=== PATIENT | female | born 1950 | race Caucasian/White ===

== ENCOUNTER 2023-06-25 09:35 | Outpatient (AMB) | payer MEDICARE, SELFPAY ==
--- NOTE | 2023-06-25 10:49 | MHC.OFFWIV ---
Intake Vital Signs 06/25/23 10:51 Height 5 ft 8 in Weight 138 lb BMI 21.0 BP 140/70 H Blood Pressure Location Rt brachial Position Sitting Pulse 86 Pulse Source Pulse Oximeter Temp 98.1 F Temp Source Oral Pulse Oximetry (%) 96 Oxygen Delivery Method Room Air Intake Visit Reasons: EP Lft ear blocked Intake Note: Pt is here today c/o Lt ear blocked Patient Tobacco Use Status: Never used Tobacco Allergies notatum Allergy (Unknown, Uncoded 06/25/23 10:50) Rash Penicillium Notatum Allergy (Unknown, Uncoded 06/25/23 10:50) Rash sulfa Allergy (Unknown, Uncoded 06/25/23 10:50) Rash HPI EP Lft ear blocked HPI Details Patient is a 72-year-old female comes to the walk-in clinic complaining of left ear blockage sensation, with decreased hearing. This has been going on for some time and worsened recently. No report of ear pain, obvious discharge, nasal congestion or other respiratory symptoms, dizziness or headache, weakness, myalgias or malaise, fever chills, or other significant associated symptoms PFSH Social History Patient Tobacco Use Status: Never used Tobacco Review of Systems Const All systems reviewed & are unremarkable except as noted in HPI and below Physical Exam Vital Signs: Last Vital Signs Temp 98.1 F 06/25/23 10:51 Pulse 86 06/25/23 10:51 BP 140/70 H 06/25/23 10:51 Pulse Ox 96 06/25/23 10:51 Oxygen Delivery Method Room Air 06/25/23 10:51 BMI result Body Mass Index 21.0 HEENT Ears: hearing grossly normal bilaterally, external ears normal, TM normal on the left and unable to visualize TM (Right side, due to excessive cerumen) Office Procedures Cerumen Removal From which ear canal was the cerumen removed: left Removal: irrigation Notes: patient tolerated procedure well and no complications [id number] Irrigation/Lavage Assessment & Plan Assessment & Plan (1) Impacted cerumen of left ear: Code(s): H61.22 - Impacted cerumen, left ear Plan: Patient had resolved difficulty hearing and blockage sensation to the left ear after irrigation/lavage by MA. No complications with procedure, and patient was satisfied. She knows to follow up as needed Coding Level of Care Code Est Pt Level 3 (99541) Diagnoses Impacted cerumen of left ear H61.22 CPT Codes Office Procedure - CPT: 84853-Lyt Irrigation/Lavage ([id number])
[2023-06-25 10:51] VITALS: BP 140/70; PULSE 86; TEMP 36.7; O2SAT 96; BMI 21.0
== END 2023-06-25 13:52 | disposition home or self-care (01) ==
PROVIDERS: PCP Internal Medicine; Visit Provider Physician Assistant Medical
DX: H61.22 Impacted cerumen, left ear (principal)
CPT/HCPCS: 69209; 99213

== ENCOUNTER 2023-08-19 13:08 | Outpatient (AMB) | payer MEDICARE, SELFPAY ==
--- NOTE | 2023-08-19 13:09 | MHC.OFFWIV ---
Intake Vital Signs 08/19/23 13:42 Height 5 ft 8 in Weight 139 lb BMI 21.1 BP 160/90 H Blood Pressure Location Lt brachial Position Sitting Pulse 85 Pulse Source Pulse Oximeter Temp 97.6 F Temp Source Temporal Artery Scan Pulse Oximetry (%) 97 Oxygen Delivery Method Room Air Intake Visit Reasons: Tick Bite RT Hip Intake Note: Pt is here today for tick bite on RT hip, Pt states she believes her pulled it out. started today Patient Tobacco Use Status: Never used Tobacco Allergies notatum Allergy (Unknown, Uncoded 08/19/23 14:11) Rash Penicillium Notatum Allergy (Unknown, Uncoded 08/19/23 14:11) Rash sulfa Allergy (Unknown, Uncoded 08/19/23 14:11) Rash Medication List - Last Reconciled 08/19/23 by Rosanna Conner CNP amlodipine 10 mg PO DAILY anastrozole 1 mg PO DAILY fulvestrant 500 mg IM .every month levothyroxine (Synthroid) 88 mcg PO DAILY lorazepam 0.5 mg PO DAILY PRN metoprolol tartrate 25 mg PO BID prednisone 3mg alternative 2mg QOD rosuvastatin 5 mg PO DAILY triamcinolone acetonide 0.025% 1 appl topical BID Do you need a note to return to daycare/school/sports/work: No HPI HPI Comments History of Present Illness Details 73 yo female presents to walk-in clinic with tick bite right hip, she reports her was able to get part of the tick out but not all. She only noticed the tick this morning when she woke up. She denies fever, chills or bulls eye at site. [facility] Social History Patient Tobacco Use Status: Never used Tobacco Review of Systems Const All systems reviewed & are unremarkable except as noted in HPI and below Physical Exam Vital Signs: Last Vital Signs Temp 97.6 F 08/19/23 13:42 Pulse 85 08/19/23 13:42 BP 160/90 H 08/19/23 13:42 Pulse Ox 97 08/19/23 13:42 Oxygen Delivery Method Room Air 08/19/23 13:42 BMI result Body Mass Index 21.1 Const General: no acute distress and well developed Orientation/consciousness: patient oriented x3 Limitations: no limitations Chest Chest palpation & inspection: normal inspection of the chest Resp Effort & Inspection: normal respiratory effort, no cough and no respiratory distress Auscultation: clear to auscultation bilaterally Cardio Rate: regular rate Rhythm: regular rhythm Heart sounds: S1 normal heart sound present and S2 normal heart sound present Peripheral pulses: Peripheral pulses 2+ throughout GI Palpation (GI): Soft to palpation and nontender General: Yes no CVA tenderness Back/Spine/Pelvis Back: no CVA tenderness Neuro General: patient oriented x3 Extrem Right lower extremity: hip/thigh (small area of erythema bug bite w/ black dot noted in the center) Psych Appearance: well kempt Mental Status: mental status grossly normal Affect: normal affect Attitude: cooperative Assessment & Plan Assessment & Plan (1) Tick bite of right hip: Code(s): S70.261A - Insect bite (nonvenomous), right hip, initial encounter; W57.XXXA - Bitten or stung by nonvenomous insect and other nonvenomous arthropods, initial encounter Plan: [age] year female seen today for recent tick bite to right hip w/ some remains. Provider was able to remove the remaining tick which appeared to be a small piece and not the head of the tick, bacitracin ointment applied to tick bite. Will treat PPX with doxycycline 100 mg po bid x 3 days; encouraged to take w/ food to reduce GI upset Return to office for worsening or unresolved symptoms Medications: New doxycycline monohydrate 100 mg PO BID 6 caps 0RF 3 days S70.261A - Insect bite (nonvenomous), right hip, initial encounter, W57.XXXA - Bitten or stung by nonvenomous insect and other nonvenomous arthropods, initial encounter Coding Level of Care Code Est Pt Level 3 (32032) Diagnoses Tick bite of right hip S70.261A; W57.XXXA
[2023-08-19 13:42] VITALS: BP 160/90; PULSE 85; TEMP 36.4; O2SAT 97; BMI 21.1
== END 2023-08-19 14:36 | disposition home or self-care (01) ==
PROVIDERS: PCP Internal Medicine; Visit Provider Nurse Practitioner Acute Care
DX: S70.261A Insect bite (nonvenomous), right hip, initial encounter (principal); W57.XXXA Bitten or stung by nonvenomous insect and other nonvenomous arthropods, initial encounter
CPT/HCPCS: 99213

== ENCOUNTER 2023-09-14 12:44 | Outpatient (AMB) | payer MEDICARE, SELFPAY ==
[2023-09-14 13:02] VITALS: BP 150/90; PULSE 80; TEMP 36.7; O2SAT 97; BMI 21.1
--- NOTE | 2023-09-14 13:02 | MHC.OFFWIV ---
Intake Vital Signs 09/14/23 13:02 Height 5 ft 8 in Weight 139 lb BMI 21.1 BP 150/90 H Blood Pressure Location Rt brachial Position Sitting Pulse 80 Pulse Source Pulse Oximeter Temp 98.0 F Temp Source Temporal Artery Scan Pulse Oximetry (%) 97 Oxygen Delivery Method Room Air Intake Visit Reasons: EP RT Ear/Wax Intake Note: pt is here for right ear blockage Patient Tobacco Use Status: Never used Tobacco Allergies notatum Allergy (Unknown, Uncoded 09/14/23 13:03) Rash Penicillium Notatum Allergy (Unknown, Uncoded 09/14/23 13:03) Rash sulfa Allergy (Unknown, Uncoded 09/14/23 13:03) Rash Do you need a note to return to daycare/school/sports/work: No HPI HPI Comments History of Present Illness Details 73 y/o female patient who presents to walk in clinic with c/o ringing in the right ear. 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 [facility] Social History Patient Tobacco Use Status: Never used Tobacco Review of Systems Const All systems reviewed & are unremarkable except as noted in HPI and below Physical Exam Vital Signs: Last Vital Signs Temp 98.0 F 09/14/23 13:02 Pulse 80 09/14/23 13:02 BP 150/90 H 09/14/23 13:02 Pulse Ox 97 09/14/23 13:02 Oxygen Delivery Method Room Air 09/14/23 13:02 BMI result Body Mass Index 21.1 Const General: comfortable and no acute distress Orientation/consciousness: patient oriented x3 HEENT Head: Yes normocephalic Ears: external ears normal and TM's normal bilaterally Neuro General: patient oriented x3, gait normal and moves all extremities Psych Speech and movement: Normal speech and movement present Assessment & Plan Assessment & Plan (1) Tinnitus of right ear: Code(s): H93.11 - Tinnitus, right ear Plan: Avoid loud noises or places Continue to monitor F/U with PCP. Coding Level of Care Code Est Pt Level 3 (84217) Diagnoses Tinnitus of right ear H93.11 Time Spent (min) 15
== END 2023-09-14 13:25 | disposition home or self-care (01) ==
PROVIDERS: PCP Internal Medicine; Visit Provider Nurse Practitioner Family
DX: H93.11 Tinnitus, right ear (principal)
CPT/HCPCS: 99213

== ENCOUNTER 2024-06-12 08:21 | Outpatient (AMB) | payer MEDICARE, SELFPAY ==
--- NOTE | 2024-06-12 08:55 | MHC.OFFWIV ---
Intake Vital Signs 06/12/24 08:57 BP 150/80 H Blood Pressure Location Rt brachial Position Sitting Pulse 98 Pulse Source Pulse Oximeter Pulse Oximetry (%) 100 Oxygen Delivery Method Room Air Intake Visit Reasons: EP Ears blocked/need flushing Intake Note: Patient here for biat ear blockage. Patient Tobacco Use Status: Never used Tobacco Allergies notatum Allergy (Unknown, Uncoded 06/12/24 08:56) Rash Penicillium Notatum Allergy (Unknown, Uncoded 06/12/24 08:56) Rash sulfa Allergy (Unknown, Uncoded 06/12/24 08:56) Rash Do you need a note to return to daycare/school/sports/work: No HPI HPI Comments History of Present Illness Details History of Present Illness - The patient is a 73-year-old female presenting with hearing impairment due to impacted cerumen in left ear but has cerumen in both ears. - She has been treated in the past for similar problems at this location, noting she has narrow ear canals. - Current symptoms involve a significant blockage in the left ear leading to decreased hearing, severe enough that she notices positional influence when sleeping. - Previous attempts using a home lavage kit did not result in successful wax removal. - The right ear has improved but reports significant constraints in hearing in the left ear due to wax concerns. Physical Exam General: Cooperative, healthy appearing, comfortable, no acute distress and well developed Orientation: Patient oriented x3 Limitations: No limitations Head: Normal to inspection Ears: Hearing impaired in the left ear due to wax blockage, EAC bilat cerumen Nose: Normal External nose present Face and sinus: Normal facial exam Eyes: Appearance normal, both eyes and all related structures Neck: Normal visual inspection and Yes full ROM Respiratory: Normal respiratory effort and able to speak in complete sentences. Skin: No rashes or lesions noted Neuro: Patient oriented x3 Extremities: Normal to inspection [facility] Social History Patient Tobacco Use Status: Never used Tobacco Review of Systems Const All systems reviewed & are unremarkable except as noted in HPI and below Physical Exam Vital Signs: Last Vital Signs Pulse 98 06/12/24 08:57 BP 150/80 H 06/12/24 08:57 Pulse Ox 100 06/12/24 08:57 Oxygen Delivery Method Room Air 06/12/24 08:57 Office Procedures Cerumen Removal From which ear canal was the cerumen removed: bilateral Removal: irrigation Notes: patient tolerated procedure well, no complications and ear canal clear [id number] Irrigation/Lavage Assessment & Plan Assessment & Plan (1) Bilateral impacted cerumen: Code(s): H61.23 - Impacted cerumen, bilateral Plan: The treatment plan involves initially using manual techniques to attempt cerumen removal with irrigation. This method accommodates the patient's preference for avoiding manual extraction and leverages the solution to effectively dissolve the wax. The patient should communicate discomfort promptly during the procedure. Patient was informed and verbally consented to the use of an ambient scribe for clinic note documentation during this visit. Coding Level of Care Code New Pt Level 4 (16100) Diagnoses Bilateral impacted cerumen H61.23 CPT Codes Office Procedure - CPT: 88639-Zqe Irrigation/Lavage ([id number])
[2024-06-12 08:57] VITALS: BP 150/80; PULSE 98; O2SAT 100
== END 2024-06-12 09:26 | disposition home or self-care (01) ==
PROVIDERS: PCP Internal Medicine; Visit Provider Physician Assistant
DX: H61.23 Impacted cerumen, bilateral (principal)

== ENCOUNTER → 2024-06-12 08:21 | Outpatient (BNVA) | payer MEDICARE, SELFPAY | PROVIDERS: PCP Internal Medicine; Visit Provider Physician Assistant | DX: H61.23 Impacted cerumen, bilateral (principal) | CPT/HCPCS: 69209; 99202 ==

== ENCOUNTER 2024-06-19 15:17 | Outpatient (AMB) | payer MEDICARE, SELFPAY ==
--- NOTE | 2024-06-19 15:22 | AM.OFFWIN_ITS ---
Intake Vital Signs 06/19/24 15:24 Weight 141 lb BP 130/86 Blood Pressure Location Rt brachial Position Sitting Pulse 68 Pulse Source Pulse Oximeter Pulse Oximetry (%) 98 Oxygen Delivery Method Room Air Intake Visit Reasons: EP Eye irritation Intake Note: Patient here for eye/face itching that started a couple of days ago, she has tried zyrtec and claritin which have not helped. Patient Tobacco Use Status: Never used Tobacco Allergies notatum Allergy (Unknown, Uncoded 06/19/24 15:25) Rash Penicillium Notatum Allergy (Unknown, Uncoded 06/19/24 15:25) Rash sulfa Allergy (Unknown, Uncoded 06/19/24 15:25) Rash Do you need a note to return to daycare/school/sports/work: No HPI HPI Comments History of Present Illness Details This is a 73-year-old female with a past medical history of hypertension, hypothyroidism, hyperlipidemia and breast cancer presenting for evaluation of facial itching that she has had for the past 5 days. Patient has used Claritin x1 and Zyrtec x1 without relief of her symptoms. Patient also used a lotion called Sarna anti itch that was also not helpful. Patient denies any new exposures including lotions, soaps, detergents, cosmetics or new med ications. Patient states that she recently decreased her dose of prednisone from 2 mg to 1 mg daily. She denies having any fevers or chills. [facility] Social History Patient Tobacco Use Status: Never used Tobacco Review of Systems Const All systems reviewed & are unremarkable except as noted in HPI and below Eyes Reports no additional complaints ENT Reports no additional complaints Card Reports no additional complaints Resp Reports no additional complaints GI Reports no additional complaints Reports no additional complaints Musc Reports no additional complaints Skin/Breast Reports system reviewed and no additional complaints, except as documented, Denies change in pigmentation, Denies changing lesions, Reports pruritus (facial only), Denies lesions, Denies non-healing lesions, Denies erythema, Denies rash and Denies skin pain Neuro Reports no additional complaints Psych Reports no additional complaints Endo Reports no additional complaints Jessee/Lymph Reports no additional complaints Aller/Immun Reports no additional complaints Physical Exam Const General: cooperative, healthy appearing, comfortable, no acute distress, well developed, alert, awake and Physically active Nutritional Appearance: average body habitus Orientation/consciousness: patient oriented x3 Limitations: no limitations Skin Other: There is very faint erythema with minimal scaling across forehead and bridge of nose, minimal faint erythema malar region of the face. No edema, no warmth or tenderness to touch. Neuro General: patient oriented x3 Psych Appearance: grossly normal Mental Status: mental status grossly normal Insight: Good insight present (Psych) Judgement: Good judgement present (Psych) Assessment & Plan Assessment & Plan (1) Facial dermatitis: Comment: Patient would likely benefit from a topical steroid however given that her symptoms are facial only, this will be deferred at this time. Patient will be encouraged to take Claritin once daily for 2 weeks. If no relief of her symptoms, patient will initiate diphenhydramine 12.5 mg q.8 hours if tolerated. Patient is in agreement with this plan of care. Code(s): L30.9 - Dermatitis, unspecified Plan: Claritin once daily x2 weeks; follow up only as needed. Coding Level of Care Code Est Pt Level 3 (14098) Diagnoses Facial dermatitis L30.9 Time Spent (min) 20
[2024-06-19 15:24] VITALS: BP 130/86; PULSE 68; O2SAT 98
== END 2024-06-19 16:07 | disposition home or self-care (01) ==
PROVIDERS: PCP Internal Medicine; Visit Provider Physician Assistant
DX: L30.9 Dermatitis, unspecified (principal)

== ENCOUNTER → 2024-06-19 15:17 | Outpatient (BNVA) | payer MEDICARE, SELFPAY | PROVIDERS: PCP Internal Medicine; Visit Provider Physician Assistant | DX: L30.9 Dermatitis, unspecified (principal) | CPT/HCPCS: 99212 ==

== ENCOUNTER 2024-10-31 15:19 | Outpatient (AMB) | payer MEDICARE, SELFPAY ==
--- NOTE | 2024-10-31 15:32 | MHC.OFFWIV ---
Intake Vital Signs 10/31/24 15:33 Height 5 ft 8 in Weight 132 lb BMI 20.1 BP 128/70 Blood Pressure Location Rt brachial Position Sitting Pulse 83 Pulse Source Pulse Oximeter Temp 98.1 F Temp Source Oral Pulse Oximetry (%) 98 Oxygen Delivery Method Room Air Intake Visit Reasons: EP b/l ear block Intake Note: pt presents with bilateral ears sound muffled and also c/o fatigue Patient Tobacco Use Status: Never used Tobacco Allergies Sulfa (Sulfonamide Antibiotics) Allergy (Mild, Verified 10/31/24 15:35) Rash Do you need a note to return to daycare/school/sports/work: No HPI HPI Comments History of Present Illness Details History - The patient is a 74-year-old female presenting with ear pain. - She wants to see if she has impacted cerumen causing ear pressure. - Reports a sensation of pressure in both ears, described as feeling like talking in a can, present for about three months. - No associated pain, discharge, or cold symptoms. - Patient is using Debrox for earwax removal. - Has no cold symptoms, fever, chills, GU[place]O, dizziness, sore throat, or cough. Physical Exam General: Cooperative, healthy appearing, comfortable, no acute distress and well developed Head: Normal to inspection Ears: External ears normal bilaterally. No tragus or mastoid tenderness noted. Cerumen noted in the canal. TM's not visualized. Patient reports feeling of pressure in both ears, possibly due to wax buildup. No discharge or cold symptoms reported. Face and sinus: Normal facial exam. No TTP of the sinuses. Neck: Normal visual inspection. Full ROM. No lymphadenopathy noted. Respiratory: Normal respiratory effort and able to speak in complete sentences. Clear to auscultation bilaterally. No w/r/r noted. Cardiac: RRR, no m/r/g noted. Normal S1 and S2 noted. Patient was informed and verbally consented to the use of an ambient scribe for clinic note documentation during this visit. [facility] Social History Patient Tobacco Use Status: Never used Tobacco Review of Systems Const All systems reviewed & are unremarkable except as noted in HPI and below Physical Exam Vital Signs: Last Vital Signs Temp 98.1 F 10/31/24 15:33 Pulse 83 10/31/24 15:33 BP 128/70 10/31/24 15:33 Pulse Ox 98 10/31/24 15:33 Oxygen Delivery Method Room Air 10/31/24 15:33 BMI result Body Mass Index 20.1 Office Procedures Cerumen Removal From which ear canal was the cerumen removed: bilateral Removal: irrigation Notes: patient tolerated procedure well, no complications and ear canal clear [id number] Irrigation/Lavage Assessment & Plan Assessment & Plan (1) Ear pain: Code(s): H92.09 - Otalgia, unspecified ear Qualifiers: Laterality: bilateral Qualified Code(s): H92.03 - Otalgia, bilateral (2) Cerumen impaction: Code(s): H61.20 - Impacted cerumen, unspecified ear Qualifiers: Laterality: bilateral Qualified Code(s): H61.23 - Impacted cerumen, bilateral Plan Most likely pain from cerumen impaction plan - Plan to irrigate both ears using the water method to remove cerumen. - Post-procedure examination to ensure no residual cerumen or complications. - avoid q-tips in the ears - follow up with PCP Orders: Orders AMB Cerumen Removal Today H61.23 - Impacted cerumen, bilateral Coding Level of Care Code Est Pt Level 3 (82860) Diagnoses Otalgia of both ears H92.03 Laterality: bilateral Bilateral impacted cerumen H61.23 Laterality: bilateral CPT Codes Office Procedure - CPT: 09378-Ykr Irrigation/Lavage ([id number])
[2024-10-31 15:33] VITALS: BP 128/70; PULSE 83; TEMP 36.7; O2SAT 98; BMI 20.1
--- OUTSIDE RECORDS SUMMARY | 2024-10-31 16:12 | XMS_ITS | Patient Health Record ---
Author Organization [facility] Address [address] [place] [id number] Care Team Providers Care Director [employer] Name Role Phone Blair Foreman MD Primary Care Provider Prince Storm [phone] Allergies Allergen (clinical drug ingredient) Drug/Non Drug Allergy documented on EMR Reaction Allergy Type Onset Date Status Sulfa Unknown Drug Allergy Active olsalazine Dipentum Unknown Drug Allergy Active sulfasalazine Azulfidine (uncoded) Unknown Allergy Active Reason For Referral No Information Medications Medication SIG (Take, Route, Frequency, Duration) Notes Start Date End Date Status Nyamyc 072550 UNIT/GM 1 application Exte rnally Twice a day for 30 days Active Synthroid 50 MCG 1 tablet Orally Once a day Active Metoprolol-HCTZ ER 25-12.5 MG 1 tablet Orally Once a day A ctive Simvastatin 10 MG 1 tablet in the even ing Orally Once a day Active Nystatin 696207 UNIT/GM USE DIRECTED WHEN CHANGING OSTOMY BAG for 30 Activ e Problems Problem Type SNOMED Code ICD Code Onset Dates Problem Status W/U Status Risk Notes Problem Ulcerative colitis, 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 Plan Of Treatment Future Test Test Name Order Date FLEXIBLE SIGMOIDOSCOPY WITH BIOPSY 04/19 Insurance Providers Payer Name Payer Address Payer Phone Subscriber Number Group Number Insured Name Patient Relationship to Insured Coverage Start Date Coverage End Date [facility] [employer] [address] [place] [address] [id number] LEVI GUY Self - patient is the insured Medical (General) History Medical History History ICD Code Ulcerative colitis--diagnose d in 1989---s/p subtotal colectomy for refractory disease in 1995-permanent ileostomy--last flexsig in 11/2006 revealed some chronic inflammatory changes in the rectal stump and biopsies were negative for dysplasia--she does have a very tight anal sphincter Hemolytic anemia Hypertension Osteoporosis Breast cancer--2009-Dr. 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
--- OUTSIDE RECORDS SUMMARY | 2024-10-31 16:12 | XMS_ITS | Encounter Summary ---
Author Organization [facility] Address [address] [place] [address] Phone Care Team Providers Care Milliner Helper Name Role Phone Marybeth Denton MD Unavailable Karo Rondon NP Unavailable Blair Foreman MD Primary Care Provider Stephen Nelson MD Unavailable [phone] Brice Livia CNP Unavailable Blair Foreman MD Unavailable Petty De La Rosa NP Unavailable [phone] Encounter Details Date Type Department Care Team (Late st Contact Info) Description 09/28/2024 Orders Only [facility] [address] [place] [address] [place]is [place] [address] [place] [address] [email or web address] Lobular carcinoma of right breast, stage 4 (Primary Dx) Social History Tobacco Use Types Packs/Day Years Used Date Smoking Tobacco: Never Smokeless Tobacco: Never Alcohol Use Standard Drinks/Week Comments Not Currently 0 (1 standard drink = 0.6 oz pur e alcohol) last drink 06/2024 Education Answer Date Recorded Are you interested in more education? Not on abimbola e 07/08/2022 Are you concerned about learning? Not on file 07/08/2022 No 07/08/2022 No 07/08/2022 Digital Access Answer Date Recorded No 08/04/2022 No 08/04/2022 Reliable internet access at home? Not on file 08/04/2022 Device with a working camera? Not on file Intimate Partner Violence Answer Date R ecorded Are you denied basic needs s uch as food, clothing, or medical care? No 05/01/2024 In the past 12 months have y ou been in a relationship with a person who hurts, threatens, or tries to control you? No 05/01/2024 Are you denied basic needs s uch as food, clothing, or medical care? No 05/01/2024 In the past 12 months have y ou been in a relationship with a person who hurts, threatens, or tries to control you? No 05/01/2024 Comments No Sex and Gender Information Value Date Recorded Sex Assigned at Female 03/21/2017 9:38 AM EST Legal Sex Female 10:01 PM EDT Gender Identity Female 03/21/2017 9:38 AM EST Sexual Orientation Straight 03/21/2017 9: 38 AM EST documented as of this encounter Plan of Treatment Upcoming Encounters Date Type Department Care Team (Late st Contact Info) Description 11/01/2024 1:10 PM EDT Appointment [facility] Laboratory [address] [place] [address] Stephen Nelson MD [address] [place] [address] 11/01/2024 2:20 PM EDT Infusion [facility] at [facility] [address] [place] [address] Stephen Nelson MD [address] [place] [address] 11/29/2024 2:30 PM EDT Appointment [facility] Laboratory [address] [place] [address] Stephen Nelson MD [address] [place] [address] 11/29/2024 3:40 PM EDT Infusion [facility] at [address] [address] Stephen Nelson MD [address] [place] [address] 12/03/2024 9:30 AM EDT Office Visit [facility] Internal Medicine [address] [place] [address] Blair Foreman MD [address] [place] [address] 12/27/2024 2:20 PM EDT Appointment [facility] Laboratory [address] [place] [address] Stephen Nelson MD [address] [place] [address] 12/27/2024 3:20 PM EDT Office Visit [facility] at [address] [address] Stephen Nelson MD [address] [place] [address] 12/27/2024 4:20 PM EDT Infusion [facility] at [address] [address] Stephen Nelson MD [address] [place] [address] 01/31/2025 11:00 AM EST Office Visit [facility] Rheumatology [address] [place] [address] Maria Del Rosario Graham MD [address] [facility], [address] [place] [address] [email or web address] documented as of this encounter Results * Comprehensive metabolic panel (10/04/2024 8:11 AM EDT) SODIUM 143 133 - 146 mmol/L [facility] POTASSIUM 4.0 3.3 - 5.1 mmol/L [facility] CHLORIDE 104 96 - 108 mmol/L [facility] CO2 27 21 - 35 mmol/L [facility] BUN 8 6 - 19 mg/dL [facility] CREATININE 0.80 0.5 - 1.5 mg/dL [facility] GLUCOSE 88 70 - 99 mg/dL [facility] ALBUMIN 4.3 3.9 - 4.8 g/dL [facility] TOTAL PROTEIN 7.2 6.5 - 8.0 g/dL [facility] CALCIUM 9.8 8.4 - 10.3 mg/dL [facility] ALKALINE PHOSPHATASE 76 39 - 117 U/L [facility] TOTAL BILIRUBIN 0.5 0.0 - 1.2 mg/dL [facility] AST 23 0 - 37 U/L [facility] ALT 16 0 - 40 U/L [facility] GLOBULIN 2.9 1 - 4.8 g/dL [facility] EGFR 77 >59 mL/min/1.7 3m2 [facility] Comment:Estimated glomerular filtration rate calculated using the CKD-EPI refit equation. ANION GAP 16 10 - 20 mmol/L [facility] Blood 10/04/2024 8:11 AM EDT 10/04/2024 8:15 AM EDT us Livia Narvaez CNP LAB BLOOD ORDERABLES Final Resul t [facility] [address] [place] [address] * (ABNORMAL) CBC and differential (10/04/2024 8:11 AM EDT) WBC 7.62 4.00 - 11.00 K/uL [facility] RBC 4.57 4.00 - 5.20 M/uL [facility] HGB 13.0 12.0 - 16.0 g/dL [facility] HCT 41.2 36.0 - 46.0 % [facility] PLT 379 150 - 450 K/uL [facility] MCV 90.2 80.0 - 100.0 fL [facility] MCH 28.4 27.0 - 31.0 pg [facility] MCHC 31.6(L) 32.0 - 36.0 g/dL [facility] RDW 18.5(H) 11.5 - 14.5 % [facility] MPV 11.4 8.4 - 12.0 fL [facility] NRBC 0.00 0.00 /100 WBCs [facility] ABSOLUTE NRBC 0.00 0.00 K/uL [facility] DIFF METHOD Auto [facility] NEUTS 59.1 48.0 - 76.0 % [facility] LYMPHS 21.9 18.0 - 41.0 % [facility] MONOS 14.0(H) 4.0 - 11.0 % [facility] EOS 3.3 0.0 - 5.0 % [facility] BASOS 1.2 0.0 - 1.5 % [facility] Granulocytes, immature (%) 0.5 0.0 - 0.9 % [facility] ABSOLUTE NEUTS 4.50 1.92 - 7.60 K/uL [facility] ABSOLUTE LYMPHS 1.67 0.72 - 4.10 K/uL [facility] ABSOLUTE MONOS 1.07 0.16 - 1.10 K/uL [facility] ABSOLUTE EOS 0.25 0.00 - 0.50 K/uL [facility] ABSOLUTE BASOS 0.09 0.00 - 0.15 K/uL [facility] Granulocytes, immature 0.04 0.00 - 0.09 K/uL [facility] Blood 10/04/2024 8:11 AM EDT 10/04/2024 8:15 AM EDT us Livia Narvaez ADMINISTRATIVE ANALYST LAB BLOOD ORDERABLES Final Resul t [facility] [address] [place] [address] documented in this encounter Visit Diagnoses Diagnosis Lobular carcinoma of right breast, stage 4- Primary documented in this encounter Additional Health Concerns Assessment Noted Time PHQ-2 Depression Total Score: 0 05/01/19 25 4:07 PM EST documented as of this encounter Care Teams Milliner Helper Relationship Specialty Start Date End Date Blair Foreman MD [address] [place] [address] [email or web address] PCP - General Internal Medicine 01/07/20 Marybeth Denton MD [address] [place] [address] [email or web address] 12/04/19 Karo Rondon NP [address] [place] [address] Obstetrics and Gynecology 12/04/19 Stephen Nelson MD [address] [place] [address] [email or web address] Primary Oncologist Medical Oncology 02/02/21 Livia Narvaez CNP [address] [place] [address] [email or web address] Nurse Practitioner Medical Oncology 07/04/21 Blair Foreman MD [address] [place] [address] [email or web address] Insurance Assigned Provider 06/18/23 Petty De La Rosa NP [address] [place] [address] (work) [email or web address] Nurse Practitioner 08/02/24 documented as of this encounter Additional Source Comments The information contained in this document represents components of the legal health record. It is not the complete legal health record.[facility]
== END 2024-10-31 16:40 | disposition home or self-care (01) ==
PROVIDERS: PCP Internal Medicine; Visit Provider Physician Assistant Medical
DX: H92.03 Otalgia, bilateral (principal); H61.23 Impacted cerumen, bilateral

== ENCOUNTER → 2024-10-31 15:19 | Outpatient (BNVA) | payer MEDICARE, SELFPAY | PROVIDERS: PCP Internal Medicine; Visit Provider Physician Assistant Medical | DX: H92.03 Otalgia, bilateral (principal); H61.23 Impacted cerumen, bilateral | CPT/HCPCS: 69209; 99212 ==

== ENCOUNTER 2025-01-04 10:43 | Outpatient (AMB) | payer MEDICARE, SELFPAY ==
--- OUTSIDE RECORDS SUMMARY | 2025-01-02 07:47 | XMS_ITS | Encounter Summary ---
Author Organization [facility] Address [address] [place] [address] Phone Care Team Providers Care Enrollment Processor Name Role Phone aMrybeth Denton MD Unavailable Karo Rondon NP Unavailable Blair Foreman MD Primary Care Provider [phone] Stephen Nelson MD Unavailable [phone] Brice Livia CNP Unavailable Blair Foreman MD Unavailable [phone] Petty De La Rosa DIRECTOR OF MATH Unavailable Encounter Details Date Type Department Care Team (Latest Contact Info) Description 01/02/2025 7:47 AM EDT - 01/02/2025 11:59 PM EDT Hospital Encounter [facility] [address] [place] [address] Stephen Nelson MD [address] [place] [address] Arrived Discharge Disposition: Home or Self Care Social History Tobacco Use Types Packs/Day Years [...] AM EST documented as of this encounter Medications at Time of Discharge amLODIPine (NORVASC) 10 MG tabletIndications: Essential hypertension Take 0.5 tablets (5 mg total) by mouth 2 (two) times a day. 30 tablet 11 5 anastrozole (ARIMIDEX) 1 mg tablet Take 1 tablet (1 mg total) by mouth nightly at bedtime. 90 tablet 3 5 bacillus coagulans-inulin 1 billion-250 cell-mg Cap Take 250 mg by mouth every evening. cholecalciferol (VITAMIN D3) 25 MCG (1,000 unit) tablet Take 1,000 Units by mouth 2 (two) times a day. cod liver oil Cap Take 1 capsule by mouth daily with dinner. 230mg coenzyme Q10 100 mg capsule Take 100 mg by mouth Every Afternoon. COLLAGEN MISC Take 2,250 mg by mouth Every Afternoon. cyanocobalamin, vitamin B-12, (VITAMIN B-12 SL) Place 2,000 mcg under the tongue every morning. folic acid (FOLVITE) 1 MG tabletIndications: Adult Still's disease,Methotrexa te, parts counterman, current use Take 1 tablet (1 mg total) by mouth 2 (two) times a day. Except on mondays 180 tablet 3 5 glucosamine 500 mg Cap Take 1,500 mg by mouth daily. LORazepam (ATIVAN) 1 MG tablet Take 0.5 mg by mouth nightly at bedtime. 1 Medication-Free Text FASLODEX ONCE A MONTH [facility] Medication-Free Text Left arm ready to Wear Compression Sleeve 20-30 MM HG Refills 2 every 6 months for Life ICD-10 code I89.0 Arm lymphedema in the setting of breast Cancer ( Consider Zina Strong as the fabric will provide more support in the upper arm) 1 Unspecified 2 5 Medication-Free Text Left hand Ready to wear Compression gloves 20-30 MM Hg Refills 2 every 6 months for life ICD-10 code I89.0 Arm lymphedema in the setting of breast Cancer ( Consider Zina Strong as the fabric will provide more support in the upper arm) 1 Unspecified 2 5 METHOTREXATE 2.5 MG Oral tabletIndications: Adult Still's disease,Methotrexa te, fci, current use TAKE 4 TABLETS BY MOUTH EVERY 7 DAYS 16 tablet 1 5 methotrexate 2.5 MG Oral tabletIndications: Adult Still's disease Take 5 tabs every 7 days 20 tablet 2 5 metoprolol tartrate (LOPRESSOR) 25 MG tabletIndications: Essential hypertension TAKE ONE TABLET BY MOUTH TWO TIMES A DAY 60 tablet 11 5 multivitamins capsule Take 1 capsule by mouth daily. nystatin (NYSTOP) powder Apply 1 application topically 2 (two) times a week. 2 nystatin (NYSTOP) powderIndications: Ileostomy in place Apply externally on abdomen twice a week 30 g 3 5 ostomy supplies (ARLEN-FIT NATURA DRAINABLE POUCH) 1 3 MiscIndications:En counter for ostomy care education 1 Box by Miscellaneous route as directed. 1 each 11 1 ostomy supplies MiscIndications:En counter for ostomy care education 1 each by Miscellaneous route as directed. ConvaTec Arlen-Fit Natura Moldable Durahesive skin barrier with hydrocolloid flexible collar -03/17 in. 22-33mm ref# [id number] 1 each 11 1 ostomy supplies MiscIndications:En counter for ostomy care education 1 each by Miscellaneous route as directed. ToniKesson Skin Barrier Rings 03/29 thickness-diamete r 2 1 each 1 ostomy supplies MiscIndications:En counter for ostomy care education 1 each by Miscellaneous route as directed. Safe 'n Simple No Sting Skin Barrier Film Wipes 1 each 1 ostomy supplies MiscIndications:En counter for ostomy care education 1 each by Miscellaneous route as directed. [facility] Protective Skin Barrier and Filler ref#[id number] 1 each 11 1 predniSONE (DELTASONE) 1 MG tabletIndications: Adult Still's disease,intermediate current use of systemic steroids Take 4 tablets (4 mg total) by mouth daily. 360 tablet 1 5 rosuvastatin (CRESTOR) 5 MG tabletIndications: Mixed hyperlipidemia TAKE ONE TABLET BY MOUTH EVERY DAY 30 tablet 11 5 SYNTHROID 88 mcg tablet TAKE 1 TABLET EVERY MORNING 90 tablet 3 4 zinc 50 mg Tab tablet Take 50 mg by mouth daily. documented as of this encounter Plan of Treatment Upcoming Encounters Date Type Department Care Team (Late st Contact Info) Description 01/30/2025 2:40 PM EST Infusion [facility] at [address] [address] Stephen Nelson MD [address] [place] [address] 01/31/2025 11:00 AM EST Office Visit [facility] Rheumatology [address] [place] [address] Maria Del Rosario Graham MD [address] [place] [address], [address] [place] [address] [email or web address] 02/28/2025 9:40 AM EST Infusion [facility] at [address] [address] Stephen Nelson MD [address] [place] [address] 03/28/2025 1:30 PM EST Appointment [facility] [address] [place] [address] Stephen Nelson MD [address] [place] [address] 03/28/2025 2:30 PM EST Office Visit [facility] at [address] [address] Tracy Worrell FNP [address] [place] [address] 03/28/2025 3:20 PM EST Infusion [facility] at [address] [address] Stephen Nelson MD [address] [place] [address] 06/14/2025 1:00 PM EDT Office Visit [facility] [place] Internal Medicine [address] [place] [address] Blair Foreman MD [address] [place] [address] documented as of this encounter Procedures Procedure Name Priority Date/Time Associated Diagnosis Comments COMPREHENSIVE METABOLIC PANEL Routine 01/02/2025 7:47 AM EDT Lobular carcinoma of right breast, stage 4 CBC AND DIFFERENTIAL Routine 01/02/2025 7:47 AM EDT Lobular carcinoma of right breast, stage 4 documented in this encounter Results * Comprehensive metabolic panel (01/02/2025 7:47 AM EDT) SODIUM 142 133 - 146 mmol/L [facility] POTASSIUM 4.0 3.3 - 5.1 mmol/L [facility] CHLORIDE 103 96 - 108 mmol/L [facility] CO2 27 21 - 35 mmol/L [facility] BUN 10 6 - 19 mg/dL [facility] CREATININE 0.70 0.5 - 1.5 mg/dL [facility] GLUCOSE 93 70 - 99 mg/dL [facility] ALBUMIN 4.6 3.9 - 4.8 g/dL [facility] TOTAL PROTEIN 8.0 6.5 - 8.0 g/dL [facility] CALCIUM 9.8 8.4 - 10.3 mg/dL [facility] ALKALINE PHOSPHATASE 87 39 - 117 U/L [facility] TOTAL BILIRUBIN 0.4 0.0 - 1.2 mg/dL [facility] AST 18 0 - 37 U/L [facility] ALT 11 0 - 40 U/L [facility] GLOBULIN 3.4 1 - 4.8 g/dL [facility] EGFR 91 >59 mL/min/1.7 3m2 [facility] Comment:Estimated glomerular filtration rate calculated using the CKD-EPI refit equation. ANION GAP 16 10 - 20 mmol/L [facility] Blood 01/02/2025 7:47 AM EDT 01/02/2025 7:58 AM EDT us Stephen Nelson MD LAB BLOOD ORDERABLES Final Res ult [facility] [address] [place] [address] * (ABNORMAL) CBC and differential (01/02/2025 7:47 AM EDT) WBC 5.77 4.00 - 11.00 K/uL [facility] RBC 4.92 4.00 - 5.20 M/uL [facility] HGB 14.3 12.0 - 16.0 g/dL [facility] HCT 45.8 36.0 - 46.0 % [facility] PLT 384 150 - 450 K/uL [facility] MCV 93.1 80.0 - 100.0 fL [facility] MCH 29.1 27.0 - 31.0 pg [facility] MCHC 31.2(L) 32.0 - 36.0 g/dL [facility] RDW 16.2(H) 11.5 - 14.5 % [facility] MPV 11.0 8.4 - 12.0 fL [facility] NRBC 0.00 0.00 /100 WBCs [facility] ABSOLUTE NRBC 0.00 0.00 K/uL [facility] DIFF METHOD Auto [facility] NEUTS 46.3(L) 48.0 - 76.0 % [facility] LYMPHS 35.0 18.0 - 41.0 % [facility] MONOS 14.4(H) 4.0 - 11.0 % [facility] EOS 2.3 0.0 - 5.0 % [facility] BASOS 1.7(H) 0.0 - 1.5 % [facility] Granulocytes, immature (%) 0.3 0.0 - 0.9 % [facility] ABSOLUTE NEUTS 2.67 1.92 - 7.60 K/uL [facility] ABSOLUTE LYMPHS 2.02 0.72 - 4.10 K/uL [facility] ABSOLUTE MONOS 0.83 0.16 - 1.10 K/uL [facility] ABSOLUTE EOS 0.13 0.00 - 0.50 K/uL [facility] ABSOLUTE BASOS 0.10 0.00 - 0.15 K/uL [facility] Granulocytes, immature 0.02 0.00 - 0.09 K/uL [facility] Blood 01/02/2025 7:47 AM EDT 01/02/2025 7:58 AM EDT us Stephen Nelson MD LAB BLOOD ORDERABLES Final Res ult [facility] [address] [place] [address] documented in this encounter Visit Diagnoses Diagnosis Lobular carcinoma of right breast, stage 4 documented in this encounter Additional Health Concerns Assessment Noted Time PHQ-2 Depression Total Score: 0 05/01/19 25 4:07 PM EST documented as of this encounter Care Teams Enrollment Processor Relationship Specialty Start Date End Date Blair Foreman MD [address] [place] [phone] [email or web address] PCP - General Internal Medicine 01/07/20 Marybeth Denton MD [address] [place] [phone] [email or web address] 12/04/19 Karo Rondon NP [address] [place] [address] Obstetrics and Gynecology 12/04/19 Stephen Nelson MD [address] [place] [phone] [email or web address] Primary Oncologist Medical Oncology 02/02/21 Livia Narvaez CNP [address] [place] [phone] [email or web address] Nurse Practitioner Medical Oncology 07/04/21 Blair Foreman MD [address] [place] [address] [email or web address] Insurance Assigned Provider 06/18/23 Petty De La Rosa NP [address] [place] [address] [email or web address] Nurse Practitioner 08/02/24 documented as of this encounter Additional Source Comments The information contained in this document represents components of the legal health record. It is not the complete legal health record.[facility]
--- OUTSIDE RECORDS SUMMARY | 2025-01-02 09:00 | XMS_ITS | Encounter Summary ---
Author Organization [facility] Address [address] [place] [address] Phone Care Team Providers Care Commercial Pilot Name Role Phone Marybeth Denton MD Unavailable [phone] Karo Rondon NP Unavailable Blair Foreman MD Primary Care Provider [phone] Stephen Nelson MD Unavailable [phone] Livia Narvaez CNP Unavailable Blair Foreamn MD Unavailable [phone] Petty De La Rosa CATERING AND EVENTS MANAGER Unavailable Reason for Visit * Reason Comments Follow Up Visit Encounter Details Date Type Department Care Team (Late st Contact Info) Description 01/02/2025 9:00 AM EDT Office Visit [facility] at [address] [address] Stephen Nelson MD [address] [place] [phone] Lobular carcinoma of right breast, stage 4 (Primary Dx); 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, 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, 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; Adult Still's disease Social History Tobacco Use Types Packs/Day Years [...] AM EST documented as of this encounter Last Filed Vital Signs Vital Sign Reading Time Taken Comments Blood Pressure 146/84 01/02/2025 9:02 AM EDT Pulse 90 01/02/2025 9:02 AM EDT Temperature 36.4 C (97.5 F) 01/02/2025 9:02 AM EDT Respiratory Rate - - Oxygen Saturation 98% 01/02/2025 9:02 AM EDT Inhaled Oxygen Concentration - - Weight 59.3 kg (130 lb 12.8 oz) 01/02/2025 9:02 AM EDT Height 173.8 cm (5' 8.43 ) 01/02/2025 9:02 AM ED T Body Mass Index 19.64 01/02/2025 9:02 AM EDT documented in this encounter Progress Notes * Stephen Nelson MD - 01/02/2025 9:00 AM EDT Hematology/ Medical Oncology Progress Note [facility] at [facility] Alexandra Castellanos 1950 [id number] MEDICAL ONCOLOGIST: Stephen Nelson MD PATIENT IDENTIFICATION: Alexandra Castellanos is a 74 y.o. female who is here today for management ofmetastatic breast cancer. Oncology History Overview Note 05/2010: Diagnosed with right T2 N1 M0, ILC breast cancer. Bilateral mastectomies (left side was preventative). Treated with 4 cycles of Cytoxan and Taxotere and she took Anastrozole for 1-2 months (d/c d/t concerns of decreased bone density). 07/2019: Pt reports 1 month of numbness in left upper extremity, and bulkiness in left axilla. More recently, swelling noted in the left supraclavicular region 08/01/2019; Lymph node, left axilla, core needle biopsy ([facility]) - Metastatic lobular carcinoma with signet ring cell differentiation. Semiquantitative immunohistochemical evaluation for estrogen and progesterone receptors (Suman score): A. Estrogen Receptor: Positive in invasive tumor cells. (percentage + intensity score = 8) B. Progesterone Receptor: Positive in invasive tumor cells. (percentage + intensity score = 5) Semiquantitative immunohistochemical evaluation for HER-2/michael protein (ASCO/CAP 2018): A. c-erb B2 (HER-2/michael protein) result: Negative (1+) Comment: The current metastatic lobular carcinoma is compared to the previous contralateral invasive lobular carcinoma of the right breast ([id number], mastectomy) and is histologically the same. 08/08/2020: Oncology visit, Dr Marybeth Denton ([facility]) Patient to start Anastrazole. Continue staging workup. 08/16/19 Bone scan: Evidence of extensive bone mets, involving skull, vertebral bodies, ribs, sternum, pelvic bones, long bones CT C/A/P: Notable for L cervical, axillary and mediastinal LAD, without evidence of visceral metastases 08/31/2019: Oncology visit, Dr Marybeth Denton Pt has decided not to pursue treatment w/ ibrance. Tolerating AI. Not interested in Zometa or BRCA testing for now. 01/24/2020: CT C/A/P & bone scan: Stable disease 07/04/2020: [facility] Breast [facility] gene panel negative for pathologic mutation 08/05/2020: Bone scan: Progression of multifocal osteoblastic metastatic disease with new osteoblastic lesions in the right proximal femur and increased radiotracer uptake in areas of prior metastatic disease. CT C/A/P: 1. Slightly enlarged mediastinal and right hilar lymphadenopathy. 1.0 cm AP, previously 0.7 cm. Moderately enlarging top normal left external iliac lymph node, concerning for tumor involvement, but could be reactive. 2. Mildly improved moderate right and small left layering pleural effusions. 3. Large bony metastases as detailed above. 4. Right lower quadrant ileostomy. No evidence of bowel obstruction. Spring 2020: Diagnosed with adult Stills disease. 08/12/2020: Oncology visit, Dr Marybeth Denton Pt prefers to switch to Tamoxifen. Declines Ibrance and/or Zometa. 12/30/2020: CT C/A/P w/contrast ([facility]) Suspected metastatic pleural effusions are unchanged in volume. Mild pleural thickening anteriorly on the right and along the left heart border on the left is also unchanged. Metastatic hilar adenopathy, unchanged. Diffuse metastatic disease in the bones. There are foci of increased sclerosis in the L5 vertebral body and medial left clavicle, however this may represent treatment effect. Interval healing of a fracture in the medial left clavicle. NM bone scan ([facility]) Slightly increased conspicuity of some of the pre-existing foci in the left medial clavicle, left proximal femur, and right posterior fourth rib near the costovertebral junction. Remainder of the pre-existing foci in the axial and appendicular skeleton have not significantly changed. No new focus is seen. 01/08/2021: Oncology visit, Dr Gabriela Barron Scans discussed. Ibrance and Zometa once again recommended. Pt concerned regarding Stills disease and other side effects. She wishes to think further before pursuing further treatment. Pt stopped tamoxifen 3 days ago due to a rash. Breast cancer 01/12/2021 Initial Diagnosis Breast cancer 03/20/2021 - Systemic Therapy Control; FULVESTRANT Stephen Nelson MD INTERVAL HISTORY: Alexandra returns today for follow-up. She is working with rheumatology on progressive rheumatologic complaints and elevation of inflammatory markers. She is on a higher dose of prednisone. She is also now on methotrexate. Quite a bit of fatigue. Workup underway. She has no pain. Appetite and weight are stable. No headaches. No other symptoms of progressive breast cancer. REVIEW OF SYSTEMS: Remainder of review of symptoms otherwise unremarkable and unchanged. PHYSICAL EXAM: ECO- Fully active, able to carry on all pre-disease performance without restriction Weight: 59.3 kg (130 lb 12.8 oz) Height: 173.8 cm (5' 8.43 ) Temperature: 36.4 ??C (97.5 ??F) Heart Rate: 90 BP: (!) 146/84 Respiratory Rate: 14 SpO2: 98 % Physical Exam Constitutional: General: She is not in acute distress. Appearance: She is well-developed. She is not diaphoretic. HENT: Head: Normocephalic and atraumatic. Nose: Nose normal. Eyes: General: No scleral icterus. Cardiovascular: Rate and Rhythm: Normal rate and regular rhythm. Pulmonary: Effort: Pulmonary effort is normal. No respiratory distress. Musculoskeletal: General: No deformity. Normal range of motion. Cervical back: Normal range of motion. Skin: General: Skin is warm and dry. Coloration: Skin is not pale. Findings: No erythema or rash. Neurological: Mental Status: She is alert and oriented to person, place, and time. Psychiatric: Behavior: Behavior normal. Thought Content: Thought content normal. Judgment: Judgment normal. RADIOLOGY: No results found. Radiology results were reviewed personally. Recent lab tests were reviewed personally, discussed with the patient, and are notable for Latest Reference Range & Units 01/02/25 07:47 Sodium 133 - 146 mmol/L 142 Potassium 3.3 - 5.1 mmol/L 4.0 Chloride 96 - 108 mmol/L 103 Carbon Dioxide 21 - 35 mmol/L 27 BUN 6 - 19 mg/dL 10 Creatinine 0.5 - 1.5 mg/dL 0.70 eGFR (Creatinine) >59 mL/min/1.73m2 91 Glucose 70 - 99 mg/dL 93 Anion Gap 10 - 20 mmol/L 16 Albumin 3.9 - 4.8 g/dL 4.6 Bilirubin (Total) 0.0 - 1.2 mg/dL 0.4 Calcium 8.4 - 10.3 mg/dL 9.8 Total Protein 6.5 - 8.0 g/dL 8.0 AST (SGOT) 0 - 37 U/L 18 ALT (SGPT) (U/L) 0 - 40 U/L 11 Alk Phos 39 - 117 U/L 87 Globulin 1 - 4.8 g/dL 3.4 WBC 4.00 - 11.00 K/uL 5.77 RBC 4.00 - 5.20 M/uL 4.92 Hgb 12.0 - 16.0 g/dL 14.3 HCT 36.0 - 46.0 % 45.8 MCV 80.0 - 100.0 fL 93.1 MCH 27.0 - 31.0 pg 29.1 MCHC 32.0 - 36.0 g/dL 31.2 (L) PLT 150 - 450 K/uL 384 MPV 8.4 - 12.0 fL 11.0 RDW 11.5 - 14.5 % 16.2 (H) Diff Method Auto Neutrophils 48.0 - 76.0 % 46.3 (L) Lymphs 18.0 - 41.0 % 35.0 Monos 4.0 - 11.0 % 14.4 (H) Eos 0.0 - 5.0 % 2.3 Basos (auto) 0.0 - 1.5 % 1.7 (H) Granulocytes, immature (%) 0.0 - 0.9 % 0.3 NRBC% (auto) 0.00 /100 WBCs 0.00 Neutrophil # 1.92 - 7.60 K/uL 2.67 Lymph# 0.72 - 4.10 K/uL 2.02 Nelson# 0.16 - 1.10 K/uL 0.83 Eos# 0.00 - 0.50 K/uL 0.13 Baso# 0.00 - 0.15 K/uL 0.10 Granulocytes, immature 0.00 - 0.09 K/uL 0.02 NRBC#, auto 0.00 K/uL 0.00 (L): Data is abnormally low (H): Data is abnormally high ASSESSMENT AND PLAN: Alexandra Castellanos is a 74 y.o. female with metastatic breast cancer, maintained on monthly Faslodex along with anastrozole. Tolerating these 2 well. No signs of disease progression by history or exam or laboratory data. 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 She is on a slightly higher dose of prednisone and is now on methotrexate and has significantly more fatigue. Workup for this is underway. Not likely to be related to her malignancy or its treatment. She will receive Faslodex today and in 4 and 8 weeks with nursing only. She will continue anastrozole. In person visit in 3 months. Reevaluation then. Consideration of Faslodex then. Systemic imaging in April. She will call in the interim with any problems or concerns. I have maintained a long-term, longitudinal relationship with this patient, overseeing care of chronic conditions, including metastatic breast cancer. This care relationship has significantly influenced my decision-making and treatment plans during today's encounter. 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 Alexandra will return in 12 weeks for follow-up visit. She knows to contact me if anything should change in the interim. Stephen Nelson MD [facility] at [address] [address] documented in this encounter Plan of Treatment Upcoming Encounters Date Type Department Care Team (Late st Contact Info) Description 01/30/2025 2:40 PM EST Infusion [facility] [place] [facility] at [address] [address] Stephen Nelson MD [address] [place] [phone] 01/31/2025 11:00 AM EST Office Visit [facility] Rheumatology [address] [place] [address] [place] [address] Maria Del Rosario Graham MD [address] [place] [address], [address] [place] [address] [email or web address] 02/28/2025 9:40 AM EST Infusion [facility] at [address] [address] Stephen Nelson MD [address] [place] [id number] 03/28/2025 1:30 PM EST Appointment [facility] [address] [place] [address] Stephen Nelson MD [address] [place] [phone] 03/28/2025 2:30 PM EST Office Visit [facility] at [address] [address] Tracy Worrell FNP [address] [place] [phone] 03/28/2025 3:20 PM EST Infusion [facility] at [address] [address] Stephen Nelson MD [address] [place] [phone] 06/14/2025 1:00 PM EDT Office Visit 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 Medical Oncology 12/04/19 Karo Rondon NP [address] [place] [phone] Obstetrics and Gynecology 12/04/19 Stephen Nelson MD [address] [place] [phone] [email or web address] Primary Oncologist Medical Oncology 02/02/21 Livia Narvaez CNP [address] [place] [phone] [email or web address] Nurse Practitioner Medical Oncology 07/04/21 Blair Foreman MD [address] [place] [phone] [email or web address] Insurance Assigned Provider 06/18/23 Petty De La Rosa NP [address] [place] [address] [email or web address] Nurse Practitioner 08/02/24 documented as of this encounter Additional Source Comments The information contained in this document represents components of the legal health record. It is not the complete legal health record.[facility]
[2025-01-04 11:05] VITALS: BP 122/66; PULSE 68; TEMP 36.7; O2SAT 96; BMI 19.8
--- NOTE | 2025-01-04 11:05 | AM.OFFWIN_ITS ---
Intake Vital Signs 01/04/25 11:05 Height 5 ft 8 in Weight 130 lb BMI 19.8 BP 122/66 Blood Pressure Location Lt brachial Position Sitting Pulse 68 Pulse Source Pulse Oximeter Temp 98.1 F Temp Source Oral Pulse Oximetry (%) 96 Oxygen Delivery Method Room Air Intake Visit Reasons: R. Arm Cat Scratch Intake Note: Patient presents with c/o cat scratch on her right upper arm/shoulder from her own cat at home yesterday. Patient Tobacco Use Status: Never used Tobacco Allergies Sulfa (Sulfonamide Antibiotics) Allergy (Mild, Verified 01/04/25 11:07) Rash Medication List - Last Reconciled 01/04/25 by Efrain Gillette MD amlodipine 10 mg PO DAILY anastrozole 1 mg PO DAILY fulvestrant 500 mg IM .every month levothyroxine (Synthroid) 88 mcg PO DAILY lorazepam 0.5 mg PO DAILY PRN metoprolol tartrate 25 mg PO BID prednisone 4 mg PO rosuvastatin 5 mg PO DAILY Do you need a note to return to daycare/school/sports/work: No HPI R. Arm Cat Scratch HPI Details History of Present Illness The patient is a 74-year-old female presenting with wounds from a cat scratch. Wounds from cat scratch: - Occurred on the right arm due to a dom estic cat's jealousy after observation of another cat outside. - Timing: Incident happened indoors yest erday. - Nature of injury: Noted three superfic ial scratches from claws with some bleeding but no bites. - Management: The patient cleaned the sc ratches with an antiseptic and applied Neosporin as a topical agent. - No use of blood thinners and is allerg ic to sulfa drugs. Ear wax and tinnitus: - History of very narrow ear canals diag nosed during an earlier visit in the spring, resulting in significant wax removal. - Concerns about tinnitus and presence o f wax, which may affect hearing ability. Medical History: - Allergic to sulfa drugs. Medications: - Neosporin (topically), previously appl ied for cat scratch wound care. Problem List - Puncture Wounds from cat scratch - Ear wax and tinnitus Plan - Prescribe amoxicillin-clavulanate due to potential infection risk from cat s cratch, one tablet twice daily due to bruising depth. - Instruct to monitor for signs of infec tion, including increased swelling, redness, or pain. Antibiotics are advised regardless of current symptom severity to prevent infection spread due to immunocompromise risks associated with age. and the fact that its punture wounds - Comment on ear canals as clean and nor mal based on inspection. Advise no current intervention needed for ear wax, unless symptoms persist or worsen. - Recommend close monitoring of wounds f or any changes in condition or new symptoms warranting further examination. Review of Systems - General: No fever no chills - Neurological: No headaches no dizziness - Ear nose throat: No sore throat no hearing difficulty no ear pain - Cardiovascular: No syncope, no chest pain, no palpitations - Gastrointestinal: No nausea vomiting or diarrhea Physical Exam General: No acute distress HEENT: No acute findings, ear canals clean and normal Neck: Supple Respiratory system: Able to talk in full sentences, no audible wheeze Gastrointestinal: No pain Extremities: No new findings BELT PUNCHER: Alert awake oriented x3 motor intact Skin: Normal turgor, multiple claw clark on the right arm with bruising and Punture wounds 3 in count on right forearm and above elbow, some on right chest in back , no signs of infection [facility] Social History Patient Tobacco Use Status: Never used Tobacco Physical Exam Vital Signs: Last Vital Signs Temp 98.1 F 01/04/25 11:05 Pulse 68 01/04/25 11:05 BP 122/66 01/04/25 11:05 Pulse Ox 96 01/04/25 11:05 Oxygen Delivery Method Room Air 01/04/25 11:05 BMI result Body Mass Index 19.8 Assessment & Plan Assessment & Plan (1) Puncture wound of right upper arm: Code(s): S41.131A - Puncture wound without foreign body of right upper arm, initial encounter (2) Cat scratch: Code(s): W55.03XA - Scratched by cat, initial encounter Plan History of Present Illness The patient is a 74-year-old female presenting with wounds from a cat scratch. Wounds from cat scratch: - Occurred on the right arm due to a domestic cat's jealousy after observation of another cat outside. - Timing: Incident happened indoors yesterday. - Nature of injury: Noted three superficial scratches from claws with some bleeding but no bites. - Management: The patient cleaned the scratches with an antiseptic and applied Neosporin as a topical agent. - No use of blood thinners and is allergic to sulfa drugs. Ear wax and tinnitus: - History of very narrow ear canals diagnosed during an earlier visit in the spring, resulting in significant wax removal. - Concerns about tinnitus and presence of wax, which may affect hearing ability. Medical History: - Allergic to sulfa drugs. Medications: - Neosporin (topically), previously applied for cat scratch wound care. Problem List - Puncture Wounds from cat scratch - Ear wax and tinnitus Plan - Prescribe amoxicillin-clavulanate due to potential infection risk from cat scratch, one tablet twice daily due to bruising depth. - Instruct to monitor for signs of infection, including increased swelling, redness, or pain. Antibiotics are advised regardless of current symptom severity to prevent infection spread due to immunocompromise risks associated with age. and the fact that its punture wounds - Comment on ear canals as clean and normal based on inspection. Advise no current intervention needed for ear wax, unless symptoms persist or worsen. - Recommend close monitoring of wounds for any changes in condition or new symptoms warranting further examination. Medications: New amoxicillin-pot clavulanate 875-125 mg 1 tab PO BID 10 tabs 0RF 5 days Coding Level of Care Code Est Pt Level 3 (34199) Diagnoses Puncture wound of right upper arm S41.131A Cat scratch W55.03XA
--- OUTSIDE RECORDS SUMMARY | 2025-01-04 12:22 | XMS_ITS ---
Author Organization [facility] Address [address] [place] [address] Phone Care Team Providers Care Revenue Stamp Clerk Name Role Phone Marybeth Denton MD Unavailable [phone] Karo Rondon NP Unavailable [phone] Blair Foreman MD Primary Care Provider Stephen Nelson MD Unavailable [phone] BriceLivia DEHYDROGENATION OPERATOR HEAD Unavailable Blair Foreman MD Unavailable [phone] Petty De La Rosa CUSHION MAT MAKER Unavailable Active Problems Patient Care Coordination No te Formatting of this note migh t be different from the original. Height 174.1cm no shoes 2/1 Problem Noted Date Diagnosed Date Multiple allergies 10/17/2024 Assessment & Plan (10/17/2024 6:55 PM EDT): Currently being tested for leaves & grasses to finalize appropriate desensitization accordingly. On statin therapy 10/17/2024 Assessment & Plan (10/17/2024 6:59 PM EDT): Monitor for muscle tenderness, swelling and weakness 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, intermodal customer service, current use 10/17/2024 Assessment & Plan (10/17/2024 7:03 PM EDT): Hold methotrexate whenever running fever, feeling sick or taking antibiotics. Complete entire course of antibiotics and wait at least 48 hours after the last dose to make sure that infection does not recur before returning to its usual weekly dosing schedule. Monitor for increasing breathing difficulty, coughing, mucosal ulcerations, abdominal pain, nausea, vomiting, etc. Return for monitoring labs at least every 3 months-standing orders in [facility]. Refrain from drinking alcohol while taking methotrexate. Make sure to inform any new CAMILLE ARSHAD, CUSHION MAT MAKER about chronic therapy with methotrexate particularly in emergency situations. Hold methotrexate whenever getting vaccination for 2 weeks after vaccination to optimize vaccine benefit. Stomatitis 09/26/2024 Assessment & Plan (09/26/2024 9:31 AM EDT): Patient presents today with 3 days of blood in her stoma. On examination, the stoma appears to be irritated with mucosal friability without surrounding erythema or warmth. No gross blood coming from the internal aspect of the stoma. Low suspicion for infection at this time so no antibiotics are indicated. Discussed the case with both Leonardo Dockery PA-C and Dr. Stauffer, recommendation at this time is to initiate triamcinolone cream to the stoma itself to help with inflammation and refer to [facility] general surgery for further evaluation. Patient notes understanding, [facility] general surgery referral placed. Gastroesophageal reflux dise ase with esophagitis without hemorrhage 09/26/2024 Assessment & Plan (09/26/2024 9:32 AM EDT): She notes that for the past 2 weeks she has had reflux-like symptoms for which she was previously on pantoprazole in the past but has since discontinued that for few years. With the recent flare of reflux she has been using Pepcid and tea with positive effect, she has not had reflux symptoms within the past 2 days. Effusion of both knee joints 07/23/2024 Assessment & Plan (07/24/2024 6:35 PM EDT): Procedure: After an informed written consent, under sterile conditions using Ethyl chloride spray for local anesthesia and 3 cc 1% Lidocaine as topical anesthetic I have ASPIRATED 12 cc turbid synovial fluid that was sent for full analysis. Following aspiration I have injected 40 mg Kenalog and 1 cc 1% Lidocaine into Right knee from lateral approach uneventfully. Details of post-procedure care were explained to the patient in the office and given in writing. Provider: Maria Del Rosario Graham MD Patient: Alexandra Castellanos : 1950 Date: 07/23/2024 Procedure: After an informed written consent, under sterile conditions using Ethyl chloride spray for local anesthesia and 3 cc 1% Lidocaine as topical anesthetic I have aspirated 21 cc turbid fluid that was sent for full analysis. Following aspiration I have injected 40 mg Kenalog and 1 cc 1% Lidocaine into Left knee from lateral approach uneventfully. Details of post-procedure care were explained to the patient in the office and given in writing. Provider: Maria Del Rosario Graham MD Patient: Alexandra Castellanos : 1950 Date: 07/23/2024 Lymphedema of left arm 04/18/2024 Assessment & Plan (04/18/2024 3:13 PM EST): Continue regular exercise & compression sleeve Age-related osteoporosis wit hout current pathological fracture 11/30/2023 Assessment & Plan (10/17/2024 6:58 PM EDT): She was taking Blue Bonnet bone broth daily until recently. She participates in healthy bones classes twice a week for 60 minutes each time and weekly line dancing 60-90 minutes that is helpful but not sufficient to prevent further weakening and certainly not to restore her bones density. She does not feel comfortable taking any prescription bone preserving therapy at this time and is aware about increased risk of spontaneous bony fracture at this stage. She follows diligently fall and fracture prevention strategies. Assessment & Plan (04/18/2024 2:50 PM EST): She is taking Blue Bonnet bone broth daily in addition to participating in healthy bones classes twice a week for 60 minutes each time and weekly line dancing 60- 90 minutes that is helpful not sufficient to restore her bones density. She does not feel comfortable taking any prescription bone preserving therapy at this time and is aware about increased risk of spontaneous bony fracture at this stage. She follows diligently fall and fracture prevention strategies. Assessment & Plan (12/11/2023 6:02 PM EDT): She is taking Blue Bonnet bone broth daily in addition to participating in healthy bones classes twice a week for 60 minutes each time and weekly line dancing 60- 90 minutes that is helpful not sufficient to restore her bones density. She does not feel comfortable taking any prescription bone preserving therapy at this time and is aware about increased risk of spontaneous bony fracture at this stage. She follows diligently fall and fracture prevention strategies. Effusion of left knee 11/04/2023 Assessment & Plan (11/04/2023 11:46 AM EDT): Procedure: After an informed written consent, under sterile conditions using Ethyl chloride spray for local anesthesia and 3 cc 1% Lidocaine as topical anesthetic I have aspirated 51 cc of yellow turbid fluid from LEFT KNEE .Synovial fluid was sent for full analysis. Following aspiration I have injected 40 mg Kenalog and 2 cc 1% Lidocaine into Left knee from medial approach uneventfully. Details of post-procedure care were explained to the patient in the office and given in writing. Provider: Maria Del Rosario Graham MD Patient: Alexandra Castellanos : 1950 Date: 11/04/2023 Tendinopathy of right gluteal region 12/03/2022 Assessment & Plan (12/03/2022 8:54 AM EDT): Most likely this is injury to the right gluteal region from an injection. Since the prednisone seems to be working well we can taper slowly over the next 20 days. Start 20 mg daily for 10 days then down to 10 mg for 10 days and then 5 mg for 10 days and then back down to the baseline of 3 mg/day which she was on for the stills disease. Tenosynovitis of tibialis posterior tendon 05/24 Assessment & Plan (06/07/2022 12:09 PM EDT): Continue gentle ROM, stretching after warm pack as educated by PT. Well fitting, supportive shoes and topical cream versus patch may provide additional benefit. Wrist arthritis 06/15/2021 Assessment & Plan (06/20/2021 7:29 PM EDT): Procedure: After an informed oral consent, under sterile conditions using Ethyl chloride spray for local anesthesia I have injected 30 mg DepoMedrol and 1.5 cc 1% Lidocaine into Right wrist from medial & lateral approach uneventfully. Details of post-procedure care were explained to the patient in the office and given in writing. Provider: Maria Del Rosario Graham MD Patient: Alexandra Castellanos : 1950 Date: 06/15/2021 I have asked Alexandra to decrease prednisone to 5 mg every morning with breakfast x 3 days and down to 2 mg afterwards. Advice given about COVID-19 virus infection 11/2021 Assessment & Plan (02/21/2022 10:41 AM EST): I reviewed with her benefits of getting divalent COVID-19 vaccine and encouraged her to get it in the nearest future. In case she decides against vaccination and contracts COVID-19 infection I have asked her to call within the first 48 hours to consider antiviral therapy with Paxlovid. Assessment & Plan (05/26/2021 9:37 AM EDT): I have reviewed with her the benefits of COVID-19 vaccination in her particular case that in my opinion outweigh possible rare and minor side effects. I have encouraged her to discuss the topic with her PCP and oncologist who know her better and may have additional information to help her make educated decision. In case she would develop COVID-19 infection I have instructed her to call within the first 24-48 hours to receive monoclonal antibody therapy. Skin rash 02/16/2021 Assessment & Plan (12/22/2023 4:06 PM EDT): She developed a diffuse itchy rash after contrast from CT. I added contrast as an allergy. It has faded and lessened some since onset. No oral or respiratory symptoms. Advised her to flush, and hydrate well. She can try OTC benadryl 25 mg po , or OTC loratadine (she states her has some at home) If any oral symptoms or wheezing begins she is to call 911. If she is not getting better, she can call us back. I suspect this will continue to lighten as it clears her system Assessment & Plan (03/12/2021 3:17 PM EST): Unclear etiology-continue close follow-up with treating oncologist and consider dermatology consult if not better or worse. shelter current use of systemic steroids 01/12 Assessment & Plan (10/17/2024 1:36 PM EDT): Continue daily calcium and vitamin D supplementation. Regular weightbearing exercises. Fall prevention strategies. Monitor for multiple side effects including but not limited to increased risk of hips, knees, jaw osteonecrosis, mood swings, increased intraocular and systemic pressure, diabetes, osteoporosis, fluid retention, increased appetite, risk of infection, bruising, hair thinning etc. Assessment & Plan (07/24/2024 6:35 PM EDT): Continue daily calcium and vitamin D supplementation. Regular weightbearing exercises. Fall prevention strategies. Monitor for multiple side effects including but not limited to increased risk of hips, knees, jaw osteonecrosis, mood swings, increased intraocular and systemic pressure, diabetes, osteoporosis, fluid retention, increased appetite, risk of infection, bruising, hair thinning etc. Assessment & Plan (04/18/2024 2:50 PM EST): Gently taper as tolerated. Daily calcium and vitamin D supplementation. Regular weightbearing exercises. Fall prevention strategies. Monitor for multiple side effects including but not limited to increased risk of hips, knees, jaw osteonecrosis, mood swings, increased intraocular and systemic pressure, diabetes, osteoporosis, fluid retention, increased appetite, risk of infection, bruising, hair thinning etc. Assessment & Plan (11/30/2023 9:47 AM EDT): Gently taper as tolerated. Daily calcium and vitamin D supplementation. Regular weightbearing exercises. Fall prevention strategies. Monitor for multiple side effects including but not limited to increased risk of hips, knees, jaw osteonecrosis, mood swings, increased intraocular and systemic pressure, diabetes, osteoporosis, fluid retention, increased appetite, risk of infection, bruising, hair thinning etc. Assessment & Plan (05/30/2023 9:46 AM EDT): Gently taper as tolerated. Daily calcium and vitamin D supplementation. Regular weightbearing exercises. Fall prevention strategies. Monitor for multiple side effects including but not limited to increased risk of hips, knees, jaw osteonecrosis, mood swings, increased intraocular and systemic pressure, diabetes, osteoporosis, fluid retention, increased appetite, risk of infection, bruising, hair thinning etc. Assessment & Plan (11/24/2022 10:09 AM EDT): Gently taper as tolerated. Daily calcium and vitamin D supplementation. Regular weightbearing exercises. Fall prevention strategies. Monitor for multiple side effects including but not limited to increased risk of hips, knees, jaw osteonecrosis, mood swings, increased intraocular and systemic pressure, diabetes, osteoporosis, fluid retention, increased appetite, risk of infection, bruising, hair thinning etc. Assessment & Plan (05/24/2022 10:44 AM EDT): Gently taper as tolerated. Daily calcium and vitamin D supplementation. Regular weightbearing exercises. Fall prevention strategies. Monitor for multiple side effects including but not limited to increased risk of hips, knees, jaw osteonecrosis, mood swings, increased intraocular and systemic pressure, diabetes, osteoporosis, fluid retention, increased appetite, risk of infection, bruising, hair thinning etc. Assessment & Plan (01/22/2022 2:30 PM EST): Gently taper as tolerated. Daily calcium and vitamin D supplementation. Regular weightbearing exercises. Fall prevention strategies. Monitor for multiple side effects including but not limited to increased risk of hips, knees, jaw osteonecrosis, mood swings, increased intraocular and systemic pressure, diabetes, osteoporosis, fluid retention, increased appetite, risk of infection, bruising, hair thinning etc. Assessment & Plan (08/20/2021 11:50 AM EDT): Gently taper as tolerated. Daily calcium and vitamin D supplementation. Regular weightbearing exercises. Fall prevention strategies. Monitor for multiple side effects including but not limited to increased risk of hips, knees, jaw osteonecrosis, mood swings, increased intraocular and systemic pressure, diabetes, osteoporosis, fluid retention, increased appetite, risk of infection, bruising, hair thinning etc. Assessment & Plan (06/20/2021 7:38 PM EDT): Gently taper as tolerated. Daily calcium and vitamin D supplementation. Regular weightbearing exercises. Fall prevention strategies. Monitor for multiple side effects including but not limited to increased risk of hips, knees, jaw osteonecrosis, mood swings, increased intraocular and systemic pressure, diabetes, osteoporosis, fluid retention, increased appetite, risk of infection, bruising, hair thinning etc. Assessment & Plan (05/20/2021 12:13 PM EST): Gently taper as tolerated stable and ready. Daily calcium and vitamin D supplementation. Regular weightbearing exercises. Fall prevention strategies. Monitor for multiple side effects including but not limited to increased risk of hips, knees and jaw osteonecrosis, mood swings, increased intraocular and systemic pressure, diabetes, osteoporosis, fluid retention, increased appetite, risk of infection, bruising, hair thinning etc. Assessment & Plan (03/12/2021 3:17 PM EST): Gently taper as tolerated stable and ready. Daily calcium and vitamin D supplementation. Regular weightbearing exercises. Fall prevention strategies. Monitor for multiple side effects including but not limited to increased risk of hips, knees and jaw osteonecrosis, mood swings, increased intraocular and systemic pressure, diabetes, osteoporosis, fluid retention, increased appetite, risk of infection, bruising, hair thinning etc. Assessment & Plan (01/25/2021 10:57 AM EST): Gently taper as tolerated stable and ready. Daily calcium and vitamin D supplementation. Regular weightbearing exercises. Fall prevention strategies. Monitor for multiple side effects including but not limited to increased risk of hips, knees and jaw osteonecrosis, mood swings, increased intraocular and systemic pressure, diabetes, osteoporosis, fluid retention, increased appetite, risk of infection, bruising, hair thinning etc. Breast cancer 01/12/2021 Assessment & Plan (12/22/2023 4:10 PM EDT): She reports today she gets hives that come and go with her Faslodex therapy at the cancer center. I encouraged her to call Dr. Nelson and discuss this with them as this is a sing of allergic reaction. She verbalized understanding and would contact them Assessment & Plan (05/26/2021 9:32 AM EDT): Continue close follow-up with treating oncologist as scheduled. Importance of regular daily weightbearing exercises such as walking preferably 45-60 minutes to reduce the risk of osteoporosis strongly encouraged. I have reviewed with her again the fact that long-term prednisone therapy in her postmenopausal state and presence of breast cancer with bony metastases requires additional bone preserving therapy. Assessment & Plan (03/12/2021 3:12 PM EST): Continue close follow-up with treating oncologist as scheduled. Importance of regular daily weightbearing exercises such as walking preferably 45-60 minutes to reduce the risk of osteoporosis strongly encouraged. I spent several minutes reviewing with her and her the fact that long- term prednisone therapy in her postmenopausal state and presence of breast cancer with bony metastases requires additional bone preserving therapy. Assessment & Plan (01/25/2021 11:04 AM EST): Continue close follow-up with treating oncologist as scheduled. Importance of regular daily weightbearing exercises such as walking preferably 45-60 minutes to reduce the risk of osteoporosis strongly encouraged. I spent several minutes reviewing with her and her the fact that long- term prednisone therapy in her postmenopausal state and presence of breast cancer with bony metastases requires additional bone preserving therapy. Acute superficial gastritis without hemorrhage 0 11/10/2020 Assessment & Plan (11/10/2020 1:14 PM EDT): Patient is having epigastric pain and she has some tenderness without rebound there. A glucocorticoid induced gastritis is possible. She does not wish to take the pantoprazole. I prescribed sucralfate which he may uses 1 g 3 times daily. She will keep well-hydrated. We will be checking H. pylori and C. difficile. I will get back to her by phone call. All of her questions were answered. Lobular carcinoma of right breast, stage 4 07/31 Assessment & Plan (10/17/2024 6:55 PM EDT): Continue close follow-up with treating oncologist as scheduled. Importance of regular daily weightbearing exercises such as walking preferably 45-60 minutes to reduce the risk of osteoporosis strongly encouraged. I have reviewed with her again the fact that long-term prednisone therapy in her postmenopausal state and presence of breast cancer with bony metastases requires additional bone preserving therapy. She remains hesitant. Assessment & Plan (11/29/2022 10:03 AM EDT): Continue close follow-up with treating oncologist as scheduled. Importance of regular daily weightbearing exercises such as walking preferably 45-60 minutes to reduce the risk of osteoporosis strongly encouraged. I have reviewed with her again the fact that long-term prednisone therapy in her postmenopausal state and presence of breast cancer with bony metastases requires additional bone preserving therapy. Assessment & Plan (05/24/2022 10:44 AM EDT): Continue close follow-up with treating oncologist as scheduled. Importance of regular daily weightbearing exercises such as walking preferably 45-60 minutes to reduce the risk of osteoporosis strongly encouraged. I have reviewed with her again the fact that long-term prednisone therapy in her postmenopausal state and presence of breast cancer with bony metastases requires additional bone preserving therapy. Assessment & Plan (01/22/2022 2:30 PM EST): Continue close follow-up with treating oncologist as scheduled. Importance of regular daily weightbearing exercises such as walking preferably 45-60 minutes to reduce the risk of osteoporosis strongly encouraged. I have reviewed with her again the fact that long-term prednisone therapy in her postmenopausal state and presence of breast cancer with bony metastases requires additional bone preserving therapy. Assessment & Plan (08/20/2021 11:49 AM EDT): Continue close follow-up with treating oncologist as scheduled. Importance of regular daily weightbearing exercises such as walking preferably 45-60 minutes to reduce the risk of osteoporosis strongly encouraged. I have reviewed with her again the fact that long-term prednisone therapy in her postmenopausal state and presence of breast cancer with bony metastases requires additional bone preserving therapy. Rotator cuff impingement syndrome of left should er 06/25/2020 Assessment & Plan (06/25/2020 3:14 PM EDT): Reviewed MRI indicating glenohumeral and acromioclavicular osteoarthritis but no tears of the supraspinatus tendon. She likely has acromioclavicular impingement of the supraspinatus tendon will be treated with pendulum and wall walking motion exercises, contrast baths, and instillation of corticosteroid today. Transient synovitis of right wrist 06/18/2020 Assessment & Plan (06/18/2020 10:44 AM EDT): Acute and sustained flare will be treated by a loosely applied wrist brace, evaluation by occupational therapy, and intra-articular steroids today. Osteoarthritis of carpometac arpal (CMC) joints of both thumbs 06/18/2020 Assessment & Plan (06/18/2020 10:44 AM EDT): Intra-articular steroids will be administered into both first carpometacarpal joints today. Adult Still's disease 06/02/2020 Assessment & Plan (10/17/2024 6:53 PM EDT): Due to markedly increased ferritin, polyarticular synovitis including right wrist and both knees despite elevated daily prednisone dose I have offered Alexandra bilateral knee aspiration and intra-articular long-acting steroid injection in addition to further increase of daily prednisone dose to 30 mg until Tuesday-07/30/2024 when I asked her to call back and report response. New set of lab work requested on Tuesday-08/03/2024 (orders in epic for every 2 weeks checkup if needed x 6). She knows to call if problems or questions otherwise return in ~ 3 months She completed 3 daily IV 80 mg Solu-Medrol doses on 08/15/2024-08/17/2024 followed by oral prednisone 30 mg gradually tapered to current dose of 4 mg daily along with addition of weekly oral methotrexate 10 mg and folic acid 2 mg. New set of ferritin and iron studies requested today and if stable/normal may consider gentle further prednisone taper by 1 mg every 4-6 weeks as tolerated. According to my retired colleague's office note from 11/10/2020 she has presumed adult Still's disease that was clinically stable at that time. It is very difficult to differentiate how much of the inflammation is coming from her underlying systemic rheumatic disease versus severe gradually progressive neoplastic process. Provided she has no worsening in her clinical status we carefully restarted tapering prednisone by 0.5 mg every 4-6 weeks as tolerated. At the time of decreasing prednisone from 3 mg daily to 2 mg daily in late May 2023 she developed more stiffness and swelling within the left knee that culminated in early to mid October 2023 and prompted visit for I have explained to her benefits of vaccination against yearly influenza and newest COVID-19 vaccine booster dose but she was not convinced about benefiting without possible side effects. I have explained to her that at her age > 65, with history of cancer, status post chemotherapy, on chronic systemic steroids, currently on weekly methotrexate and IV monthly Faslodex she is at an increased risk for angelic any infections and suffered from more severe case and complications including hospitalization, requiring intubation etc. I have asked her to discuss it with other colleagues physicians and offered her second opinion consultation with my [facility] colleagues regarding that issue Call if problems or questions in the interim. Assessment & Plan (07/24/2024 6:33 PM EDT): Due to markedly increased ferritin, polyarticular synovitis including right wrist and both knees despite elevated daily prednisone dose I have offered Alexandra bilateral knee aspiration and intra-articular long-acting steroid injection in addition to further increase of daily prednisone dose to 30 mg until Tuesday-07/30/2024 when I asked her to call back and report response. New set of lab work requested on Tuesday-08/03/2024 (orders in epic for every 2 weeks checkup if needed x 6). 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 It is very difficult to differentiate how much of the inflammation is coming from her underlying systemic rheumatic disease versus severe gradually progressive neoplastic process. Provided she has no worsening in her clinical status we carefully restarted tapering prednisone by 0.5 mg every 4-6 weeks as tolerated. At the time of decreasing prednisone from 3 mg daily to 2 mg daily in May 2023 she developed more stiffness and swelling within the left knee that culminated in early to October 2023 and prompted visit for I have explained to her benefits of vaccination against yearly influenza and newest COVID-19 vaccine booster dose but she was not convinced about benefiting without possible side effects. Call if problems or questions in the interim. 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 It is very difficult to differentiate how much of the inflammation is coming from her underlying systemic rheumatic disease versus severe gradually progressive neoplastic process. Provided she has no worsening in her clinical status we carefully restarted tapering prednisone by 0.5 mg every 4-6 weeks as tolerated. At the time of decreasing prednisone from 3 mg daily to 2 mg daily in late May 2023 she developed more stiffness and swelling within the left knee that culminated in early to mid October 2023 and prompted visit for direct aspiration and intra- articular steroid injection on 11/04/2023 that helped tremendously. Most recent ferritin checked on 10/26/2023 was normal but I requested another checkup today along with ESR and CRP. Provided no worsening on the labs and in clinical status may not need to increase prednisone any further except for returning to 3 mg daily. Provided she has no deterioration I am asking her to return in 4 months with prior monitoring labs-standing orders in [facility]. I have explained to her benefits of vaccination against yearly influenza and newest COVID-19 vaccine booster dose but she was not convinced about benefiting without possible side effects. Call if problems or questions in the interim. 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 It is very difficult to differentiate how much of the inflammation is coming from her underlying systemic rheumatic disease versus severe gradually progressive neoplastic process. Provided she has no worsening in her clinical status we carefully restarted tapering prednisone by 0.5 mg every 4-6 weeks as tolerated. At the time of decreasing prednisone from 3 mg daily to 2 mg daily in May 2023 she developed more stiffness and swelling within the left knee that culminated in early to mid October 2023 and prompted visit for direct aspiration and intra- articular steroid injection on 11/04/2023 that helped tremendously. Most recent ferritin checked on 10/26/2023 was normal but I requested another checkup today along with ESR and CRP. Provided no worsening on the labs and in clinical status may not need to increase prednisone any further except for returning to 3 mg daily. Provided she has no deterioration I am asking her to return in 4 months with prior monitoring labs-standing orders in [facility]. I have explained to her benefits of vaccination against yearly influenza and newest COVID-19 vaccine booster dose but she was not convinced about benefiting without possible side effects. Call if problems or questions in the interim. 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 It is very difficult to differentiate how much of the inflammation is coming from her underlying systemic rheumatic disease versus severe gradually progressive neoplastic process. Provided she has no worsening in her clinical status we carefully restarted tapering prednisone by 0.5 mg every 4-6 weeks as tolerated. At the time of decreasing prednisone from 3 mg daily to 2 mg daily in late May 2023 she developed more stiffness and swelling within the left knee that culminated in early to mid October 2023 and prompted today's visit for direct aspiration and intra-articular steroid injection. Most recent ferritin checked on 10/26/2023 was normal but I requested another checkup today along with ESR and CRP. Provided no worsening on the labs and in clinical status may not need to increase prednisone any further except for returning to 3 mg daily. I plan to see her on 11/30/2023 and request monitoring labs prior to it-standing orders in [facility]. Call if problems or questions in the interim. 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 It is very difficult to differentiate how much of the inflammation is coming from her underlying systemic rheumatic disease versus severe gradually progressive neoplastic process. Provided she has no worsening in her clinical status we can carefully restart tapering prednisone by 0.5 mg every 4-6 weeks as tolerated. I plan to see her in 6 mths and request monitoring labs prior to it-standing orders in epic. Call if problems or questions in the interim. 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 It is very difficult to differentiate how much of the inflammation is coming from her underlying systemic rheumatic disease versus severe gradually progressive neoplastic process. Provided she has no worsening in her clinical status we can carefully restart tapering prednisone by 0.5 mg every 4-6 weeks as tolerated. I plan to see her in 6 mths and request monitoring labs prior to it-standing orders in epic. Call if problems or questions in the interim. 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 It is very difficult to differentiate how much of the inflammation is coming from her underlying systemic rheumatic disease versus severe gradually progressive neoplastic process. Provided she has no worsening in her clinical status we can carefully restart tapering prednisone by 0.5 mg every couple of weeks as tolerated. I plan to see her in 4 mths and request monitoring labs prior to it-standing orders in epic. Call if problems or questions in the interim. 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 It is very difficult to differentiate how much of the inflammation is coming from her underlying systemic rheumatic disease versus severe gradually progressive neoplastic process. Provided she has no worsening in her clinical status we can carefully restart tapering prednisone by 0.5 mg every couple of weeks as tolerated. I plan to see her in 4 mths and request monitoring labs prior to it-standing orders in epic. Call if problems or questions in the interim. 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 It is very difficult to differentiate how much of the inflammation is coming from her underlying systemic rheumatic disease versus severe gradually progressive neoplastic process. Provided she has seen in her clinical status we can restart tapering by 0.5 mg every couple of weeks as tolerated. I plan to see her in 3 mths with request for monitoring labs prior to it- standing orders in [facility]. 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 It is very difficult to differentiate how much of the inflammation is coming from her underlying systemic rheumatic disease versus severe gradually progressive neoplastic process. Provided she has seen in her clinical status we can restart tapering by 0.5 mg every couple of weeks as tolerated. I plan to see her in 3 mths with request for monitoring labs prior to it- standing orders in [facility]. 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 Based on the most recent lab work from 02/08/2021 there is no values for ferritin, ESR and CRP level that may help assessing activity of her disease. It is very difficult to differentiate how much of the inflammation is coming from her underlying systemic rheumatic disease versus severe gradually progressive neoplastic process. Provided she has improvement in skin appearance we can restart tapering by 1 mg every couple of weeks as tolerated. 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 It is very difficult to differentiate how much of the inflammation is coming from her underlying systemic rheumatic disease versus severe gradually progressive neoplastic process. At this point I suggested her to continue current dose of prednisone 7.5 mg for a week and update me on her progress. Provided she has improvement in skin appearance we can restart tapering by 1 mg every couple of weeks as tolerated. I plan to see her in 6 weeks with request for monitoring labs prior to it Assessment & Plan (11/10/2020 1:13 PM EDT): The patient has a presumptive diagnosis of adult onset stills disease and has responded nicely to low-dose prednisone which we are currently tapering. Giving her 1 mg tablets of prednisone she will try to taper 1 mg off her afternoon dose every 2 weeks. I would then like her to be seen by a manager of clinical within 8 to 9 weeks. Previous lab work was reviewed and looks within normal limits. She has had a bone densitometry done about 2 years ago at another facility. As I explained to her today, there could have been major downward changes in her bone densitometry since being on prednisone and she would benefit from at least considering pharmacologic intervention for bone thinning. I advised her to speak to her primary care physician about ordering a new bone densitometry which I then can review and give her my opinion. We talked about zoledronic acid as a treatment for bone thinning as well as for metastatic breast cancer. She had several questions about it which I answered. This was a recommended treatment from her oncologist. I did mention that there are other pharmacologic interventions for bone thinning which we may consider as well. Hospital Outpatient Visit on 09/23/2020 Component Date Value Ref Range Status HEMOGLOBIN A1C 09/23/2020 5.9* 4.3 - 5.8 % Final SODIUM 09/23/2020 138 133 - 146 mmol/L Final CHLORIDE 09/23/2020 100 96 - 108 mmol/L Final POTASSIUM 09/23/2020 4.2 3.3 - 5.1 mmol/L Final CO2 09/23/2020 27 21 - 35 mmol/L Final BUN 09/23/2020 12 6 - 19 mg/dL Final CREATININE 09/23/2020 0.70 0.5 - 1.5 mg/dL Final GLUCOSE 09/23/2020 160* 70 - 99 mg/dL Final CALCIUM 09/23/2020 9.7 8.4 - 10.3 mg/dL Final EGFR 09/23/2020 88 >59 mL/min/1.73m2 Final Estimated glomerular filtration rate calculated using the CKD-EPI equation. ANION GAP 09/23/2020 15 10 - 20 mmol/L Final WBC 09/23/2020 7.90 4.00 - 11.00 K/uL Final RBC 09/23/2020 5.06 3.72 - 5.30 M/uL Final HGB 09/23/2020 13.4 11.4 - 15.9 g/dL Final HCT 09/23/2020 43.6 34.2 - 46.8 % Final PLT 09/23/2020 398 140 - 430 K/uL Final MCV 09/23/2020 86.2 78.0 - 97.0 fL Final MCH 09/23/2020 26.5 25.0 - 33.0 pg Final MCHC 09/23/2020 30.7* 32.0 - 36.0 g/dL Final RDW 09/23/2020 19.9* 11.0 - 16.0 % Final MPV 09/23/2020 11.5 8.4 - 12.8 fl Final NRBC 09/23/2020 0.00 0 /100 WBCs Final ABSOLUTE NRBC 09/23/2020 0.00 0 K/uL Final DIFF METHOD 09/23/2020 Auto Final NEUTS 09/23/2020 79.0* 43.0 - 75.0 % Final LYMPHS 09/23/2020 11.4* 18.2 - 47.4 % Final MONOS 09/23/2020 7.6 4.00 - 11.00 % Final EOS 09/23/2020 0.3 0.0 - 8.0 % Final BASOS 09/23/2020 0.9 0.0 - 2.0 % Final Granulocytes, immature (%) 09/23/2020 0.8 0.0 - 0.9 % Final ABSOLUTE NEUTS 09/23/2020 6.25 1.80 - 7.70 K/uL Final ABSOLUTE LYMPHS 09/23/2020 0.90* 1.00 - 3.10 K/uL Final ABSOLUTE MONOS 09/23/2020 0.60 0.20 - 0.80 K/uL Final ABSOLUTE EOS 09/23/2020 0.02 0.00 - 0.80 K/uL Final ABSOLUTE BASOS 09/23/2020 0.07 0.00 - 0.09 K/uL Final Granulocytes, immature 09/23/2020 0.06* 0.00 - 0.05 K/uL Final IRON 09/23/2020 52 30 - 160 ug/dL Final IRON BINDING CAPACITY 09/23/2020 408 228 - 428 ug/dL Final TRANSFERRIN SATURAT. 09/23/2020 13* 15 - 50 % Final FERRITIN 09/23/2020 215* 13 - 150 ug/L Final Assessment & Plan (09/24/2020 9:32 AM EDT): Patient with adult onset stills disease on tapering dose of prednisone doing reasonably well. Long-term potential risks of prednisone were discussed. She will decrease prednisone to 5 mg in the morning and 7.5 mg in the afternoon for 2 weeks then if no flareups with fever chills joint pain or swelling then decrease again to 5 mg twice daily. Lab work was reviewed. Reassured her that elevated blood sugar was likely postprandial as her hemoglobin A1c was 5.9. Otherwise her acute phase reactants are not elevated. 50% of this 31-minute visit was spent in [id number] conversation with the patient and her present. Coordination was made between my care and that of her primary care physician. Hospital Outpatient Visit on 09/23/2020 Component Date Value Ref Range Status HEMOGLOBIN A1C 09/23/2020 5.9* 4.3 - 5.8 % Final SODIUM 09/23/2020 138 133 - 146 mmol/L Final CHLORIDE 09/23/2020 100 96 - 108 mmol/L Final POTASSIUM 09/23/2020 4.2 3.3 - 5.1 mmol/L Final CO2 09/23/2020 27 21 - 35 mmol/L Final BUN 09/23/2020 12 6 - 19 mg/dL Final CREATININE 09/23/2020 0.70 0.5 - 1.5 mg/dL Final GLUCOSE 09/23/2020 160* 70 - 99 mg/dL Final CALCIUM 09/23/2020 9.7 8.4 - 10.3 mg/dL Final EGFR 09/23/2020 88 >59 mL/min/1.73m2 Final Estimated glomerular filtration rate calculated using the CKD-EPI equation. ANION GAP 09/23/2020 15 10 - 20 mmol/L Final WBC 09/23/2020 7.90 4.00 - 11.00 K/uL Final RBC 09/23/2020 5.06 3.72 - 5.30 M/uL Final HGB 09/23/2020 13.4 11.4 - 15.9 g/dL Final HCT 09/23/2020 43.6 34.2 - 46.8 % Final PLT 09/23/2020 398 140 - 430 K/uL Final MCV 09/23/2020 86.2 78.0 - 97.0 fL Final MCH 09/23/2020 26.5 25.0 - 33.0 pg Final MCHC 09/23/2020 30.7* 32.0 - 36.0 g/dL Final RDW 09/23/2020 19.9* 11.0 - 16.0 % Final MPV 09/23/2020 11.5 8.4 - 12.8 fl Final NRBC 09/23/2020 0.00 0 /100 WBCs Final ABSOLUTE NRBC 09/23/2020 0.00 0 K/uL Final DIFF METHOD 09/23/2020 Auto Final NEUTS 09/23/2020 79.0* 43.0 - 75.0 % Final LYMPHS 09/23/2020 11.4* 18.2 - 47.4 % Final MONOS 09/23/2020 7.6 4.00 - 11.00 % Final EOS 09/23/2020 0.3 0.0 - 8.0 % Final BASOS 09/23/2020 0.9 0.0 - 2.0 % Final Granulocytes, immature (%) 09/23/2020 0.8 0.0 - 0.9 % Final ABSOLUTE NEUTS 09/23/2020 6.25 1.80 - 7.70 K/uL Final ABSOLUTE LYMPHS 09/23/2020 0.90* 1.00 - 3.10 K/uL Final ABSOLUTE MONOS 09/23/2020 0.60 0.20 - 0.80 K/uL Final ABSOLUTE EOS 09/23/2020 0.02 0.00 - 0.80 K/uL Final ABSOLUTE BASOS 09/23/2020 0.07 0.00 - 0.09 K/uL Final Granulocytes, immature 09/23/2020 0.06* 0.00 - 0.05 K/uL Final IRON 09/23/2020 52 30 - 160 ug/dL Final IRON BINDING CAPACITY 09/23/2020 408 228 - 428 ug/dL Final TRANSFERRIN SATURAT. 09/23/2020 13* 15 - 50 % Final FERRITIN 09/23/2020 215* 13 - 150 ug/L Final Hospital Outpatient Visit on 08/04/2020 Component Date Value Ref Range Status TSH 08/04/2020 3.92 0.27 - 4.20 uIU/mL Final FERRITIN 08/04/2020 1,958* 13 - 150 ug/L Final C REACTIVE PROTEIN 08/04/2020 9.2* 0.0 - 4.0 mg/L Final ESR 08/04/2020 55* 0 - 30 mm/h Final SODIUM 08/04/2020 137 133 - 146 mmol/L Final POTASSIUM 08/04/2020 4.2 3.3 - 5.1 mmol/L Final CHLORIDE 08/04/2020 99 96 - 108 mmol/L Final CO2 08/04/2020 27 21 - 35 mmol/L Final BUN 08/04/2020 12 6 - 19 mg/dL Final CREATININE 08/04/2020 0.70 0.5 - 1.5 mg/dL Final GLUCOSE 08/04/2020 128* 70 - 99 mg/dL Final ALBUMIN 08/04/2020 3.8* 3.9 - 4.8 g/dL Final TOTAL PROTEIN 08/04/2020 8.3* 6.5 - 8.0 g/dL Final CALCIUM 08/04/2020 9.6 8.4 - 10.3 mg/dL Final ALKALINE PHOSPHATASE 08/04/2020 111 39 - 117 U/L Final TOTAL BILIRUBIN 08/04/2020 0.2 0.0 - 1.2 mg/dL Final AST 08/04/2020 35 0 - 37 U/L Final ALT 08/04/2020 18 0 - 40 U/L Final GLOBULIN 08/04/2020 4.5 1 - 4.8 g/dL Final EGFR 08/04/2020 88 >59 mL/min/1.73m2 Final Estimated glomerular filtration rate calculated using the CKD-EPI equation. ANION GAP 08/04/2020 15 10 - 20 mmol/L Final WBC 08/04/2020 14.82* 4.00 - 11.00 K/uL Final RBC 08/04/2020 4.56 3.72 - 5.30 M/uL Final HGB 08/04/2020 12.2 11.4 - 15.9 g/dL Final HCT 08/04/2020 39.7 34.2 - 46.8 % Final PLT 08/04/2020 474* 140 - 430 K/uL Final MCV 08/04/2020 87.1 78.0 - 97.0 fL Final MCH 08/04/2020 26.8 25.0 - 33.0 pg Final MCHC 08/04/2020 30.7* 32.0 - 36.0 g/dL Final RDW 08/04/2020 16.2* 11.0 - 16.0 % Final MPV 08/04/2020 10.9 8.4 - 12.8 fl Final NRBC 08/04/2020 0.00 0 /100 WBCs Final ABSOLUTE NRBC 08/04/2020 0.00 0 K/uL Final DIFF METHOD 08/04/2020 Auto Final NEUTS 08/04/2020 83.2* 43.0 - 75.0 % Final LYMPHS 08/04/2020 5.3* 18.2 - 47.4 % Final MONOS 08/04/2020 7.7 4.00 - 11.00 % Final EOS 08/04/2020 1.8 0.0 - 8.0 % Final BASOS 08/04/2020 0.9 0.0 - 2.0 % Final Granulocytes, immature (%) 08/04/2020 1.1* 0.0 - 0.9 % Final ABSOLUTE NEUTS 08/04/2020 12.33* 1.80 - 7.70 K/uL Final ABSOLUTE LYMPHS 08/04/2020 0.78* 1.00 - 3.10 K/uL Final ABSOLUTE MONOS 08/04/2020 1.14* 0.20 - 0.80 K/uL Final ABSOLUTE EOS 08/04/2020 0.27 0.00 - 0.80 K/uL Final ABSOLUTE BASOS 08/04/2020 0.14* 0.00 - 0.09 K/uL Final Granulocytes, immature 08/04/2020 0.16* 0.00 - 0.05 K/uL Final HCV 08/04/2020 NON-REACTIVE NON-REACTIVE Final Hospital Outpatient Visit on 07/22/2020 Component Date Value Ref Range Status COVID Testing Status 07/22/2020 Specimen received in analyzing lab. Results should be available within 24 to 48 hrs. Final Symptomatic? 07/22/2020 NO Final Specimen Source 07/22/2020 AN SWAB Final SARS-CoV 2 (COVID-19) PCR 07/22/2020 NEGATIVE Negative Final Comment: (NOTE) 2019-novel Coronavirus (2019-nCoV) not detected by the qRT-PCR assay. Consider testing for other respiratory viruses or re-collecting for 2019-nCoV testing. Note: Optimum timing for peak viral levels during infections caused by 2019-nCoV have not been determined. Collection of multiple specimens from the same patient may be necessary to detect the virus. Methods and Limitations: This Laboratory Developed Test is a high-throughput version of the CDC 2019-nCoV Realtime RT-PCR test and has been validated in accordance with the guidance issued by the [employer] (May) and the FDA (May 12, 2019). This test has not been FDA cleared or approved but is being run under the FDAs Emergency Use Authorization (EUA) mechanism. This test was validated for dry nasal swabs. Method: RNA is isolated from respiratory specimens using [id number]-96 Viral RNA Isolation Kits ([employer]); RNA is reverse transcribed to cDNA, and subsequently ampli fied in a Real-Time PCR Instrument ([employer] [id number]). This system provides qualitative detection of nucleic acid from SARS-CoV-2. For more detailed information on the test methods and limitations as well as for Fact Sheets for both Patients and Healthcare providers see https://broad.io/cpmbv03oxmk-ajdbzaxcag2. Positive results are indicative of active infection with SARS-CoV-2 but do not rule out bacterial infection or co-infection with other viruses. The agent detected may not be the definite cause of disease. Negative results do not preclude SARS-CoV-2 infection and should not be used as the sole basis for patient management decisions. False negative results may occur if amplification inhibitors are present in the specimen or if inadequate numbers of organisms are present in the specimen due to improper collection, transportation, or handling. If the virus mutates in the RT-PCR target region, SARS-CoV-2 may not be detected or may be detected less predictably. Inhibitors or other types of interference may produce a false negative result. Hospital Outpatient Visit on 07/03/2020 Component Date Value Ref Range Status SODIUM 07/03/2020 132* 133 - 146 mmol/L Final CHLORIDE 07/03/2020 96 96 - 108 mmol/L Final POTASSIUM 07/03/2020 3.8 3.3 - 5.1 mmol/L Final Specimen slightly hemolyzed, result may be falsely elevated. CO2 07/03/2020 23 21 - 35 mmol/L Final BUN 07/03/2020 12 6 - 19 mg/dL Final CREATININE 07/03/2020 0.60 0.5 - 1.5 mg/dL Final GLUCOSE 07/03/2020 156* 70 - 99 mg/dL Final CALCIUM 07/03/2020 9.2 8.4 - 10.3 mg/dL Final EGFR 07/03/2020 93 >59 mL/min/1.73m2 Final Estimated glomerular filtration rate calculated using the CKD-EPI equation. ANION GAP 07/03/2020 17 10 - 20 mmol/L Final WBC 07/03/2020 19.09* 4.00 - 11.00 K/uL Final RBC 07/03/2020 4.38 3.72 - 5.30 M/uL Final HGB 07/03/2020 12.3 11.4 - 15.9 g/dL Final HCT 07/03/2020 38.0 34.2 - 46.8 % Final PLT 07/03/2020 542* 140 - 430 K/uL Final Confirmed by smear review MCV 07/03/2020 86.8 78.0 - 97.0 fL Final MCH 07/03/2020 28.1 25.0 - 33.0 pg Final MCHC 07/03/2020 32.4 32.0 - 36.0 g/dL Final RDW 07/03/2020 14.7 11.0 - 16.0 % Final MPV 07/03/2020 10.4 8.4 - 12.8 fl Final NRBC 07/03/2020 0.00 0 /100 WBCs Final ABSOLUTE NRBC 07/03/2020 0.00 0 K/uL Final DIFF METHOD 07/03/2020 Auto Final NEUTS 07/03/2020 90.6* 43.0 - 75.0 % Final LYMPHS 07/03/2020 2.8* 18.2 - 47.4 % Final MONOS 07/03/2020 4.3 4.00 - 11.00 % Final EOS 07/03/2020 0.8 0.0 - 8.0 % Final BASOS 07/03/2020 0.5 0.0 - 2.0 % Final Granulocytes, immature (%) 07/03/2020 1.0* 0.0 - 0.9 % Final ABSOLUTE NEUTS 07/03/2020 17.30* 1.80 - 7.70 K/uL Final ABSOLUTE LYMPHS 07/03/2020 0.53* 1.00 - 3.10 K/uL Final ABSOLUTE MONOS 07/03/2020 0.83* 0.20 - 0.80 K/uL Final ABSOLUTE EOS 07/03/2020 0.15 0.00 - 0.80 K/uL Final ABSOLUTE BASOS 07/03/2020 0.09 0.00 - 0.09 K/uL Final Granulocytes, immature 07/03/2020 0.19* 0.00 - 0.05 K/uL Final TSH 07/03/2020 7.88* 0.27 - 4.20 uIU/mL Final CALR SPECIMEN TYPE 07/03/2020 EDTA WHOLE BLOOD Final CALR GENE MUT EXN 9 07/03/2020 SEE NOTE Final Comment: (NOTE) Peripheral blood, CALR mutation analysis, exon 9: Negative. No deletion or insertion was detected in CALR , exon 9. A negative mutation status does not exclude the presence of a myeloproliferative neoplasm or other neoplastic disorders. The analytic sensitivity of this assay is approximately 6% for the majority of CALR mutations and is approximately 20% for the rare type 1-bp deletion. Samples containing a lower percentage of mutated nucleic acid may therefore not be detected by this method. Signing Pathologist: Miguel Perez M.D., Ph.D. ADDITIONAL INFORMATION Exon 9 of CALR was amplified from genomic DNA by polymerase chain reaction (PCR). The size of the PCR product was analyzed by capillary electrophoresis. The analytic sensitivity of this assay is approximately 6% for the majority of CALR mutations and is approximately 20% for the rare type 1-bp deletion. This test was developed and its perform ance characteristics determined by [facility] in a manner consistent with CLIA requirements. This test has not been cleared or approved by the U.S. Food and Drug Administration. JAK2 - V617F Gene analysis 07/03/2020 SEE NOTE Final Comment: (NOTE) Peripheral blood, JAK2 exons 12-15 genetic alteration analysis: Negative. No pathogenic genetic alterations were detected in JAK2 , exons 12-15. A negative test result does not exclude the possibility of a myeloproliferative neoplasm (MPN). The sensitivity of this assay is approximately 20%, such that samples containing lower percentages of mutated nucleic acid may not be identified. If clinical suspicion is high for polycythemia vera, the test JAK2 V617F Mutation Detection (Test ID: JAK2B, JAK2M, or JAK2V) should be considered to obtain a sensitive screen for the JAK2 V617F alteration. If clinical suspicion is high for primary myelofibrosis (PMF) or essential thrombocythemia (ET), consider additional testing using the Myeloproliferative Neoplasm, JAK2 V617F with Reflex to CALR and MPL test (Test ID: MPNR), which reflexively tests for the presence of a JAK2 V617F, CALR, or MPL alteration. Clinicopathologic correlation is recommended for a def initive diagnosis. Signing Pathologist: Martin Leone M.D. ADDITIONAL INFORMATION Method summary - JAK2 exons 12-15 mutation analysis: Total RNA was extracted and converted to cDNA, followed by [place] sequencing of JAK2, exons 12-15 (see [facility] Interpretive Handbook for method details). The sensitivity of this assay is approximately 20%, such that samples containing lower percentages of mutated nucleic acid will appear negative. The reference gene transcript used for variant annotation is: [id number](hg19)[id number]. This test was developed and its performance characteristics determined by [facility] in a manner consistent with CLIA requirements. This test has not been cleared or approved by the U.S. Food and Drug Administration. JAK2 SEQUENCING RESULT 07/03/2020 see interpretation Final FREE T4 07/03/2020 1.0 0.9 - 1.7 ng/dL Final Hospital Outpatient Visit on 06/26/2020 Component Date Value Ref Range Status WBC 06/26/2020 23.14* 4.00 - 11.00 K/uL Final RBC 06/26/2020 4.29 3.72 - 5.30 M/uL Final HGB 06/26/2020 12.0 11.4 - 15.9 g/dL Final HCT 06/26/2020 37.2 34.2 - 46.8 % Final PLT 06/26/2020 705* 140 - 430 K/uL Final Microscopic estimate: Platelets increased. MCV 06/26/2020 86.7 78.0 - 97.0 fL Final MCH 06/26/2020 28.0 25.0 - 33.0 pg Final MCHC 06/26/2020 32.3 32.0 - 36.0 g/dL Final RDW 06/26/2020 14.6 11.0 - 16.0 % Final MPV 06/26/2020 10.7 8.4 - 12.8 fl Final NRBC 06/26/2020 0.00 0 /100 WBCs Final ABSOLUTE NRBC 06/26/2020 0.00 0 K/uL Final DIFF METHOD 06/26/2020 Auto Final NEUTS 06/26/2020 90.7* 43.0 - 75.0 % Final LYMPHS 06/26/2020 2.9* 18.2 - 47.4 % Final MONOS 06/26/2020 4.7 4.00 - 11.00 % Final EOS 06/26/2020 0.2 0.0 - 8.0 % Final BASOS 06/26/2020 0.2 0.0 - 2.0 % Final Granulocytes, immature (%) 06/26/2020 1.3* 0.0 - 0.9 % Final ABSOLUTE NEUTS 06/26/2020 21.00* 1.80 - 7.70 K/uL Final ABSOLUTE LYMPHS 06/26/2020 0.67* 1.00 - 3.10 K/uL Final ABSOLUTE MONOS 06/26/2020 1.08* 0.20 - 0.80 K/uL Final ABSOLUTE EOS 06/26/2020 0.04 0.00 - 0.80 K/uL Final ABSOLUTE BASOS 06/26/2020 0.05 0.00 - 0.09 K/uL Final Granulocytes, immature 06/26/2020 0.30* 0.00 - 0.05 K/uL Final C REACTIVE PROTEIN 06/26/2020 132.3* 0.0 - 4.0 mg/L Final FERRITIN 06/26/2020 15,297* 13 - 150 ug/L Final SODIUM 06/26/2020 131* 133 - 146 mmol/L Final POTASSIUM 06/26/2020 4.8 3.3 - 5.1 mmol/L Final CHLORIDE 06/26/2020 94* 96 - 108 mmol/L Final CO2 06/26/2020 26 21 - 35 mmol/L Final BUN 06/26/2020 19 6 - 19 mg/dL Final CREATININE 06/26/2020 0.80 0.5 - 1.5 mg/dL Final GLUCOSE 06/26/2020 130* 70 - 99 mg/dL Final ALBUMIN 06/26/2020 3.2* 3.9 - 4.8 g/dL Final TOTAL PROTEIN 06/26/2020 7.4 6.5 - 8.0 g/dL Final CALCIUM 06/26/2020 9.5 8.4 - 10.3 mg/dL Final ALKALINE PHOSPHATASE 06/26/2020 177* 39 - 117 U/L Final TOTAL BILIRUBIN 06/26/2020 0.3 0.0 - 1.2 mg/dL Final AST 06/26/2020 34 0 - 37 U/L Final ALT 06/26/2020 29 0 - 40 U/L Final GLOBULIN 06/26/2020 4.2 1 - 4.8 g/dL Final EGFR 06/26/2020 75 >59 mL/min/1.73m2 Final Estimated glomerular filtration rate calculated using the CKD-EPI equation. ANION GAP 06/26/2020 16 10 - 20 mmol/L Final URIC ACID 06/26/2020 4.7 2.4 - 7.0 mg/dL Final RHEUMATOID FACTOR 06/26/2020 18.7* 0.0 - 14.0 IU/ml Final Telephone on 06/26/2020 Component Date Value Ref Range Status C-ANCA 06/26/2020 Negative Negative Final P-ANCA 06/26/2020 Negative Negative Final Comment: (NOTE) Negative for cANCA and pANCA patterns by immunofluorescence. ADDITIONAL INFORMATION This test was developed and its performance characteristics determined by [facility] in a manner consistent with CLIA requirements. This test has not been cleared or approved by the U.S. Food and Drug Administration. 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 Now down to 10 mg of prednisone twice daily her acute phase reactants have dropped precipitously but is still not normal. I am most concerned about the recurrent pleural effusions which may be secondary to her metastatic disease. No evidence of current infection. More than 50% of this 32-minute visit was spent in [id number] conversation with the patient and her . Laboratory work was reviewed as well as her most recent chest x-ray showing bilateral pleural effusions. Her exam is unchanged however. The plan will be to slowly taper the prednisone 1st-7 0.5 mg in the morning and 10 mg at night for 10 days then 7.5 mg twice daily and then she will follow up with me by phone call. All of the questions were answered. Fall and fracture prevention strategies and compliance with vitamin D were also discussed. Hospital Outpatient Visit on 08/04/2020 Component Date Value Ref Range Status TSH 08/04/2020 3.92 0.27 - 4.20 uIU/mL Final FERRITIN 08/04/2020 1,958* 13 - 150 ug/L Final C REACTIVE PROTEIN 08/04/2020 9.2* 0.0 - 4.0 mg/L Final ESR 08/04/2020 55* 0 - 30 mm/h Final SODIUM 08/04/2020 137 133 - 146 mmol/L Final POTASSIUM 08/04/2020 4.2 3.3 - 5.1 mmol/L Final CHLORIDE 08/04/2020 99 96 - 108 mmol/L Final CO2 08/04/2020 27 21 - 35 mmol/L Final BUN 08/04/2020 12 6 - 19 mg/dL Final CREATININE 08/04/2020 0.70 0.5 - 1.5 mg/dL Final GLUCOSE 08/04/2020 128* 70 - 99 mg/dL Final ALBUMIN 08/04/2020 3.8* 3.9 - 4.8 g/dL Final TOTAL PROTEIN 08/04/2020 8.3* 6.5 - 8.0 g/dL Final CALCIUM 08/04/2020 9.6 8.4 - 10.3 mg/dL Final ALKALINE PHOSPHATASE 08/04/2020 111 39 - 117 U/L Final TOTAL BILIRUBIN 08/04/2020 0.2 0.0 - 1.2 mg/dL Final AST 08/04/2020 35 0 - 37 U/L Final ALT 08/04/2020 18 0 - 40 U/L Final GLOBULIN 08/04/2020 4.5 1 - 4.8 g/dL Final EGFR 08/04/2020 88 >59 mL/min/1.73m2 Final Estimated glomerular filtration rate calculated using the CKD-EPI equation. ANION GAP 08/04/2020 15 10 - 20 mmol/L Final WBC 08/04/2020 14.82* 4.00 - 11.00 K/uL Final RBC 08/04/2020 4.56 3.72 - 5.30 M/uL Final HGB 08/04/2020 12.2 11.4 - 15.9 g/dL Final HCT 08/04/2020 39.7 34.2 - 46.8 % Final PLT 08/04/2020 474* 140 - 430 K/uL Final MCV 08/04/2020 87.1 78.0 - 97.0 fL Final MCH 08/04/2020 26.8 25.0 - 33.0 pg Final MCHC 08/04/2020 30.7* 32.0 - 36.0 g/dL Final RDW 08/04/2020 16.2* 11.0 - 16.0 % Final MPV 08/04/2020 10.9 8.4 - 12.8 fl Final NRBC 08/04/2020 0.00 0 /100 WBCs Final ABSOLUTE NRBC 08/04/2020 0.00 0 K/uL Final DIFF METHOD 08/04/2020 Auto Final NEUTS 08/04/2020 83.2* 43.0 - 75.0 % Final LYMPHS 08/04/2020 5.3* 18.2 - 47.4 % Final MONOS 08/04/2020 7.7 4.00 - 11.00 % Final EOS 08/04/2020 1.8 0.0 - 8.0 % Final BASOS 08/04/2020 0.9 0.0 - 2.0 % Final Granulocytes, immature (%) 08/04/2020 1.1* 0.0 - 0.9 % Final ABSOLUTE NEUTS 08/04/2020 12.33* 1.80 - 7.70 K/uL Final ABSOLUTE LYMPHS 08/04/2020 0.78* 1.00 - 3.10 K/uL Final ABSOLUTE MONOS 08/04/2020 1.14* 0.20 - 0.80 K/uL Final ABSOLUTE EOS 08/04/2020 0.27 0.00 - 0.80 K/uL Final ABSOLUTE BASOS 08/04/2020 0.14* 0.00 - 0.09 K/uL Final Granulocytes, immature 08/04/2020 0.16* 0.00 - 0.05 K/uL Final HCV 08/04/2020 NON-REACTIVE NON-REACTIVE Final Hospital Outpatient Visit on 07/22/2020 Component Date Value Ref Range Status COVID Testing Status 07/22/2020 Specimen received in analyzing lab. Results should be available within 24 to 48 hrs. Final Symptomatic? 07/22/2020 NO Final Specimen Source 07/22/2020 AN SWAB Final SARS-CoV 2 (COVID-19) PCR 07/22/2020 NEGATIVE Negative Final Comment: (NOTE) 2019-novel Coronavirus (2019-nCoV) not detected by the qRT-PCR assay. Consider testing for other respiratory viruses or re-collecting for 2019-nCoV testing. Note: Optimum timing for peak viral levels during infections caused by 2019-nCoV have not been determined. Collection of multiple specimens from the same patient may be necessary to detect the virus. Methods and Limitations: This Laboratory Developed Test is a high-throughput version of the CDC 2019-nCoV Realtime RT-PCR test and has been validated in accordance with the guidance issued by the [employer] [employer] (May) and the FDA (May 12, 2019). This test has not been FDA cleared or approved but is being run under the FDAs Emergency Use Authorization (EUA) mechanism. This test was validated for dry nasal swabs. Method: RNA is isolated from respiratory specimens using [employer] Viral RNA Isolation Kits ([employer]); RNA is reverse transcribed to cDNA, and subsequently ampli fied in a Real-Time PCR Instrument ([employer] [id number]). This system provides qualitative detection of nucleic acid from SARS-CoV-2. For more detailed information on the test methods and limitations as well as for Fact Sheets for both Patients and Healthcare providers see https://broad.io/rdfas34xoke-. Positive results are indicative of active infection with SARS-CoV-2 but do not rule out bacterial infection or co-infection with other viruses. The agent detected may not be the definite cause of disease. Negative results do not preclude SARS-CoV-2 infection and should not be used as the sole basis for patient management decisions. False negative results may occur if amplification inhibitors are present in the specimen or if inadequate numbers of organisms are present in the specimen due to improper collection, transportation, or handling. If the virus mutates in the RT-PCR target region, SARS-CoV-2 may not be detected or may be detected less predictably. Inhibitors or other types of interference may produce a false negative result. Hospital Outpatient Visit on 07/03/2020 Component Date Value Ref Range Status SODIUM 07/03/2020 132* 133 - 146 mmol/L Final CHLORIDE 07/03/2020 96 96 - 108 mmol/L Final POTASSIUM 07/03/2020 3.8 3.3 - 5.1 mmol/L Final Specimen slightly hemolyzed, result may be falsely elevated. CO2 07/03/2020 23 21 - 35 mmol/L Final BUN 07/03/2020 12 6 - 19 mg/dL Final CREATININE 07/03/2020 0.60 0.5 - 1.5 mg/dL Final GLUCOSE 07/03/2020 156* 70 - 99 mg/dL Final CALCIUM 07/03/2020 9.2 8.4 - 10.3 mg/dL Final EGFR 07/03/2020 93 >59 mL/min/1.73m2 Final Estimated glomerular filtration rate calculated using the CKD-EPI equation. ANION GAP 07/03/2020 17 10 - 20 mmol/L Final WBC 07/03/2020 19.09* 4.00 - 11.00 K/uL Final RBC 07/03/2020 4.38 3.72 - 5.30 M/uL Final HGB 07/03/2020 12.3 11.4 - 15.9 g/dL Final HCT 07/03/2020 38.0 34.2 - 46.8 % Final PLT 07/03/2020 542* 140 - 430 K/uL Final Confirmed by smear review MCV 07/03/2020 86.8 78.0 - 97.0 fL Final MCH 07/03/2020 28.1 25.0 - 33.0 pg Final MCHC 07/03/2020 32.4 32.0 - 36.0 g/dL Final RDW 07/03/2020 14.7 11.0 - 16.0 % Final MPV 07/03/2020 10.4 8.4 - 12.8 fl Final NRBC 07/03/2020 0.00 0 /100 WBCs Final ABSOLUTE NRBC 07/03/2020 0.00 0 K/uL Final DIFF METHOD 07/03/2020 Auto Final NEUTS 07/03/2020 90.6* 43.0 - 75.0 % Final LYMPHS 07/03/2020 2.8* 18.2 - 47.4 % Final MONOS 07/03/2020 4.3 4.00 - 11.00 % Final EOS 07/03/2020 0.8 0.0 - 8.0 % Final BASOS 07/03/2020 0.5 0.0 - 2.0 % Final Granulocytes, immature (%) 07/03/2020 1.0* 0.0 - 0.9 % Final ABSOLUTE NEUTS 07/03/2020 17.30* 1.80 - 7.70 K/uL Final ABSOLUTE LYMPHS 07/03/2020 0.53* 1.00 - 3.10 K/uL Final ABSOLUTE MONOS 07/03/2020 0.83* 0.20 - 0.80 K/uL Final ABSOLUTE EOS 07/03/2020 0.15 0.00 - 0.80 K/uL Final ABSOLUTE BASOS 07/03/2020 0.09 0.00 - 0.09 K/uL Final Granulocytes, immature 07/03/2020 0.19* 0.00 - 0.05 K/uL Final TSH 07/03/2020 7.88* 0.27 - 4.20 uIU/mL Final CALR SPECIMEN TYPE 07/03/2020 EDTA WHOLE BLOOD Final CALR GENE MUT EXN 9 07/03/2020 SEE NOTE Final Comment: (NOTE) Peripheral blood, CALR mutation analysis, exon 9: Negative. No deletion or insertion was detected in CALR , exon 9. A negative mutation status does not exclude the presence of a myeloproliferative neoplasm or other neoplastic disorders. The analytic sensitivity of this assay is approximately 6% for the majority of CALR mutations and is approximately 20% for the rare type 1-bp deletion. Samples containing a lower percentage of mutated nucleic acid may therefore not be detected by this method. Signing Pathologist: Miguel Perez M.D., Ph.D. ADDITIONAL INFORMATION Exon 9 of CALR was amplified from genomic DNA by polymerase chain reaction (PCR). The size of the PCR product was analyzed by capillary electrophoresis. The analytic sensitivity of this assay is approximately 6% for the majority of CALR mutations and is approximately 20% for the rare type 1-bp deletion. This test was developed and its perform ance characteristics determined by [facility] in a manner consistent with CLIA requirements. This test has not been cleared or approved by the U.S. Food and Drug Administration. JAK2 - V617F Gene analysis 07/03/2020 SEE NOTE Final Comment: (NOTE) Peripheral blood, JAK2 exons 12-15 genetic alteration analysis: Negative. No pathogenic genetic alterations were detected in JAK2 , exons 12-15. A negative test result does not exclude the possibility of a myeloproliferative neoplasm (MPN). The sensitivity of this assay is approximately 20%, such that samples containing lower percentages of mutated nucleic acid may not be identified. If clinical suspicion is high for polycythemia vera, the test JAK2 V617F Mutation Detection (Test ID: JAK2B, JAK2M, or JAK2V) should be considered to obtain a sensitive screen for the JAK2 V617F alteration. If clinical suspicion is high for primary myelofibrosis (PMF) or essential thrombocythemia (ET), consider additional testing using the Myeloproliferative Neoplasm, JAK2 V617F with Reflex to CALR and MPL test (Test ID: MPNR), which reflexively tests for the presence of a JAK2 V617F, CALR, or MPL alteration. Clinicopathologic correlation is recommended for a def initive diagnosis. Signing Pathologist: Martin Leone M.D. ADDITIONAL INFORMATION Method summary - JAK2 exons 12-15 mutation analysis: Total RNA was extracted and converted to cDNA, followed by [place] sequencing of JAK2, exons 12-15 (see [facility] Interpretive Handbook for method details). The sensitivity of this assay is approximately 20%, such that samples containing lower percentages of mutated nucleic acid will appear negative. The reference gene transcript used for variant annotation is: GRCh37(hg19)[id number]. This test was developed and its performance characteristics determined by [facility] in a manner consistent with CLIA requirements. This test has not been cleared or approved by the U.S. Food and Drug Administration. JAK2 SEQUENCING RESULT 07/03/2020 see interpretation Final FREE T4 07/03/2020 1.0 0.9 - 1.7 ng/dL Final Hospital Outpatient Visit on 06/26/2020 Component Date Value Ref Range Status WBC 06/26/2020 23.14* 4.00 - 11.00 K/uL Final RBC 06/26/2020 4.29 3.72 - 5.30 M/uL Final HGB 06/26/2020 12.0 11.4 - 15.9 g/dL Final HCT 06/26/2020 37.2 34.2 - 46.8 % Final PLT 06/26/2020 705* 140 - 430 K/uL Final Microscopic estimate: Platelets increased. MCV 06/26/2020 86.7 78.0 - 97.0 fL Final MCH 06/26/2020 28.0 25.0 - 33.0 pg Final MCHC 06/26/2020 32.3 32.0 - 36.0 g/dL Final RDW 06/26/2020 14.6 11.0 - 16.0 % Final MPV 06/26/2020 10.7 8.4 - 12.8 fl Final NRBC 06/26/2020 0.00 0 /100 WBCs Final ABSOLUTE NRBC 06/26/2020 0.00 0 K/uL Final DIFF METHOD 06/26/2020 Auto Final NEUTS 06/26/2020 90.7* 43.0 - 75.0 % Final LYMPHS 06/26/2020 2.9* 18.2 - 47.4 % Final MONOS 06/26/2020 4.7 4.00 - 11.00 % Final EOS 06/26/2020 0.2 0.0 - 8.0 % Final BASOS 06/26/2020 0.2 0.0 - 2.0 % Final Granulocytes, immature (%) 06/26/2020 1.3* 0.0 - 0.9 % Final ABSOLUTE NEUTS 06/26/2020 21.00* 1.80 - 7.70 K/uL Final ABSOLUTE LYMPHS 06/26/2020 0.67* 1.00 - 3.10 K/uL Final ABSOLUTE MONOS 06/26/2020 1.08* 0.20 - 0.80 K/uL Final ABSOLUTE EOS 06/26/2020 0.04 0.00 - 0.80 K/uL Final ABSOLUTE BASOS 06/26/2020 0.05 0.00 - 0.09 K/uL Final Granulocytes, immature 06/26/2020 0.30* 0.00 - 0.05 K/uL Final C REACTIVE PROTEIN 06/26/2020 132.3* 0.0 - 4.0 mg/L Final FERRITIN 06/26/2020 15,297* 13 - 150 ug/L Final SODIUM 06/26/2020 131* 133 - 146 mmol/L Final POTASSIUM 06/26/2020 4.8 3.3 - 5.1 mmol/L Final CHLORIDE 06/26/2020 94* 96 - 108 mmol/L Final CO2 06/26/2020 26 21 - 35 mmol/L Final BUN 06/26/2020 19 6 - 19 mg/dL Final CREATININE 06/26/2020 0.80 0.5 - 1.5 mg/dL Final GLUCOSE 06/26/2020 130* 70 - 99 mg/dL Final ALBUMIN 06/26/2020 3.2* 3.9 - 4.8 g/dL Final TOTAL PROTEIN 06/26/2020 7.4 6.5 - 8.0 g/dL Final CALCIUM 06/26/2020 9.5 8.4 - 10.3 mg/dL Final ALKALINE PHOSPHATASE 06/26/2020 177* 39 - 117 U/L Final TOTAL BILIRUBIN 06/26/2020 0.3 0.0 - 1.2 mg/dL Final AST 06/26/2020 34 0 - 37 U/L Final ALT 06/26/2020 29 0 - 40 U/L Final GLOBULIN 06/26/2020 4.2 1 - 4.8 g/dL Final EGFR 06/26/2020 75 >59 mL/min/1.73m2 Final Estimated glomerular filtration rate calculated using the CKD-EPI equation. ANION GAP 06/26/2020 16 10 - 20 mmol/L Final URIC ACID 06/26/2020 4.7 2.4 - 7.0 mg/dL Final RHEUMATOID FACTOR 06/26/2020 18.7* 0.0 - 14.0 IU/ml Final Telephone on 06/26/2020 Component Date Value Ref Range Status C-ANCA 06/26/2020 Negative Negative Final P-ANCA 06/26/2020 Negative Negative Final Comment: (NOTE) Negative for cANCA and pANCA patterns by immunofluorescence. ADDITIONAL INFORMATION This test was developed and its performance characteristics determined by [facility] in a manner consistent with CLIA requirements. This test has not been cleared or approved by the U.S. Food and Drug Administration. ANTI-CCP IGG 06/26/2020 <8 0 - 16 U/mL Final Hospital Outpatient Visit on 06/19/2020 Component Date Value Ref Range Status SODIUM 06/19/2020 130* 133 - 146 mmol/L Final POTASSIUM 06/19/2020 5.7* 3.3 - 5.1 mmol/L Final CHLORIDE 06/19/2020 94* 96 - 108 mmol/L Final CO2 06/19/2020 25 21 - 35 mmol/L Final BUN 06/19/2020 25* 6 - 19 mg/dL Final CREATININE 06/19/2020 1.00 0.5 - 1.5 mg/dL Final GLUCOSE 06/19/2020 124* 70 - 99 mg/dL Final ALBUMIN 06/19/2020 3.2* 3.9 - 4.8 g/dL Final TOTAL PROTEIN 06/19/2020 8.5* 6.5 - 8.0 g/dL Final CALCIUM 06/19/2020 9.7 8.4 - 10.3 mg/dL Final ALKALINE PHOSPHATASE 06/19/2020 218* 39 - 117 U/L Final TOTAL BILIRUBIN 06/19/2020 0.3 0.0 - 1.2 mg/dL Final AST 06/19/2020 45* 0 - 37 U/L Final ALT 06/19/2020 28 0 - 40 U/L Final GLOBULIN 06/19/2020 5.3* 1 - 4.8 g/dL Final EGFR 06/19/2020 57* >59 mL/min/1.73m2 Final Estimated glomerular filtration rate calculated using the CKD-EPI equation. ANION GAP 06/19/2020 17 10 - 20 mmol/L Final MAGNESIUM 06/19/2020 2.5 1.6 - 2.6 mg/dL Final WBC 06/19/2020 31.81* 4.00 - 11.00 K/uL Final This result has been called to DR. RODRÍGUEZ by Kim Stephens on 06 19 2020 at 2111, and has been read back. RBC 06/19/2020 4.23 3.72 - 5.30 M/uL Final HGB 06/19/2020 12.3 11.4 - 15.9 g/dL Final HCT 06/19/2020 37.6 34.2 - 46.8 % Final PLT 06/19/2020 1,145* 140 - 430 K/uL Final This result has been called to DR. RODRÍGUEZ by Kim Stephens on 06 19 2020 at 2111, and has been read back. MCV 06/19/2020 88.9 78.0 - 97.0 fL Final MCH 06/19/2020 29.1 25.0 - 33.0 pg Final MCHC 06/19/2020 32.7 32.0 - 36.0 g/dL Final RDW 06/19/2020 14.5 11.0 - 16.0 % Final MPV 06/19/2020 10.6 8.4 - 12.8 fl Final NRBC 06/19/2020 0.00 0 /100 WBCs Final ABSOLUTE NRBC 06/19/2020 0.00 0 K/uL Final DIFF METHOD 06/19/2020 Auto Final NEUTS 06/19/2020 92.2* 43.0 - 75.0 % Final LYMPHS 06/19/2020 1.8* 18.2 - 47.4 % Final MONOS 06/19/2020 4.2 4.00 - 11.00 % Final EOS 06/19/2020 0.0 0.0 - 8.0 % Final BASOS 06/19/2020 0.3 0.0 - 2.0 % Final Granulocytes, immature (%) 06/19/2020 1.5* 0.0 - 0.9 % Final ABSOLUTE NEUTS 06/19/2020 29.31* 1.80 - 7.70 K/uL Final ABSOLUTE LYMPHS 06/19/2020 0.58* 1.00 - 3.10 K/uL Final ABSOLUTE MONOS 06/19/2020 1.35* 0.20 - 0.80 K/uL Final ABSOLUTE EOS 06/19/2020 0.00 0.00 - 0.80 K/uL Final ABSOLUTE BASOS 06/19/2020 0.09 0.00 - 0.09 K/uL Final Granulocytes, immature 06/19/2020 0.48* 0.00 - 0.05 K/uL Final TSH 06/19/2020 7.07* 0.27 - 4.20 uIU/mL Final PATH REVIEW 06/19/2020 FINAL Final Comment: Leukocytosis with neutrophilia and some dysplastic neutrophils. Thrombocytosis. While the findings can be seen in reactive processes, myelodysplastic myeloproliferative process cannot be ruled out. Reviewed by Vera Arias MD No results displayed because visit has over 200 results. Admission on 05/30/2020, Discharged on 05/30/2020 Component Date Value Ref Range Status WBC 05/30/2020 18.23* 4.00 - 11.00 K/uL Final RBC 05/30/2020 4.62 3.72 - 5.30 M/uL Final HGB 05/30/2020 13.5 11.4 - 15.9 g/dL Final HCT 05/30/2020 40.3 34.2 - 46.8 % Final PLT 05/30/2020 422 140 - 430 K/uL Final MCV 05/30/2020 87.2 78.0 - 97.0 fL Final MCH 05/30/2020 29.2 25.0 - 33.0 pg Final MCHC 05/30/2020 33.5 32.0 - 36.0 g/dL Final RDW 05/30/2020 13.6 11.0 - 16.0 % Final MPV 05/30/2020 10.6 8.4 - 12.8 fl Final NRBC 05/30/2020 0.00 0 /100 WBCs Final ABSOLUTE NRBC 05/30/2020 0.00 0 K/uL Final DIFF METHOD 05/30/2020 Auto Final NEUTS 05/30/2020 85.6* 43.0 - 75.0 % Final LYMPHS 05/30/2020 4.9* 18.2 - 47.4 % Final MONOS 05/30/2020 7.8 4.00 - 11.00 % Final EOS 05/30/2020 0.1 0.0 - 8.0 % Final BASOS 05/30/2020 0.7 0.0 - 2.0 % Final Granulocytes, immature (%) 05/30/2020 0.9 0.0 - 0.9 % Final ABSOLUTE NEUTS 05/30/2020 15.61* 1.80 - 7.70 K/uL Final ABSOLUTE LYMPHS 05/30/2020 0.89* 1.00 - 3.10 K/uL Final ABSOLUTE MONOS 05/30/2020 1.42* 0.20 - 0.80 K/uL Final ABSOLUTE EOS 05/30/2020 0.02 0.00 - 0.80 K/uL Final ABSOLUTE BASOS 05/30/2020 0.13* 0.00 - 0.09 K/uL Final Granulocytes, immature 05/30/2020 0.16* 0.00 - 0.05 K/uL Final SODIUM 05/30/2020 137 133 - 146 mmol/L Final CHLORIDE 05/30/2020 99 96 - 108 mmol/L Final POTASSIUM 05/30/2020 4.1 3.3 - 5.1 mmol/L Final Specimen slightly hemolyzed, result may be falsely elevated. CO2 05/30/2020 25 21 - 35 mmol/L Final BUN 05/30/2020 12 6 - 19 mg/dL Final CREATININE 05/30/2020 0.80 0.5 - 1.5 mg/dL Final GLUCOSE 05/30/2020 173* 70 - 99 mg/dL Final CALCIUM 05/30/2020 9.1 8.4 - 10.3 mg/dL Final EGFR 05/30/2020 75 >59 mL/min/1.73m2 Final Estimated glomerular filtration rate calculated using the CKD-EPI equation. ANION GAP 05/30/2020 17 10 - 20 mmol/L Final TSH 05/30/2020 2.09 0.27 - 4.20 uIU/mL Final Test Ordered 05/30/2020 COVID, Flu has been ordered Final Specimen Source 05/30/2020 AN SWAB Final SARS-CoV 2 (COVID-19) PCR 05/30/2020 NEGATIVE Negative Final Comment: (NOTE) 2019-novel Coronavirus (2019-nCoV) not detected by the qRT-PCR assay. Consider testing for other respiratory viruses or re-collecting for 2019-nCoV testing. Note: Optimum timing for peak viral levels during infections caused by 2019-nCoV have not been determined. Collection of multiple specimens from the same patient may be necessary to detect the virus. Methods and Limitations: This Laboratory Developed Test is a high-throughput version of the CDC 2019-nCoV Realtime RT-PCR test and has been validated in accordance with the guidance issued by the [employer] [employer] (May) and the FDA (May 12, 2019). This test has not been FDA cleared or approved but is being run under the FDA's Emergency Use Authorization (EUA) mechanism. This test was validated for dry nasal swabs. Method: RNA is isolated from respiratory specimens using MomentFeed-96 Viral RNA Isolation Kits ([employer]); RNA is reverse transcribed to cDNA, and subsequently ampl ified in a Real-Time PCR Instrument ([employer] ViiA7). This system provides qualitative detection of nucleic acid from SARS-CoV-2. For more detailed information on the test methods and limitations as well as for Fact Sheets for both Patients and Healthcare providers see [email or web address] ti ng-work-0 Positive results are indicative of active infection with SARS-CoV-2 but do not rule out bacterial infection or co-infection with other viruses. The agent detected may not be the definite cause of disease. Negative results do not preclude SARS-CoV-2 infection and should not be used as the sole basis for patient management decisions. False negative results may occur if amplification inhibitors are present in the specimen or if inadequate numbers of organisms are present in the specimen due to improper collection, transportation, or handling. If the virus mutates in the RT-PCR target region, SARS-CoV-2 may not be det ected or may be detected less predictably. Inhibitors or other types of interference may produce a false negative result. Influenza A, NAAT 05/30/2020 Negative Negative Final Influenza B, NAAT 05/30/2020 Negative Negative Final COLOR 05/30/2020 STRAW* Yellow Final CLARITY 05/30/2020 Clear Final GLUCOSE 05/30/2020 Negative Negative Final BILI 05/30/2020 Negative Negative Final KETONES 05/30/2020 Negative Negative Final SPECIFIC GRAVITY 05/30/2020 <1.005 1.005 - 1.030 Final BLOOD 05/30/2020 1+* Negative Final PH 05/30/2020 6.0 5.0 - 8.0 Final Protein-UA 05/30/2020 Negative Negative Final NITRITE 05/30/2020 Negative Negative Final Leukocyte esterase, ur 05/30/2020 Negative Negative Final LACTATE 05/30/2020 1.18 0.50 - 2.20 mmol/L Final Special Requests 05/30/2020 None Final BLOOD CULTURE 05/30/2020 NO GROWTH 5 DAYS Final Special Requests 05/30/2020 None Final BLOOD CULTURE 05/30/2020 NO GROWTH 5 DAYS Final PT 05/30/2020 14.2* 10.2 - 12.9 sec Final INR 05/30/2020 1.3* 0.9 - 1.1 Final Therapeutic range for oral Vitamin K antagonists: 2.0-3.5 WBC 05/30/2020 5-10* NONE SEEN /hpf Final RBC 05/30/2020 0-2* NONE SEEN /hpf Final URINE EPITHELIAL 05/30/2020 0-4* NONE SEEN Final MUCUS 05/30/2020 NONE SEEN NONE SEEN /hpf Final BACTERIA 05/30/2020 1+* NONE SEEN /hpf Final CAST 05/30/2020 3-5 Final GRANULAR CAST Admission on 05/23/2020, Discharged on 05/23/2020 Component Date Value Ref Range Status SODIUM 05/23/2020 137 133 - 146 mmol/L Final CHLORIDE 05/23/2020 102 96 - 108 mmol/L Final POTASSIUM 05/23/2020 3.9 3.3 - 5.1 mmol/L Final CO2 05/23/2020 24 21 - 35 mmol/L Final BUN 05/23/2020 10 6 - 19 mg/dL Final CREATININE 05/23/2020 0.80 0.5 - 1.5 mg/dL Final GLUCOSE 05/23/2020 114* 70 - 99 mg/dL Final CALCIUM 05/23/2020 9.4 8.4 - 10.3 mg/dL Final EGFR 05/23/2020 75 >59 mL/min/1.73m2 Final Estimated glomerular filtration rate calculated using the CKD-EPI equation. ANION GAP 05/23/2020 15 10 - 20 mmol/L Final WBC 05/23/2020 6.76 4.00 - 11.00 K/uL Final RBC 05/23/2020 5.01 3.72 - 5.30 M/uL Final HGB 05/23/2020 14.7 11.4 - 15.9 g/dL Final HCT 05/23/2020 44.5 34.2 - 46.8 % Final PLT 05/23/2020 331 140 - 430 K/uL Final MCV 05/23/2020 88.8 78.0 - 97.0 fL Final MCH 05/23/2020 29.3 25.0 - 33.0 pg Final MCHC 05/23/2020 33.0 32.0 - 36.0 g/dL Final RDW 05/23/2020 13.6 11.0 - 16.0 % Final MPV 05/23/2020 10.9 8.4 - 12.8 fl Final NRBC 05/23/2020 0.00 0 /100 WBCs Final ABSOLUTE NRBC 05/23/2020 0.00 0 K/uL Final DIFF METHOD 05/23/2020 Auto Final NEUTS 05/23/2020 81.6* 43.0 - 75.0 % Final LYMPHS 05/23/2020 9.8* 18.2 - 47.4 % Final MONOS 05/23/2020 6.5 4.00 - 11.00 % Final EOS 05/23/2020 0.1 0.0 - 8.0 % Final BASOS 05/23/2020 1.6 0.0 - 2.0 % Final Granulocytes, immature (%) 05/23/2020 0.4 0.0 - 0.9 % Final ABSOLUTE NEUTS 05/23/2020 5.51 1.80 - 7.70 K/uL Final ABSOLUTE LYMPHS 05/23/2020 0.66* 1.00 - 3.10 K/uL Final ABSOLUTE MONOS 05/23/2020 0.44 0.20 - 0.80 K/uL Final ABSOLUTE EOS 05/23/2020 0.01 0.00 - 0.80 K/uL Final ABSOLUTE BASOS 05/23/2020 0.11* 0.00 - 0.09 K/uL Final Granulocytes, immature 05/23/2020 0.03 0.00 - 0.05 K/uL Final ALKALINE PHOSPHATASE 05/23/2020 111 39 - 117 U/L Final TOTAL BILIRUBIN 05/23/2020 <0.2 0.0 - 1.2 mg/dL Final DIRECT BILIRUBIN 05/23/2020 <0.2 0 - 0.3 mg/dL Final Bilirubin (Indirect) 05/23/2020 NOT CALCULATED 0 - 1.5 mg/dL Final AST 05/23/2020 42* 0 - 37 U/L Final ALT 05/23/2020 30 0 - 40 U/L Final TOTAL PROTEIN 05/23/2020 7.9 6.5 - 8.0 g/dL Final ALBUMIN 05/23/2020 3.9 3.9 - 4.8 g/dL Final GLOBULIN 05/23/2020 4.0 1 - 4.8 g/dL Final A/G Ratio 05/23/2020 0.98* 1.00 - 4.80 RATIO Final Troponin T-hs Gen5 05/23/2020 <6 0 - 9 ng/L Final Ventricular Rate EKG/MIN 05/23/2020 73 BPM Final Atrial Rate 05/23/2020 73 BPM Final GA Interval 05/23/2020 156 ms Final QRS Duration 05/23/2020 84 ms Final QT Interval 05/23/2020 382 ms Final QTC Interval 05/23/2020 420 ms Final P Quitman 05/23/2020 49 degrees Final R Wave Quitman 05/23/2020 57 degrees Final T Wave Quitman 05/23/2020 20 degrees Final Hospital Outpatient Visit on 05/20/2020 Component Date Value Ref Range Status COVID Testing Status 05/20/2020 Specimen received in analyzing lab. Results should be available within 24 to 48 hrs. Final Symptomatic? 05/20/2020 YES Final Specimen Source 05/20/2020 AN SWAB Final SARS-CoV 2 (COVID-19) PCR 05/20/2020 NEGATIVE Negative Final Comment: (NOTE) 2019-novel Coronavirus (2019-nCoV) not detected by the qRT-PCR assay. Consider testing for other respiratory viruses or re-collecting for 2019-nCoV testing. Note: Optimum timing for peak viral levels during infections caused by 2019-nCoV have not been determined. Collection of multiple specimens from the same patient may be necessary to detect the virus. Methods and Limitations: This Laboratory Developed Test is a high-throughput version of the CDC 2019-nCoV Realtime RT-PCR test and has been validated in accordance with the guidance issued by the [employer] (May) and the FDA (May 12, 2019). This test has not been FDA cleared or approved but is being run under the FDA's Emergency Use Authorization (EUA) mechanism. This test was validated for dry nasal swabs. Method: RNA is isolated from respiratory specimens using MomentFeed-96 Viral RNA Isolation Kits ([employer]); RNA is reverse transcribed to cDNA, and subsequently ampl ified in a Real-Time PCR Instrument ([employer] ViiA7). This system provides qualitative detection of nucleic acid from SARS-CoV-2. For more detailed information on the test methods and limitations as well as for Fact Sheets for both Patients and Healthcare providers see [email or web address] ti ng-work-0 Positive results are indicative of active infection with SARS-CoV-2 but do not rule out bacterial infection or co-infection with other viruses. The agent detected may not be the definite cause of disease. Negative results do not preclude SARS-CoV-2 infection and should not be used as the sole basis for patient management decisions. False negative results may occur if amplification inhibitors are present in the specimen or if inadequate numbers of organisms are present in the specimen due to improper collection, transportation, or handling. If the virus mutates in the RT-PCR target region, SARS-CoV-2 may not be det ected or may be detected less predictably. Inhibitors or other types of interference may produce a false negative result. There may be more visits with results that are not included. 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 She does have breast cancer and on waiting to receive consult from oncology. We will continue on 15 mg of prednisone twice daily treating her thrush today with Mycelex Patti shoes 5 a day for 7 days and requesting a ferritin level, CRP, CBC with differential and a comprehensive chemistry profile and plan further tapering of prednisone based on that. Clinically she has improved. Hospital Outpatient Visit on 06/19/2020 Component Date Value Ref Range Status SODIUM 06/19/2020 130* 133 - 146 mmol/L Final POTASSIUM 06/19/2020 5.7* 3.3 - 5.1 mmol/L Final CHLORIDE 06/19/2020 94* 96 - 108 mmol/L Final CO2 06/19/2020 25 21 - 35 mmol/L Final BUN 06/19/2020 25* 6 - 19 mg/dL Final CREATININE 06/19/2020 1.00 0.5 - 1.5 mg/dL Final GLUCOSE 06/19/2020 124* 70 - 99 mg/dL Final ALBUMIN 06/19/2020 3.2* 3.9 - 4.8 g/dL Final TOTAL PROTEIN 06/19/2020 8.5* 6.5 - 8.0 g/dL Final CALCIUM 06/19/2020 9.7 8.4 - 10.3 mg/dL Final ALKALINE PHOSPHATASE 06/19/2020 218* 39 - 117 U/L Final TOTAL BILIRUBIN 06/19/2020 0.3 0.0 - 1.2 mg/dL Final AST 06/19/2020 45* 0 - 37 U/L Final ALT 06/19/2020 28 0 - 40 U/L Final GLOBULIN 06/19/2020 5.3* 1 - 4.8 g/dL Final EGFR 06/19/2020 57* >59 mL/min/1.73m2 Final Estimated glomerular filtration rate calculated using the CKD-EPI equation. ANION GAP 06/19/2020 17 10 - 20 mmol/L Final MAGNESIUM 06/19/2020 2.5 1.6 - 2.6 mg/dL Final WBC 06/19/2020 31.81* 4.00 - 11.00 K/uL Final This result has been called to DR. RODRÍGUEZ by Kim Stephens on 06 19 2020 at 2111, and has been read back. RBC 06/19/2020 4.23 3.72 - 5.30 M/uL Final HGB 06/19/2020 12.3 11.4 - 15.9 g/dL Final HCT 06/19/2020 37.6 34.2 - 46.8 % Final PLT 06/19/2020 1,145* 140 - 430 K/uL Final This result has been called to DR. RODRÍGUEZ by Kim Stephens on 06 19 2020 at 2111, and has been read back. MCV 06/19/2020 88.9 78.0 - 97.0 fL Final MCH 06/19/2020 29.1 25.0 - 33.0 pg Final MCHC 06/19/2020 32.7 32.0 - 36.0 g/dL Final RDW 06/19/2020 14.5 11.0 - 16.0 % Final MPV 06/19/2020 10.6 8.4 - 12.8 fl Final NRBC 06/19/2020 0.00 0 /100 WBCs Final ABSOLUTE NRBC 06/19/2020 0.00 0 K/uL Final DIFF METHOD 06/19/2020 Auto Final NEUTS 06/19/2020 92.2* 43.0 - 75.0 % Final LYMPHS 06/19/2020 1.8* 18.2 - 47.4 % Final MONOS 06/19/2020 4.2 4.00 - 11.00 % Final EOS 06/19/2020 0.0 0.0 - 8.0 % Final BASOS 06/19/2020 0.3 0.0 - 2.0 % Final Granulocytes, immature (%) 06/19/2020 1.5* 0.0 - 0.9 % Final ABSOLUTE NEUTS 06/19/2020 29.31* 1.80 - 7.70 K/uL Final ABSOLUTE LYMPHS 06/19/2020 0.58* 1.00 - 3.10 K/uL Final ABSOLUTE MONOS 06/19/2020 1.35* 0.20 - 0.80 K/uL Final ABSOLUTE EOS 06/19/2020 0.00 0.00 - 0.80 K/uL Final ABSOLUTE BASOS 06/19/2020 0.09 0.00 - 0.09 K/uL Final Granulocytes, immature 06/19/2020 0.48* 0.00 - 0.05 K/uL Final TSH 06/19/2020 7.07* 0.27 - 4.20 uIU/mL Final PATH REVIEW 06/19/2020 FINAL Final Comment: Leukocytosis with neutrophilia and some dysplastic neutrophils. Thrombocytosis. While the findings can be seen in reactive processes, myelodysplastic myeloproliferative process cannot be ruled out. Reviewed by Vera Arias MD No results displayed because visit has over 200 results. Admission on 05/30/2020, Discharged on 05/30/2020 Component Date Value Ref Range Status WBC 05/30/2020 18.23* 4.00 - 11.00 K/uL Final RBC 05/30/2020 4.62 3.72 - 5.30 M/uL Final HGB 05/30/2020 13.5 11.4 - 15.9 g/dL Final HCT 05/30/2020 40.3 34.2 - 46.8 % Final PLT 05/30/2020 422 140 - 430 K/uL Final MCV 05/30/2020 87.2 78.0 - 97.0 fL Final MCH 05/30/2020 29.2 25.0 - 33.0 pg Final MCHC 05/30/2020 33.5 32.0 - 36.0 g/dL Final RDW 05/30/2020 13.6 11.0 - 16.0 % Final MPV 05/30/2020 10.6 8.4 - 12.8 fl Final NRBC 05/30/2020 0.00 0 /100 WBCs Final ABSOLUTE NRBC 05/30/2020 0.00 0 K/uL Final DIFF METHOD 05/30/2020 Auto Final NEUTS 05/30/2020 85.6* 43.0 - 75.0 % Final LYMPHS 05/30/2020 4.9* 18.2 - 47.4 % Final MONOS 05/30/2020 7.8 4.00 - 11.00 % Final EOS 05/30/2020 0.1 0.0 - 8.0 % Final BASOS 05/30/2020 0.7 0.0 - 2.0 % Final Granulocytes, immature (%) 05/30/2020 0.9 0.0 - 0.9 % Final ABSOLUTE NEUTS 05/30/2020 15.61* 1.80 - 7.70 K/uL Final ABSOLUTE LYMPHS 05/30/2020 0.89* 1.00 - 3.10 K/uL Final ABSOLUTE MONOS 05/30/2020 1.42* 0.20 - 0.80 K/uL Final ABSOLUTE EOS 05/30/2020 0.02 0.00 - 0.80 K/uL Final ABSOLUTE BASOS 05/30/2020 0.13* 0.00 - 0.09 K/uL Final Granulocytes, immature 05/30/2020 0.16* 0.00 - 0.05 K/uL Final SODIUM 05/30/2020 137 133 - 146 mmol/L Final CHLORIDE 05/30/2020 99 96 - 108 mmol/L Final POTASSIUM 05/30/2020 4.1 3.3 - 5.1 mmol/L Final Specimen slightly hemolyzed, result may be falsely elevated. CO2 05/30/2020 25 21 - 35 mmol/L Final BUN 05/30/2020 12 6 - 19 mg/dL Final CREATININE 05/30/2020 0.80 0.5 - 1.5 mg/dL Final GLUCOSE 05/30/2020 173* 70 - 99 mg/dL Final CALCIUM 05/30/2020 9.1 8.4 - 10.3 mg/dL Final EGFR 05/30/2020 75 >59 mL/min/1.73m2 Final Estimated glomerular filtration rate calculated using the CKD-EPI equation. ANION GAP 05/30/2020 17 10 - 20 mmol/L Final TSH 05/30/2020 2.09 0.27 - 4.20 uIU/mL Final Test Ordered 05/30/2020 COVID, Flu has been ordered Final Specimen Source 05/30/2020 AN SWAB Final SARS-CoV 2 (COVID-19) PCR 05/30/2020 NEGATIVE Negative Final Comment: (NOTE) 2019-novel Coronavirus (2019-nCoV) not detected by the qRT-PCR assay. Consider testing for other respiratory viruses or re-collecting for 2019-nCoV testing. Note: Optimum timing for peak viral levels during infections caused by 2019-nCoV have not been determined. Collection of multiple specimens from the same patient may be necessary to detect the virus. Methods and Limitations: This Laboratory Developed Test is a high-throughput version of the CDC 2019-nCoV Realtime RT-PCR test and has been validated in accordance with the guidance issued by the [employer] (May) and the FDA (May 12, 2019). This test has not been FDA cleared or approved but is being run under the FDA's Emergency Use Authorization (EUA) mechanism. This test was validated for dry nasal swabs. Method: RNA is isolated from respiratory specimens using MomentFeed-96 Viral RNA Isolation Kits ([employer]); RNA is reverse transcribed to cDNA, and subsequently ampl ified in a Real-Time PCR Instrument ([employer] ViiA[employer]). This system provides qualitative detection of nucleic acid from SARS-CoV-2. For more detailed information on the test methods and limitations as well as for Fact Sheets for both Patients and Healthcare providers see [email or web address]-[email or web address]-[email or web address] ti ng-work-0 Positive results are indicative of active infection with SARS-CoV-2 but do not rule out bacterial infection or co-infection with other viruses. The agent detected may not be the definite cause of disease. Negative results do not preclude SARS-CoV-2 infection and should not be used as the sole basis for patient management decisions. False negative results may occur if amplification inhibitors are present in the specimen or if inadequate numbers of organisms are present in the specimen due to improper collection, transportation, or handling. If the virus mutates in the RT-PCR target region, SARS-CoV-2 may not be det ected or may be detected less predictably. Inhibitors or other types of interference may produce a false negative result. Influenza A, NAAT 05/30/2020 Negative Negative Final Influenza B, NAAT 05/30/2020 Negative Negative Final COLOR 05/30/2020 STRAW* Yellow Final CLARITY 05/30/2020 Clear Final GLUCOSE 05/30/2020 Negative Negative Final BILI 05/30/2020 Negative Negative Final KETONES 05/30/2020 Negative Negative Final SPECIFIC GRAVITY 05/30/2020 <1.005 1.005 - 1.030 Final BLOOD 05/30/2020 1+* Negative Final PH 05/30/2020 6.0 5.0 - 8.0 Final Protein-UA 05/30/2020 Negative Negative Final NITRITE 05/30/2020 Negative Negative Final Leukocyte esterase, ur 05/30/2020 Negative Negative Final LACTATE 05/30/2020 1.18 0.50 - 2.20 mmol/L Final Special Requests 05/30/2020 None Final BLOOD CULTURE 05/30/2020 NO GROWTH 5 DAYS Final Special Requests 05/30/2020 None Final BLOOD CULTURE 05/30/2020 NO GROWTH 5 DAYS Final PT 05/30/2020 14.2* 10.2 - 12.9 sec Final INR 05/30/2020 1.3* 0.9 - 1.1 Final Therapeutic range for oral Vitamin K antagonists: 2.0-3.5 WBC 05/30/2020 5-10* NONE SEEN /hpf Final RBC 05/30/2020 0-2* NONE SEEN /hpf Final URINE EPITHELIAL 05/30/2020 0-4* NONE SEEN Final MUCUS 05/30/2020 NONE SEEN NONE SEEN /hpf Final BACTERIA 05/30/2020 1+* NONE SEEN /hpf Final CAST 05/30/2020 3-5 Final GRANULAR CAST Admission on 05/23/2020, Discharged on 05/23/2020 Component Date Value Ref Range Status SODIUM 05/23/2020 137 133 - 146 mmol/L Final CHLORIDE 05/23/2020 102 96 - 108 mmol/L Final POTASSIUM 05/23/2020 3.9 3.3 - 5.1 mmol/L Final CO2 05/23/2020 24 21 - 35 mmol/L Final BUN 05/23/2020 10 6 - 19 mg/dL Final CREATININE 05/23/2020 0.80 0.5 - 1.5 mg/dL Final GLUCOSE 05/23/2020 114* 70 - 99 mg/dL Final CALCIUM 05/23/2020 9.4 8.4 - 10.3 mg/dL Final EGFR 05/23/2020 75 >59 mL/min/1.73m2 Final Estimated glomerular filtration rate calculated using the CKD-EPI equation. ANION GAP 05/23/2020 15 10 - 20 mmol/L Final WBC 05/23/2020 6.76 4.00 - 11.00 K/uL Final RBC 05/23/2020 5.01 3.72 - 5.30 M/uL Final HGB 05/23/2020 14.7 11.4 - 15.9 g/dL Final HCT 05/23/2020 44.5 34.2 - 46.8 % Final PLT 05/23/2020 331 140 - 430 K/uL Final MCV 05/23/2020 88.8 78.0 - 97.0 fL Final MCH 05/23/2020 29.3 25.0 - 33.0 pg Final MCHC 05/23/2020 33.0 32.0 - 36.0 g/dL Final RDW 05/23/2020 13.6 11.0 - 16.0 % Final MPV 05/23/2020 10.9 8.4 - 12.8 fl Final NRBC 05/23/2020 0.00 0 /100 WBCs Final ABSOLUTE NRBC 05/23/2020 0.00 0 K/uL Final DIFF METHOD 05/23/2020 Auto Final NEUTS 05/23/2020 81.6* 43.0 - 75.0 % Final LYMPHS 05/23/2020 9.8* 18.2 - 47.4 % Final MONOS 05/23/2020 6.5 4.00 - 11.00 % Final EOS 05/23/2020 0.1 0.0 - 8.0 % Final BASOS 05/23/2020 1.6 0.0 - 2.0 % Final Granulocytes, immature (%) 05/23/2020 0.4 0.0 - 0.9 % Final ABSOLUTE NEUTS 05/23/2020 5.51 1.80 - 7.70 K/uL Final ABSOLUTE LYMPHS 05/23/2020 0.66* 1.00 - 3.10 K/uL Final ABSOLUTE MONOS 05/23/2020 0.44 0.20 - 0.80 K/uL Final ABSOLUTE EOS 05/23/2020 0.01 0.00 - 0.80 K/uL Final ABSOLUTE BASOS 05/23/2020 0.11* 0.00 - 0.09 K/uL Final Granulocytes, immature 05/23/2020 0.03 0.00 - 0.05 K/uL Final ALKALINE PHOSPHATASE 05/23/2020 111 39 - 117 U/L Final TOTAL BILIRUBIN 05/23/2020 <0.2 0.0 - 1.2 mg/dL Final DIRECT BILIRUBIN 05/23/2020 <0.2 0 - 0.3 mg/dL Final Bilirubin (Indirect) 05/23/2020 NOT CALCULATED 0 - 1.5 mg/dL Final AST 05/23/2020 42* 0 - 37 U/L Final ALT 05/23/2020 30 0 - 40 U/L Final TOTAL PROTEIN 05/23/2020 7.9 6.5 - 8.0 g/dL Final ALBUMIN 05/23/2020 3.9 3.9 - 4.8 g/dL Final GLOBULIN 05/23/2020 4.0 1 - 4.8 g/dL Final A/G Ratio 05/23/2020 0.98* 1.00 - 4.80 RATIO Final Troponin T-hs Gen5 05/23/2020 <6 0 - 9 ng/L Final Ventricular Rate EKG/MIN 05/23/2020 73 BPM Final Atrial Rate 05/23/2020 73 BPM Final GA Interval 05/23/2020 156 ms Final QRS Duration 05/23/2020 84 ms Final QT Interval 05/23/2020 382 ms Final QTC Interval 05/23/2020 420 ms Final P Quitman 05/23/2020 49 degrees Final R Wave Quitman 05/23/2020 57 degrees Final T Wave Quitman 05/23/2020 20 degrees Final Hospital Outpatient Visit on 05/20/2020 Component Date Value Ref Range Status COVID Testing Status 05/20/2020 Specimen received in analyzing lab. Results should be available within 24 to 48 hrs. Final Symptomatic? 05/20/2020 YES Final Specimen Source 05/20/2020 AN SWAB Final SARS-CoV 2 (COVID-19) PCR 05/20/2020 NEGATIVE Negative Final Comment: (NOTE) 2019-novel Coronavirus (2019-nCoV) not detected by the qRT-PCR assay. Consider testing for other respiratory viruses or re-collecting for 2019-nCoV testing. Note: Optimum timing for peak viral levels during infections caused by 2019-nCoV have not been determined. Collection of multiple specimens from the same patient may be necessary to detect the virus. Methods and Limitations: This Laboratory Developed Test is a high-throughput version of the CDC 2019-nCoV Realtime RT-PCR test and has been validated in accordance with the guidance issued by the [employer] (May) and the FDA (May 12, 2019). This test has not been FDA cleared or approved but is being run under the FDA's Emergency Use Authorization (EUA) mechanism. This test was validated for dry nasal swabs. Method: RNA is isolated from respiratory specimens using MomentFeed-96 Viral RNA Isolation Kits ([employer]); RNA is reverse transcribed to cDNA, and subsequently ampl ified in a Real-Time PCR Instrument ([employer] V[employer]). This system provides qualitative detection of nucleic acid from SARS-CoV-2. For more detailed information on the test methods and limitations as well as for Fact Sheets for both Patients and Healthcare providers see [email or web address]://[email or web address]-grc-[email or web address]-pjse-evioh-[email or web address] ti ng-work-0 Positive results are indicative of active infection with SARS-CoV-2 but do not rule out bacterial infection or co-infection with other viruses. The agent detected may not be the definite cause of disease. Negative results do not preclude SARS-CoV-2 infection and should not be used as the sole basis for patient management decisions. False negative results may occur if amplification inhibitors are present in the specimen or if inadequate numbers of organisms are present in the specimen due to improper collection, transportation, or handling. If the virus mutates in the RT-PCR target region, SARS-CoV-2 may not be det ected or may be detected less predictably. Inhibitors or other types of interference may produce a false negative result. Hospital Outpatient Visit on 04/07/2020 Component Date Value Ref Range Status SARS-CoV-2 antibody total 04/07/2020 Negative Negative Final Comment: A negative test result does not rule out the possibility of an infection with SARS-CoV-2. Serum or plasma samples from the early (pre-seroconversion) phase of illness can yield negative findings. Therefore, this test cannot be used to diagnose an acute infection. Also, over time, titers may decline and eventually become negative. Hospital Outpatient Visit on 03/31/2020 Component Date Value Ref Range Status COVID Testing Status 03/31/2020 Specimen received in analyzing lab. Final Symptomatic? 03/31/2020 YES Final Specimen Source 03/31/2020 AN SWAB Final SARS-CoV 2 (COVID-19) PCR 03/31/2020 NEGATIVE Negative Final Comment: (NOTE) 2019-novel Coronavirus (2019-nCoV) not detected by the qRT-PCR assay. Consider testing for other respiratory viruses or re-collecting for 2019-nCoV testing. Note: Optimum timing for peak viral levels during infections caused by 2019-nCoV have not been determined. Collection of multiple specimens from the same patient may be necessary to detect the virus. Methods and Limitations: This Laboratory Developed Test is a high-throughput version of the CDC 2019-nCoV Realtime RT-PCR test and has been validated in accordance with the guidance issued by the [employer] (May 31, 2019) and the FDA (May 12, 2019). This test has not been FDA cleared or approved but has been authorized by FDA under an EUA for this laboratory. This test is only authorized for the duration of the declaration that circumstances exist justifying the authorization of emergency use of in vitro diagnostic tests for detection and/or diagnosis of COVID-19 under Section 564(b)(1) of the Act, 21 U.S.C. 360bbb-3(b)(1), unless the authorization is terminated or revoked sooner. This test has been authorized only for the detection of nucleic acid from SARS-CoV-2, not for any other viruses or pathogens. The test was validated for use with respiratory specimens obtained via nasopharyngeal, oropharyngeal, or nasal swabs in liquid transport media or saline. Nasal swabs may also be sent dry. The performance of this test has not been established for other specimens. Specimens collected using other FDA recommended Specimen Collection Materials listed in the FDA COVID-19 [employer] communication (June 07, 2019) are processed with the caveat that they were not all validated for use with this test and the result must be interpreted in this context. Method: RNA is isolated from respiratory specimens in approved media using MomentFeed-96 Viral RNA Isolation Kits ([employer], [id number]), is reverse transcribed to cDNA, and subsequently am plified in the [employer] ViiA7 Real-Time PCR Instrument. This system provides qualitative detection of nucleic acid from SARS-CoV-2. For more detailed information on the test methods and limitations see [email or web address]-lebv-info.[email or web address]/ Positive results are indicative of active infection with SARS-CoV-2 but do not rule out bacterial infection or co-infection with other viruses. The agent detected may not be the definite cause of disease. Negative results do not preclude SARS-CoV-2 infection and should not be used as the sole basis for patient management decisions. False negative results may occur if amplification inhibitors are present in the specimen or if inadequate numbers of organisms are present in the specimen due to improper collection, transportation, or handling. If the virus mutates in the RT-PCR target region, SARS-CoV-2 may not be detected or may be detected less predictably. Inhibitors or other types of interference may produce a f alse negative result. An interference study evaluating the effect of common cold medications was not performed. 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 Mentioned other disease modifying antirheumatic drugs used for treating adult onset stills including hydroxychloroquine, leflunomide, Imuran, and methotrexate. I am reluctant to use any of these medications given her breast cancer diagnosis. Hopefully with injection therapy today in problem points of joints and tendon junctions we can cause some real clinical improvement while slowly tapering the prednisone by 5 mg every 3 days. She will follow up with me in 10 days. Laboratory work was reviewed. MRI of left shoulder was reviewed indicating some supraspinatus tendinosis and several bony lesions compatible with metastatic disease. No results displayed because visit has over 200 results. Admission on 05/30/2020, Discharged on 05/30/2020 Component Date Value Ref Range Status WBC 05/30/2020 18.23* 4.00 - 11.00 K/uL Final RBC 05/30/2020 4.62 3.72 - 5.30 M/uL Final HGB 05/30/2020 13.5 11.4 - 15.9 g/dL Final HCT 05/30/2020 40.3 34.2 - 46.8 % Final PLT 05/30/2020 422 140 - 430 K/uL Final MCV 05/30/2020 87.2 78.0 - 97.0 fL Final MCH 05/30/2020 29.2 25.0 - 33.0 pg Final MCHC 05/30/2020 33.5 32.0 - 36.0 g/dL Final RDW 05/30/2020 13.6 11.0 - 16.0 % Final MPV 05/30/2020 10.6 8.4 - 12.8 fl Final NRBC 05/30/2020 0.00 0 /100 WBCs Final ABSOLUTE NRBC 05/30/2020 0.00 0 K/uL Final DIFF METHOD 05/30/2020 Auto Final NEUTS 05/30/2020 85.6* 43.0 - 75.0 % Final LYMPHS 05/30/2020 4.9* 18.2 - 47.4 % Final MONOS 05/30/2020 7.8 4.00 - 11.00 % Final EOS 05/30/2020 0.1 0.0 - 8.0 % Final BASOS 05/30/2020 0.7 0.0 - 2.0 % Final Granulocytes, immature (%) 05/30/2020 0.9 0.0 - 0.9 % Final ABSOLUTE NEUTS 05/30/2020 15.61* 1.80 - 7.70 K/uL Final ABSOLUTE LYMPHS 05/30/2020 0.89* 1.00 - 3.10 K/uL Final ABSOLUTE MONOS 05/30/2020 1.42* 0.20 - 0.80 K/uL Final ABSOLUTE EOS 05/30/2020 0.02 0.00 - 0.80 K/uL Final ABSOLUTE BASOS 05/30/2020 0.13* 0.00 - 0.09 K/uL Final Granulocytes, immature 05/30/2020 0.16* 0.00 - 0.05 K/uL Final SODIUM 05/30/2020 137 133 - 146 mmol/L Final CHLORIDE 05/30/2020 99 96 - 108 mmol/L Final POTASSIUM 05/30/2020 4.1 3.3 - 5.1 mmol/L Final Specimen slightly hemolyzed, result may be falsely elevated. CO2 05/30/2020 25 21 - 35 mmol/L Final BUN 05/30/2020 12 6 - 19 mg/dL Final CREATININE 05/30/2020 0.80 0.5 - 1.5 mg/dL Final GLUCOSE 05/30/2020 173* 70 - 99 mg/dL Final CALCIUM 05/30/2020 9.1 8.4 - 10.3 mg/dL Final EGFR 05/30/2020 75 >59 mL/min/1.73m2 Final Estimated glomerular filtration rate calculated using the CKD-EPI equation. ANION GAP 05/30/2020 17 10 - 20 mmol/L Final TSH 05/30/2020 2.09 0.27 - 4.20 uIU/mL Final Test Ordered 05/30/2020 COVID, Flu has been ordered Final Specimen Source 05/30/2020 AN SWAB Final SARS-CoV 2 (COVID-19) PCR 05/30/2020 NEGATIVE Negative Final Comment: (NOTE) 2019-novel Coronavirus (2019-nCoV) not detected by the qRT-PCR assay. Consider testing for other respiratory viruses or re-collecting for 2019-nCoV testing. Note: Optimum timing for peak viral levels during infections caused by 2019-nCoV have not been determined. Collection of multiple specimens from the same patient may be necessary to detect the virus. Methods and Limitations: This Laboratory Developed Test is a high-throughput version of the CDC 2019-nCoV Realtime RT-PCR test and has been validated in accordance with the guidance issued by the [employer] (May) and the FDA (May 12, 2019). This test has not been FDA cleared or approved but is being run under the FDA's Emergency Use Authorization (EUA) mechanism. This test was validated for dry nasal swabs. Method: RNA is isolated from respiratory specimens using MomentFeed-96 Viral RNA Isolation Kits ([employer]); RNA is reverse transcribed to cDNA, and subsequently ampl ified in a Real-Time PCR Instrument ([employer] ViiA7). This system provides qualitative detection of nucleic acid from SARS-CoV-2. For more detailed information on the test methods and limitations as well as for Fact Sheets for both Patients and Healthcare providers see [email or web address]://[email or web address]/idee-zen-inhfvi/ynz-adel-ebtmq-[email or web address]-sandy ti ng-work-0 Positive results are indicative of active infection with SARS-CoV-2 but do not rule out bacterial infection or co-infection with other viruses. The agent detected may not be the definite cause of disease. Negative results do not preclude SARS-CoV-2 infection and should not be used as the sole basis for patient management decisions. False negative results may occur if amplification inhibitors are present in the specimen or if inadequate numbers of organisms are present in the specimen due to improper collection, transportation, or handling. If the virus mutates in the RT-PCR target region, SARS-CoV-2 may not be det ected or may be detected less predictably. Inhibitors or other types of interference may produce a false negative result. Influenza A, NAAT 05/30/2020 Negative Negative Final Influenza B, NAAT 05/30/2020 Negative Negative Final COLOR 05/30/2020 STRAW* Yellow Final CLARITY 05/30/2020 Clear Final GLUCOSE 05/30/2020 Negative Negative Final BILI 05/30/2020 Negative Negative Final KETONES 05/30/2020 Negative Negative Final SPECIFIC GRAVITY 05/30/2020 <1.005 1.005 - 1.030 Final BLOOD 05/30/2020 1+* Negative Final PH 05/30/2020 6.0 5.0 - 8.0 Final Protein-UA 05/30/2020 Negative Negative Final NITRITE 05/30/2020 Negative Negative Final Leukocyte esterase, ur 05/30/2020 Negative Negative Final LACTATE 05/30/2020 1.18 0.50 - 2.20 mmol/L Final Special Requests 05/30/2020 None Final BLOOD CULTURE 05/30/2020 NO GROWTH 5 DAYS Final Special Requests 05/30/2020 None Final BLOOD CULTURE 05/30/2020 NO GROWTH 5 DAYS Final PT 05/30/2020 14.2* 10.2 - 12.9 sec Final INR 05/30/2020 1.3* 0.9 - 1.1 Final Therapeutic range for oral Vitamin K antagonists: 2.0-3.5 WBC 05/30/2020 5-10* NONE SEEN /hpf Final RBC 05/30/2020 0-2* NONE SEEN /hpf Final URINE EPITHELIAL 05/30/2020 0-4* NONE SEEN Final MUCUS 05/30/2020 NONE SEEN NONE SEEN /hpf Final BACTERIA 05/30/2020 1+* NONE SEEN /hpf Final CAST 05/30/2020 3-5 Final GRANULAR CAST Admission on 05/23/2020, Discharged on 05/23/2020 Component Date Value Ref Range Status SODIUM 05/23/2020 137 133 - 146 mmol/L Final CHLORIDE 05/23/2020 102 96 - 108 mmol/L Final POTASSIUM 05/23/2020 3.9 3.3 - 5.1 mmol/L Final CO2 05/23/2020 24 21 - 35 mmol/L Final BUN 05/23/2020 10 6 - 19 mg/dL Final CREATININE 05/23/2020 0.80 0.5 - 1.5 mg/dL Final GLUCOSE 05/23/2020 114* 70 - 99 mg/dL Final CALCIUM 05/23/2020 9.4 8.4 - 10.3 mg/dL Final EGFR 05/23/2020 75 >59 mL/min/1.73m2 Final Estimated glomerular filtration rate calculated using the CKD-EPI equation. ANION GAP 05/23/2020 15 10 - 20 mmol/L Final WBC 05/23/2020 6.76 4.00 - 11.00 K/uL Final RBC 05/23/2020 5.01 3.72 - 5.30 M/uL Final HGB 05/23/2020 14.7 11.4 - 15.9 g/dL Final HCT 05/23/2020 44.5 34.2 - 46.8 % Final PLT 05/23/2020 331 140 - 430 K/uL Final MCV 05/23/2020 88.8 78.0 - 97.0 fL Final MCH 05/23/2020 29.3 25.0 - 33.0 pg Final MCHC 05/23/2020 33.0 32.0 - 36.0 g/dL Final RDW 05/23/2020 13.6 11.0 - 16.0 % Final MPV 05/23/2020 10.9 8.4 - 12.8 fl Final NRBC 05/23/2020 0.00 0 /100 WBCs Final ABSOLUTE NRBC 05/23/2020 0.00 0 K/uL Final DIFF METHOD 05/23/2020 Auto Final NEUTS 05/23/2020 81.6* 43.0 - 75.0 % Final LYMPHS 05/23/2020 9.8* 18.2 - 47.4 % Final MONOS 05/23/2020 6.5 4.00 - 11.00 % Final EOS 05/23/2020 0.1 0.0 - 8.0 % Final BASOS 05/23/2020 1.6 0.0 - 2.0 % Final Granulocytes, immature (%) 05/23/2020 0.4 0.0 - 0.9 % Final ABSOLUTE NEUTS 05/23/2020 5.51 1.80 - 7.70 K/uL Final ABSOLUTE LYMPHS 05/23/2020 0.66* 1.00 - 3.10 K/uL Final ABSOLUTE MONOS 05/23/2020 0.44 0.20 - 0.80 K/uL Final ABSOLUTE EOS 05/23/2020 0.01 0.00 - 0.80 K/uL Final ABSOLUTE BASOS 05/23/2020 0.11* 0.00 - 0.09 K/uL Final Granulocytes, immature 05/23/2020 0.03 0.00 - 0.05 K/uL Final ALKALINE PHOSPHATASE 05/23/2020 111 39 - 117 U/L Final TOTAL BILIRUBIN 05/23/2020 <0.2 0.0 - 1.2 mg/dL Final DIRECT BILIRUBIN 05/23/2020 <0.2 0 - 0.3 mg/dL Final Bilirubin (Indirect) 05/23/2020 NOT CALCULATED 0 - 1.5 mg/dL Final AST 05/23/2020 42* 0 - 37 U/L Final ALT 05/23/2020 30 0 - 40 U/L Final TOTAL PROTEIN 05/23/2020 7.9 6.5 - 8.0 g/dL Final ALBUMIN 05/23/2020 3.9 3.9 - 4.8 g/dL Final GLOBULIN 05/23/2020 4.0 1 - 4.8 g/dL Final A/G Ratio 05/23/2020 0.98* 1.00 - 4.80 RATIO Final Troponin T-hs Gen5 05/23/2020 <6 0 - 9 ng/L Final Ventricular Rate EKG/MIN 05/23/2020 73 BPM Final Atrial Rate 05/23/2020 73 BPM Final GA Interval 05/23/2020 156 ms Final QRS Duration 05/23/2020 84 ms Final QT Interval 05/23/2020 382 ms Final QTC Interval 05/23/2020 420 ms Final P Quitman 05/23/2020 49 degrees Final R Wave Quitman 05/23/2020 57 degrees Final T Wave Quitman 05/23/2020 20 degrees Final Hospital Outpatient Visit on 05/20/2020 Component Date Value Ref Range Status COVID Testing Status 05/20/2020 Specimen received in analyzing lab. Results should be available within 24 to 48 hrs. Final Symptomatic? 05/20/2020 YES Final Specimen Source 05/20/2020 AN SWAB Final SARS-CoV 2 (COVID-19) PCR 05/20/2020 NEGATIVE Negative Final Comment: (NOTE) 2019-novel Coronavirus (2019-nCoV) not detected by the qRT-PCR assay. Consider testing for other respiratory viruses or re-collecting for 2019-nCoV testing. Note: Optimum timing for peak viral levels during infections caused by 2019-nCoV have not been determined. Collection of multiple specimens from the same patient may be necessary to detect the virus. Methods and Limitations: This Laboratory Developed Test is a high-throughput version of the CDC 2019-nCoV Realtime RT-PCR test and has been validated in accordance with the guidance issued by the [employer] (May) and the FDA (May 12, 2019). This test has not been FDA cleared or approved but is being run under the FDA's Emergency Use Authorization (EUA) mechanism. This test was validated for dry nasal swabs. Method: RNA is isolated from respiratory specimens using SnocapMAX-96 Viral RNA Isolation Kits ([employer]); RNA is reverse transcribed to cDNA, and subsequently ampl ified in a Real-Time PCR Instrument ([employer] ViiA7). This system provides qualitative detection of nucleic acid from SARS-CoV-2. For more detailed information on the test methods and limitations as well as for Fact Sheets for both Patients and Healthcare providers see [email or web address]://[email or web address]/rrfe-lhd-szhqqb/keu-lgcy-ihhdz-[email or web address]-sandy ti ng-work-0 Positive results are indicative of active infection with SARS-CoV-2 but do not rule out bacterial infection or co-infection with other viruses. The agent detected may not be the definite cause of disease. Negative results do not preclude SARS-CoV-2 infection and should not be used as the sole basis for patient management decisions. False negative results may occur if amplification inhibitors are present in the specimen or if inadequate numbers of organisms are present in the specimen due to improper collection, transportation, or handling. If the virus mutates in the RT-PCR target region, SARS-CoV-2 may not be det ected or may be detected less predictably. Inhibitors or other types of interference may produce a false negative result. Hospital Outpatient Visit on 04/07/2020 Component Date Value Ref Range Status SARS-CoV-2 antibody total 04/07/2020 Negative Negative Final Comment: A negative test result does not rule out the possibility of an infection with SARS-CoV-2. Serum or plasma samples from the early (pre-seroconversion) phase of illness can yield negative findings. Therefore, this test cannot be used to diagnose an acute infection. Also, over time, titers may decline and eventually become negative. Hospital Outpatient Visit on 03/31/2020 Component Date Value Ref Range Status COVID Testing Status 03/31/2020 Specimen received in analyzing lab. Final Symptomatic? 03/31/2020 YES Final Specimen Source 03/31/2020 AN SWAB Final SARS-CoV 2 (COVID-19) PCR 03/31/2020 NEGATIVE Negative Final Comment: (NOTE) 2019-novel Coronavirus (2019-nCoV) not detected by the qRT-PCR assay. Consider testing for other respiratory viruses or re-collecting for 2019-nCoV testing. Note: Optimum timing for peak viral levels during infections caused by 2019-nCoV have not been determined. Collection of multiple specimens from the same patient may be necessary to detect the virus. Methods and Limitations: This Laboratory Developed Test is a high-throughput version of the CDC 2019-nCoV Realtime RT-PCR test and has been validated in accordance with the guidance issued by the [employer] (May 31, 2019) and the FDA (May 12, 2019). This test has not been FDA cleared or approved but has been authorized by FDA under an EUA for this laboratory. This test is only authorized for the duration of the declaration that circumstances exist justifying the authorization of emergency use of in vitro diagnostic tests for detection and/or diagnosis of COVID-19 under Section 564(b)(1) of the Act, 21 U.S.C. 360bbb-3(b)(1), unless the authorization is terminated or revoked sooner. This test has been authorized only for the detection of nucleic acid from SARS-CoV-2, not for any other viruses or pathogens. The test was validated for use with respiratory specimens obtained via nasopharyngeal, oropharyngeal, or nasal swabs in liquid transport media or saline. Nasal swabs may also be sent dry. The performance of this test has not been established for other specimens. Specimens collected using other FDA recommended Specimen Collection Materials listed in the FDA COVID-19 [employer] communication (June 07, 2019) are processed with the caveat that they were not all validated for use with this test and the result must be interpreted in this context. Method: RNA is isolated from respiratory specimens in approved media using MomentFeed-96 Viral RNA Isolation Kits ([employer], [id number]), is reverse transcribed to cDNA, and subsequently am plified in the [employer] V[employer] Real-Time PCR Instrument. This system provides qualitative detection of nucleic acid from SARS-CoV-2. For more detailed information on the test methods and limitations see [email or web address]-npwf-info.[facility].org/ Positive results are indicative of active infection with SARS-CoV-2 but do not rule out bacterial infection or co-infection with other viruses. The agent detected may not be the definite cause of disease. Negative results do not preclude SARS-CoV-2 infection and should not be used as the sole basis for patient management decisions. False negative results may occur if amplification inhibitors are present in the specimen or if inadequate numbers of organisms are present in the specimen due to improper collection, transportation, or handling. If the virus mutates in the RT-PCR target region, SARS-CoV-2 may not be detected or may be detected less predictably. Inhibitors or other types of interference may produce a f alse negative result. An interference study evaluating the effect of common cold medications was not performed. Hospital Outpatient Visit on 03/21/2020 Component Date Value Ref Range Status HEMOGLOBIN A1C 03/21/2020 6.0* 4.3 - 5.8 % Final FIBRINOGEN 03/21/2020 299 176 - 476 mg/dL Final Assessment & Plan (06/11/2020 4:26 PM EDT): Patient feeling improved today with Solumedrol, will continue for another day and likely transition to 1mg/kg prednisone tomorrow in anticipation of discharge Status post left-sided thoracentesis, 850 cc out, 1500cc out right side. Patient weaned to room air this afternoon Discuss further the opportunity/indication for biologic treatment as an outpatient, Rheum follow-up on discharge for steroid wean Supportive care including PT/OT/ambulate hallways/incentive spirometer, advance diet Oncology identified that Stills can also be present in breast cancer patients, continue with steroids, outpatient Onc follow-up with Dr. Denton Trend Ferritin, CRP and ESR with morning labs tomorrow, ferritin trending downwards Acute pain of left shoulder 06/02/2020 Assessment & Plan (06/11/2020 4:27 PM EDT): Persistent disabling pain in left shoulder after injury. MRI of the shoulder did not reveal a significant tear or other mechanical injury to explain her pain, suspect component of tendinitis and mild OA. Will recommend PT Continue with tylenol and oxycodone, PT on discharge and range of motion exercises. Possible palliative care referral as an outpatient through [facility]. Pleural effusion 06/02/2020 Assessment & Plan (06/11/2020 4:28 PM EDT): S/p bilateral thoracentesis Still has residual pleural effusions, but weaned to room air so I think it is reasonable to hold off on additional procedures. Follow-up outpatient and if needs O2 overnight, consider home O2 eval and Pulm outpatient visit. Suspect should improve with continued steroid use Essential hypertension 01/20/2017 Assessment & Plan (06/02/2020 10:34 PM EDT): Blood pressure controlled. We will continue with amlodipine and Lopressor. Food allergy 01/20/2017 History of breast cancer 01/20/2017 Assessment & Plan (04/18/2024 3:01 PM EST): Continue close follow-up with treating oncologist as scheduled. Importance of regular daily weightbearing exercises such as walking preferably 45-60 minutes to reduce the risk of osteoporosis strongly encouraged. I have reviewed with her again the fact that long-term prednisone therapy in her postmenopausal state and presence of breast cancer with bony metastases requires additional bone preserving therapy. Assessment & Plan (11/30/2023 9:36 AM EDT): Continue close follow-up with treating oncologist as scheduled. Importance of regular daily weightbearing exercises such as walking preferably 45-60 minutes to reduce the risk of osteoporosis strongly encouraged. I have reviewed with her again the fact that long-term prednisone therapy in her postmenopausal state and presence of breast cancer with bony metastases requires additional bone preserving therapy. Assessment & Plan (05/30/2023 1:20 PM EDT): Continue close follow-up with treating oncologist as scheduled. Importance of regular daily weightbearing exercises such as walking preferably 45-60 minutes to reduce the risk of osteoporosis strongly encouraged. I have reviewed with her again the fact that long-term prednisone therapy in her postmenopausal state and presence of breast cancer with bony metastases requires additional bone preserving therapy. History of Graves' disease 01/20/2017 Assessment & Plan (10/17/2024 1:37 PM EDT): Well controlled on current thyroid replacement therapy-follow closely with prescribing physician. Assessment & Plan (04/18/2024 3:01 PM EST): Well controlled on current thyroid replacement therapy-follow closely with prescribing physician. Assessment & Plan (11/30/2023 9:47 AM EDT): Well controlled on current thyroid replacement therapy-follow closely with prescribing physician. Assessment & Plan (05/30/2023 9:46 AM EDT): Well controlled on current thyroid replacement therapy-follow closely with prescribing physician. Assessment & Plan (11/29/2022 10:06 AM EDT): Well controlled on current thyroid replacement therapy-follow closely with prescribing physician. History of ulcerative colitis 01/20/2017 Assessment & Plan (10/17/2024 1:36 PM EDT): Required colectomy with ileostomy 1995. Assessment & Plan (04/18/2024 3:01 PM EST): Required colectomy with ileostomy 1995. Assessment & Plan (11/30/2023 9:47 AM EDT): Required colectomy with ileostomy 1995. Assessment & Plan (05/30/2023 9:46 AM EDT): Required colectomy with ileostomy 1995. Assessment & Plan (11/29/2022 10:09 AM EDT): Required colectomy with ileostomy 1995. Ileostomy in place 01/20/2017 Assessment & Plan (10/17/2024 1:36 PM EDT): She continues close follow-up with ostomy nurse and professor of forest planning as scheduled. Assessment & Plan (05/13/2024 12:03 PM EST): She continues close follow-up with ostomy nurse and professor of forest planning as scheduled. Mixed hyperlipidemia 01/20/2017 Postoperative hypothyroidism 01/20/2017 Current Treatment and Therapy Plans FULVESTRANT* Plan Start Date:03/16/2021 Plan Provider:Stephen Nelson MD Linked Problems Malignant neoplasm of right female breast, unspecified estrogen receptor status, unspecified site of breast Treatment Medications Current Day (Day 1 , Cycle 51 - Planned for 01/30/2025) Next Day (Day 1, Cycle 52 - Planned for 02/27/2025) fulvestrant (FASLODEX) fulvestrant (FASL ODEX) IM syringe 500 mg fulvestrant (FASLODEX) IM syringe 500 mg Other Current Plans METHYLPREDNISOLONE DAILY* Plan Start Date:08/15/2024 Plan Provider:Maria Del Rosario Graham MD Linked Problems Adult Still's disease Treatment Medications No medications scheduled. Past Treatment and Therapy Plans No past plan information found. Resolved Problems Problem Noted Date Diagnosed Date Resolved Date Acquired hypothyroidism 01/20/2017 110 11/2016 Rash 06/08/2020 Arthralgia 06/08/2020
--- OUTSIDE RECORDS SUMMARY | 2025-01-04 12:22 | XMS_ITS | Encounter Summary ---
Author Organization [facility] Address [address] [place] [address] Phone Care Team Providers Care Universal Winding Machine Operator Name Role Phone Marybeth Denton MD Unavailable Karo Rondon NP Unavailable [phone] Blair Foreman MD Primary Care Provider [phone] Stephen Nelson MD Unavailable [phone] BriceJosehao SARAVIA Unavailable Blair Foreman MD Unavailable Petty De La Rosa NP Unavailable [phone] Encounter Details Date Type Department Care Team (Late st Contact Info) Description 01/02/2025 Orders Only [facility] Rheumatology [address] [place] [address] Maria Del Rosario Graham MD [address], [address] [place] [address] 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) Social History Tobacco Use Types [...] Info) Description 01/30/2025 2:40 PM EST Infusion [facility] at [address] [address] Stephen Nelson MD [address] [place] [address] 01/31/2025 11:00 AM EST Office Visit [facility] Rheumatology [address] [place] [address] Maria Del Rosario Graham MD [address] [place] [address], [address] [place] [address] [email or web address] 02/28/2025 9:40 AM EST Infusion [facility] at [address] [address] Stephen Nelson MD [address] [place] [address] 03/28/2025 1:30 PM EST Appointment [facility] [address] [place] [address] Stephen Nelson MD [address] [place] [address] 03/28/2025 2:30 PM EST Office Visit [facility] at [address] [address] Tracy Worrell FNP [address] [place] [address] 03/28/2025 3:20 PM EST Infusion [facility] at [address] [address] Stephen Nelson MD [address] [place] [address] 06/14/2025 1:00 PM EDT Office Visit [facility] [place] [facility] [address] [place] [address] Blair Foreman MD [address] [place] [address] [email or web address] documented as of this encounter Results * Cortisol AM (01/04/2025 8:51 AM EDT) CORTISOL AM 13.3 6.02 - 18.4 ug/dL [facility] Blood 01/04/2025 8:51 AM EDT 01/04/2025 9:02 AM EDT us Maria Del Rosario Graham MD LAB BLOOD ORDERABLES Fin al Result [address] [address] documented in this encounter Visit Diagnoses 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- Primary documented in this encounter Additional Health Concerns Assessment Noted Time PHQ-2 Depression Total Score: 0 05/01/19 25 4:07 PM EST documented as of this encounter Care Teams Universal Winding Machine Operator Relationship Specialty Start Date End Date Blair Foreman MD [address] [place] [address] [email or web address] PCP - General Internal Medicine 01/07/20 Marybeth Denton MD [address] [place] [address] [email or web address] 12/04/19 Karo Rondon NP [address] [place] [address] Obstetrics and Gynecology 12/04/19 Stephen Nelson MD [address] [place] [address] [email or web address] Primary Oncologist Medical Oncology 02/02/21 Livia Narvaez CNP [address] [place] [address] [email or web address] Nurse Practitioner Medical Oncology 07/04/21 Blair Foreman MD [address] [place] [address] [email or web address] Insurance Assigned Provider 06/18/23 Petty De La Rosa NP [address] [place] [address] [email or web address] Nurse Practitioner 08/02/24 documented as of this encounter Additional Source Comments The information contained in this document represents components of the legal health record. It is not the complete legal health record.[facility]
--- OUTSIDE RECORDS SUMMARY | 2025-01-04 12:22 | XMS_ITS | Encounter Summary ---
Author Organization [facility] Address [address] [place] [address] Phone Care Team Providers Care Lawyers Name Role Phone Lilian Umana NP Primary Care Provider Marybeth Denton MD Unavailable Karo Rondon NP Unavailable [phone] Blair Foreman MD Primary Care Provider [phone] Blair Foreman MD Unavailable Stephen Nelson MD Unavailable [phone] Livia Narvaez CNP Unavailable Blair Foreman MD Unavailable [phone] Petty De La Rosa PROCESS DEVELOPMENT ASSOCIATE Unavailable Encounter Details Date Type Department Care Team (Late st Contact Info) Description 01/02/2020 Procedure Pass [facility] [address] [place] [address] Social History Tobacco Use Types Packs/Day Years Used Date Smoking Tobacco: Never Smokeless Tobacco: Never Alcohol Use Standard Drinks/Week Comments Yes 4 (1 standard drink = 0.6 oz pur e alcohol) 4 wine per week Comments No Sex and Gender Information Value Date Recorded Sex Assigned at Female 03/21/2017 9:38 AM EST Legal Sex Female 10:01 PM EDT Gender Identity Female 03/21/2017 9:38 AM EST Sexual Orientation Straight 03/21/2017 9: 38 AM EST documented as of this encounter Plan of Treatment Upcoming Encounters Date Type Department Care Team (Late st Contact Info) Description 01/30/2025 2:40 PM EST Infusion [facility] at [address] [address] Stephen Nelson MD [address] [place] [address] 01/31/2025 11:00 AM EST Office Visit [facility] Rheumatology [address] [place] [address] Maria Del Rosario Graham MD [address] [place] [address], [address] [place] [address] [email or web address] 02/28/2025 9:40 AM EST Infusion [facility] at [address] [address] Stephen Nelson MD [address] [place] [address] 03/28/2025 1:30 PM EST Appointment [facility] [address] [place] [address] Stephen Nelson MD [address] [place] [address] 03/28/2025 2:30 PM EST Office Visit [facility] at [address] [address] Tracy Worrell FNP [address] [place] [address] 03/28/2025 3:20 PM EST Infusion [facility] at [address] [address] Stephen Nelson MD 30 [place] [address] 06/14/2025 1:00 PM EDT Office Visit [facility] Internal Medicine 40 [place] [address] Blair Foreman MD 40 [place] [address] [email or web address] documented as of this encounter Visit Diagnoses Not on filedocumented in this encounter Additional Health Concerns Infection Onset Date Last Indicated Resolved Time CoV-Risk 03/19/2020 03/31/2020 04/06/2020 1:24 AM EST CoV-Exposed Comment:Recent close contact documented in the COVID-19 PCR/PRO order 03/27/2020 03/27/2020 04/28/2020 1:[address] CoV-Risk 05/20/2020 05/20/2020 05/30/2020 1:24 AM EDT CoV-Risk Comment:Per note documentation 05/30/2020 06/02/2020 11:09 AM EDT CoV-Risk 06/05/2020 06/05/2020 06/07/2020 10:2 5 AM EDT CoV-Exposed Comment:Recent close contact documented in the COVID-19 PCR/PRO order Tested negative 07/2207/17/2020 07/17/2020 07/28/2020 8:29 AM EDT CoV-Exposed Comment:Recent close contact documented in the COVID-19 PCR/PRO order 12/03/2020 12/03/2020 12/18/2020 1:24 AM E DT COVID-19 06/22/2021 06/23/2021 07/14/2021 1:21 AM EDT Assessment Noted Time PHQ-2 Depression Total Score: 0 02/01/20 9:27 AM EST documented as of this encounter Care Teams Lawyers Relationship Specialty Start Date End Date Lilian Umana, PROCESS DEVELOPMENT ASSOCIATE [email or web address] PCP - General Family Medicine 11/02/19 01/06/20 Blair Foreman MD [address] [place] [address] [email or web address] PCP - General Internal Medicine 01/07/20 Marybeth Denton MD [address] [place] [address] [email or web address] 12/04/19 Karo Rondon NP [address] [place] [address] Obstetrics and Gynecology 12/04/19 Blair Foreman MD [address] [place] [address] [email or web address] Insurance Assigned Provider 06/21/20 02/02/21 Stephen Nelson MD [address] [place] [address] [email or web address] Primary Oncologist Medical Oncology 02/02/21 Livia Narvaez CNP [address] [place] [address] [email or web address] Nurse Practitioner Medical Oncology 07/04/21 Blair Foreman MD [address] [place] [address] [email or web address] Insurance Assigned Provider 06/18/23 Petty De La Rosa NP [address] [place] [address] [email or web address] Nurse Practitioner 08/02/24 documented as of this encounter Additional Source Comments The information contained in this document represents components of the legal health record. It is not the complete legal health record.[facility]
--- OUTSIDE RECORDS SUMMARY | 2025-01-04 12:23 | XMS_ITS | Encounter Summary ---
Author Organization [facility] Address [address] [place] [address] Phone Care Team Providers Care Door Technician Name Role Phone Marybeth Denton MD Unavailable [phone] Karo Rondon NP Unavailable [phone] Blair Foreman MD Primary Care Provider Blair Foreman MD Unavailable Stephen Nelson MD Unavailable [phone] Livia Narvaez CNP Unavailable Blair Foreman MD Unavailable [phone] Petty De La Rosa HUMANITIES TEACHER Unavailable Encounter Details Date Type Department Care Team (Late st Contact Info) Description 06/03/2020 Procedure Pass [facility], Ct Scan - [address] [address] Social History Tobacco Use Types Packs/Day Years [...] AM EST documented as of this encounter Functional Status * Calculated C-SSRS Risk Score (Lifetime/Recent) Answer Date of Assessment Author No Risk Indicated 06/03/2020 1:00 AM EDT Licha Caldwell RN * Blair Suicide Severity Rating Scale (Screener/Recent Self-Report) Question Answer Date of Assessment Author 1. Wish to be (Past 1 Month) No 021 1:00 AM RAMONT Licha Caldwell RN 2. Non-Specific Active Suici vivian Thoughts (Past 1 Month) No 06/03/2020 1:00 AM EDT Catrachito Caldwell RN 6. Suicidal Behavior (Lifetime) No 1:00 AM EDT Licha Caldwell RN documented as of this encounter Plan of Treatment Upcoming Encounters Date Type Department Care Team (Late st Contact Info) Description 01/30/2025 2:40 PM EST Infusion [facility] at [address] [address] Stephen Nelson MD [address] [place] [address] 01/31/2025 11:00 AM EST Office Visit [facility] Rheumatology [address] [place] [address] Maria Del Rosario Graham MD [address] [place] [address], [address] [place] [address] [email or web address] 02/28/2025 9:40 AM EST Infusion [facility] at [address] [address] Stephen Nelson MD [address] [place] [address] [phone] 03/28/2025 1:30 PM EST Appointment [facility] [address] [place] [address] Stephen Nelson MD [address] [place] [address] [phone] 03/28/2025 2:30 PM EST Office Visit [facility] at [address] [address] Tracy Worrell FNP 30 [place] [address] 03/28/2025 3:20 PM EST Infusion [facility] at [address] [address] Stephen Nelson MD [address] [place] [address] 06/14/2025 1:00 PM EDT Office Visit [facility] Internal Medicine 40 [place] [address] Blair Foreman MD 40 [place] [address] [email or web address] documented as of this encounter Visit Diagnoses Not on filedocumented in this encounter Additional Health Concerns Infection Onset Date Last Indicated Resolved Time CoV-Risk Comment:Per note documentation 05/30/2020 06/02/2020 11:09 [...] Noted Time PHQ-2 Depression Total Score: 0 02/28/20 9:30 AM EST documented as of this encounter Care Teams Door Technician Relationship Specialty Start Date End Date Blair Foreman MD [address] [place] [address] [email or web address] PCP - General Internal Medicine 01/07/20 Marybeth Denton MD [address] [place] [address] [email or web address] 12/04/19 Karo Rondon NP [address] [place] [address] Obstetrics and Gynecology 12/04/19 Blair Foreman MD [address] [place] [address] [email or web address] Insurance Assigned Provider 06/21/20 02/02/21 Stephen Nelson MD [address] [place] [address] [email or web address] Primary Oncologist Medical Oncology 02/02/21 Livia Narvaez CNP [address] [place] [address] Nurse Practitioner Medical Oncology 07/04/21 Blair Foreman MD [address] [place] [address] [email or web address] Insurance Assigned Provider 06/18/23 Petty De La Rosa, REINIER [address] [place] [address] [email or web address] Nurse Practitioner 08/02/24 documented as of this encounter Additional Source Comments The information contained in this document represents components of the legal health record. It is not the complete legal health record.[facility]
--- OUTSIDE RECORDS SUMMARY | 2025-01-04 12:23 | XMS_ITS | Encounter Summary ---
Author Organization [facility] Address [address] [place] [address] Phone Care Team Providers Care Electric Bath Attendant Name Role Phone Marybeth Denton MD Unavailable [phone] Karo Rondon NP Unavailable [phone] Blair Foreman MD Primary Care Provider Blair Foreman MD Unavailable Stephen Nelson MD Unavailable [phone] Livia Narvaez CNP Unavailable Blair Foreman MD Unavailable Petty De La Rosa DOCUMENTATION CLERK Unavailable [phone] Encounter Details Date Type Department Care Team (Late st Contact Info) Description 06/08/2020 Procedure Pass [address] [address] Social History Tobacco Use Types Packs/Day Years [...] Info) Description 01/30/2025 2:40 PM EST Infusion [facility] at [address] [address] Stephen Nelson MD [address] [place] [address] 01/31/2025 11:00 AM EST Office Visit [facility] Rheumatology [address] [place] [address] Maria Del Rosario Graham MD [address] [facility], [address] [place] [address] [email or web address] 02/28/2025 9:40 AM EST Infusion [facility] at [address] [address] Stephen Nelson MD [address] [place] [address] 03/28/2025 1:30 PM EST Appointment [facility] [address] [place] [address] Stephen Nelson MD [address] [place] [address] 03/28/2025 2:30 PM EST Office Visit [facility] at [address] [address] Tracy Worrell FNP [address] [place] [address] 03/28/2025 3:20 PM EST Infusion [facility] at [address] [address] Stephen Nelson MD [address] [place] [address] 06/14/2025 1:00 PM EDT Office Visit [facility] Internal Medicine [address] [place] [address] Blair Foreman MD 40 [place] [address] [email or web address] documented as of this encounter Visit Diagnoses Not on filedocumented in this encounter Additional Health Concerns Infection Onset Date Last Indicated Resolved Time CoV-Exposed Comment:Recent close contact documented in the COVID-19 PCR/PRO order Tested negative 07/2207/17/2020 07/17/2020 07/28/2020 8:29 AM EDT CoV-Exposed Comment:Recent close contact documented in the COVID-19 PCR/PRO order 12/03/2020 12/03/2020 12/18/2020 1:24 AM E DT COVID-19 06/22/2021 06/23/2021 07/14/2021 1:21 AM EDT Assessment Noted Time PHQ-2 Depression Total Score: 0 02/28/20 9:30 AM EST documented as of this encounter Care Teams Electric Bath Attendant Relationship Specialty Start Date End Date Blair Foreman MD 40 [place] [address] [email or web address] PCP - General Internal Medicine 01/07/20 Marybeth Denton MD [address] [place] [address] [email or web address] 12/04/19 Karo Rondon NP [address] [place] [address] Obstetrics and Gynecology 12/04/19 Blair Foreman MD 40 [place] [address] [email or web address] Insurance Assigned Provider 06/21/20 02/02/21 Stephen Nelson MD [address] [place] [address] Primary Oncologist Medical Oncology 02/02/21 Livia Narvaez CNP [address] [place] [address] [email or web address] Nurse Practitioner Medical Oncology 07/04/21 Blair Foreman MD 40 [place] [address] Insurance Assigned Provider 06/18/23 Petty De La Rosa NP [address] [place] [address] [email or web address] Nurse Practitioner 08/02/24 documented as of this encounter Additional Source Comments The information contained in this document represents components of the legal health record. It is not the complete legal health record.[facility]
--- OUTSIDE RECORDS SUMMARY | 2025-01-04 12:23 | XMS_ITS | Encounter Summary ---
Author Organization [facility] Address [address] [place] [address] Phone Care Team Providers Care Java J2Ee Lead Name Role Phone Marybeth Denton MD Unavailable [phone] Karo Rondon NP Unavailable Blair Foreman MD Primary Care Provider Stephen Nelson MD Unavailable [phone] Livia Narvaez CNP Unavailable Blair Foreman MD Unavailable [phone] Petty De La Rosa NP Unavailable [phone] Encounter Details Date Type Department Care Team (Late st Contact Info) Description 11/28/2022 Procedure Pass [facility], Ct Scan - [address] [address] Social History Tobacco Use Types Packs/Day Years Used Date Smoking Tobacco: Never Smokeless Tobacco: Never Alcohol Use Standard Drinks/Week Comments Yes 0 (1 standard drink = 0.6 oz pur e alcohol) 0-1 wine per week Education Answer Date Recorded Are you interested in more education? Not on abimbola e 07/08/2022 Are you concerned about learning? Not on file 07/08/2022 No 07/08/2022 No 07/08/2022 Digital Access Answer Date Recorded No 08/04/2022 No 08/04/2022 Reliable internet access at home? Not on file 08/04/2022 Device with a working camera? Not on file Comments No Sex and Gender Information Value Date Recorded Sex Assigned at Female 03/21/2017 9:38 AM EST Legal Sex Female 10:01 PM EDT Gender Identity Female 03/21/2017 9:38 AM EST Sexual Orientation Straight 03/21/2017 9: 38 AM EST documented as of this encounter Functional Status * Calculated C-SSRS Risk Score (Lifetime/Recent) Answer Date of Assessment Author No Risk Indicated 11/28/2022 9:20 AM EDT Shira Dinh RN * [place] Suicide Severity Rating Scale (Screener/Recent Self-Report) Question Answer Date of Assessment Author 1. Wish to be (Past 1 Month) No 11/28/2022 9:20 AM RAMONT Shira Dinh RN 2. Non-Specific Active Suici vivian Thoughts (Past 1 Month) No 11/28/2022 9:20 AM EDT Pam Dinh RN 6. Suicidal Behavior (Lifetime) No 9:20 AM EDT Shira Dinh RN documented as of this encounter Plan of Treatment Upcoming Encounters Date Type Department Care Team (Late st Contact Info) Description 01/30/2025 2:40 PM EST Infusion [facility] at [address] [address] Stephen Nelson MD [address] [place] [address] 01/31/2025 11:00 AM EST Office Visit [facility] Rheumatology [address] [place] [address] Maria Del Rosario Graham MD [address] [place] [address], [facility] [address] [place] [address] [email or web address] 02/28/2025 9:[address] [facility] at [address] [address] Stephen Nelson MD [address] [place] [address] 03/28/2025 1:30 PM EST Appointment [facility] [address] [place] [address] Stephen Nelson MD [address] [place] [address] 03/28/2025 2:30 PM EST Office Visit [facility] at [address] [address] Tracy Worrell FNP [address] [place] [address] 03/28/2025 3:20 PM EST Infusion [facility] at [address] [address] Stephen Nelson MD [address] [place] [address] 06/14/2025 1:00 PM EDT Office Visit [facility] Internal Medicine 40 [place] [address] Blair Foreman MD 40 [place], [place] [phone] documented as of this encounter Visit Diagnoses Not on filedocumented in this encounter Additional Health Concerns Assessment Noted Time PHQ-2 Depression Total Score: 1 03/18/19 23 2:56 PM EST documented as of this encounter Care Teams Java J2Ee Lead Relationship Specialty Start Date End Date Blair Foreman MD [address] [place] [address] [phone] PCP - General Internal Medicine 01/07/20 Marybeth Denton MD [address] [place] [address] [email or web address] 12/04/19 Karo Rondon NP [address] [place] [address] Obstetrics and Gynecology 12/04/19 Stephen Nelson MD [address] [place] [address] [email or web address] Primary Oncologist Medical Oncology 02/02/21 Livia Narvaez CNP [address] [place] [address] [email or web address] Nurse Practitioner Medical Oncology 07/04/21 Blair Foreman MD [address] [place] [address] [email or web address] Insurance Assigned Provider 06/18/23 Petty De La Rosa NP [address] [place] [address] [email or web address] Nurse Practitioner 08/02/24 documented as of this encounter Additional Source Comments The information contained in this document represents components of the legal health record. It is not the complete legal health record.[facility]
--- OUTSIDE RECORDS SUMMARY | 2025-01-04 12:23 | XMS_ITS | Encounter Summary ---
Author Organization [facility] Address [address] [place] [address] Phone Care Team Providers Care Photographic Aide Name Role Phone Marybeth Denton MD Unavailable Karo Rondon NP Unavailable [phone] Blair Foreman MD Primary Care Provider Blair Foreman MD Unavailable Stephen Nelson MD Unavailable [phone] Livia Narvaez CNP Unavailable Blair Foreman MD Unavailable [phone] Petty De La Rosa TYPE PHOTOGRAPHY SUPERVISOR Unavailable Encounter Details Date Type Department Care Team (Late st Contact Info) Description 06/05/2020 Procedure Pass [facility] [address] [place] [address] Social History Tobacco Use Types Packs/Day Years [...] Info) Description 01/30/2025 2:40 PM EST Infusion [facility] at [address] [address] Stephen Nelson MD [address] [place] [address] 01/31/2025 11:00 AM EST Office Visit [facility] Rheumatology [address] [place] [address] Maria Del Rosario Graham MD 22 [facility], [address] [place] [address] [email or web address] 02/28/2025 9:40 AM EST Infusion [facility] [place] at [address] [address] Stephen Nelson MD [address] [place] [address] 03/28/2025 1:30 PM EST Appointment [facility] [address] [place] [address] Stephen Nelson MD [address] [place] [address] 03/28/2025 2:30 PM EST Office Visit [facility] at [address] [address] Tracy Worrell FNP [address] [place] [address] 03/28/2025 3:20 PM EST Infusion [facility] [place] at [address] [address] Stephen Nelson MD [address] [place] [address] 06/14/2025 1:00 PM EDT Office Visit [facility] Internal Medicine [address] [place] [address] Blair Foreman MD [address] [place] [address] [email or web address] documented as of this encounter Visit Diagnoses Not on filedocumented in this encounter Additional Health Concerns Infection Onset Date Last Indicated Resolved Time CoV-Risk 06/05/2020 06/05/2020 06/07/2020 10:2 5 AM [...] documented as of this encounter Care Teams Photographic Aide Relationship Specialty Start Date End Date Blair Foreman MD [address] [place] [address] [email or web address] PCP - General Internal Medicine 01/07/20 Marybeth Denton MD [address] [place] [address] [email or web address] Medical Oncology 12/04/19 Karo Rondon NP [address] [place] [address] Obstetrics and Gynecology 12/04/19 Blair Foreman MD [address] [place] [address] Insurance Assigned Provider 06/21/20 02/02/21 Stephen Nelson MD [address] [place] [address] Primary Oncologist Medical Oncology 02/02/21 Livia Narvaez CNP [address] [place] [address] Nurse Practitioner Medical Oncology 07/04/21 Blair Foreman MD [address] [place] [address] Insurance Assigned Provider 06/18/23 Petty De La Rosa NP [address] [place] [address] [email or web address] Nurse Practitioner 08/02/24 documented as of this encounter Additional Source Comments The information contained in this document represents components of the legal health record. It is not the complete legal health record.[facility]
--- OUTSIDE RECORDS SUMMARY | 2025-01-04 12:23 | XMS_ITS | Encounter Summary ---
Author Organization [facility] Address [address] [place] [address] Phone Care Team Providers Care Developer Programmer Analyst Name Role Phone Marybeth Denton MD Unavailable Karo Rondon NP Unavailable Blair Foreman MD Primary Care Provider [phone] Blair Foreman MD Unavailable [phone] Stephen Nelson MD Unavailable [phone] Livia Narvaez CNP Unavailable Blair Foreman MD Unavailable Petty De La Rosa CUSTOMER EXPERIENCE ASSOCIATE Unavailable [phone] Encounter Details Date Type Department Care Team (Late st Contact Info) Description 06/04/2020 Procedure Pass [facility] Cardiovascular And Interventional Radiology [address] [place] [address] Social History Tobacco Use Types Packs/Day Years [...] Info) Description 01/30/2025 2:40 PM EST Infusion [facility] [place] at [address] [address] tSephen Nelson MD [address] [place] [address] 01/31/2025 11:00 AM EST Office Visit [facility] Rheumatology [address] [place] [address] Maria Del Rosario Graham MD 22 [facility], [address] [place] [address] [email or web address] 02/28/2025 9:40 AM EST [facility]fusion [facility] at [address] [address] Stephen Nelson MD [address] [place] [address] 03/28/2025 1:30 PM EST Appointment [facility] [address] [place] [address] Stephen Nelson MD [address] [place] [address] 03/28/2025 2:30 PM EST Office Visit [facility] [place] at [address] [address] Tracy Worrell FNP [address] [place] [address] 03/28/2025 3:20 PM EST Infusion [facility] at [address] [address] Stephen Nelson MD [address] [place] [address] [email or web address] 06/14/2025 1:00 PM EDT Office Visit [facility] Internal Medicine [address] [place] [address] Blair Foreman MD 40 [place] [address] [email or web address] documented as [...] Time PHQ-2 Depression Total Score: 0 02/28/20 20 9:30 AM EST documented as of this encounter Care Teams Developer Programmer Analyst Relationship Specialty Start Date End Date Blair Foreman MD [address] [place] [address] [email or web address] PCP - General Internal Medicine 01/07/20 Marybeth Denton MD [address] [place] [address] [email or web address] Medical Oncology 12/04/19 Karo Rondon NP [address] [place] [address] Obstetrics and Gynecology 12/04/19 Blair Foreman MD [address] [place] [address] Insurance Assigned Provider 06/21/20 02/02/21 Stephen Nelson MD [address] [place] [address] Primary Oncologist Medical Oncology 02/02/21 Livia Narvaez CNP [address] [place] [address] Nurse Practitioner Medical Oncology 07/04/21 Blair Foreman MD [address] [place] [address] Insurance Assigned Provider 06/18/23 Petty De La Rosa, REINIER [address] [place] [address] [email or web address] Nurse Practitioner 08/02/24 documented as of this encounter Additional Source Comments The information contained in this document represents components of the legal health record. It is not the complete legal health record.[facility]
--- OUTSIDE RECORDS SUMMARY | 2025-01-04 12:23 | XMS_ITS | Encounter Summary ---
Author Organization [facility] Address [address] [place] [address] Phone Care Team Providers Care Human Resources Benefits Administrator Name Role Phone Marybeth Denton MD Unavailable [phone] Karo Rondon NP Unavailable Blair Foreman MD Primary Care Provider Stephen Nelson MD Unavailable [phone] Livia Narvaez CNP Unavailable Blair Foreman MD Unavailable Petty De La Rosa NP Unavailable Encounter Details Date Type Department Care Team (Late st Contact Info) Description 12/19/2023 Procedure Pass [facility], Ct Scan - [address] [address] Social History Tobacco Use Types Packs/Day Years Used Date Smoking Tobacco: Never Smokeless Tobacco: Never Alcohol Use Standard Drinks/Week Comments Yes 1 (1 standard drink = 0.6 oz pur e alcohol) 1 wine per week Education Answer Date Recorded [...] as food, clothing, or medical care? No 12/18/2023 In the past 12 months have y ou been in a relationship with a person who hurts, threatens, or tries to control you? No 12/18/2023 Are you denied basic needs s uch as food, clothing, or medical care? No 12/18/2023 In the past 12 months have y ou been in a relationship with a person who hurts, threatens, or tries to control you? No 12/18/2023 Comments No Sex and Gender Information Value Date Recorded Sex Assigned at Female 03/21/2017 9:38 AM EST Legal Sex Female 10:01 PM EDT Gender Identity Female 03/21/2017 9:38 AM EST Sexual Orientation Straight 03/21/2017 9: 38 AM EST documented as of this encounter Plan of Treatment Upcoming Encounters Date Type Department Care Team (Late st Contact Info) Description 01/30/2025 2:40 PM EST Infusion [facility] at [address] [address] Stephen Nelson MD [address] [place] [address] [email or web address] 01/31/2025 11:00 AM EST Office Visit [facility] Rheumatology [address] [place] [address] Maria Del Rosario Graham MD [address] [place] [address], [address] [place] [address] [email or web address] 02/28/2025 9:40 AM EST Infusion [facility] at [address] [address] Stephen Nelson MD [address] [place] [address] 03/28/2025 1:30 PM EST Appointment [facility] 30 [place] [address] Stephen Nelson MD 30 [place] [address] 03/28/2025 2:30 PM EST Office Visit [facility] at [address] [address] Tracy Worrell FNP 30 [place] [address] 03/28/2025 3:20 PM EST Infusion [facility] at [address] [address] Stephen Nelson MD [address] [place] [address] 06/14/2025 1:00 PM EDT Office Visit [facility] Internal Medicine [address] [place] [address] Blair Foreman MD 40 [place] [address] documented as of this encounter Visit Diagnoses Not on filedocumented in this encounter Additional Health Concerns Assessment Noted Time PHQ-2 Depression Total Score: 0 03/28/19 24 3:26 PM EST documented as of this encounter Care Teams Human Resources Benefits Administrator Relationship Specialty Start Date End Date Blair Foreman MD [address] [place] [address] PCP - General Internal Medicine 01/07/20 Marybeth Denton MD [address] [place] [address] [email or web address] 12/04/19 Karo Rondon NP [address] [place] [address] Obstetrics and Gynecology 12/04/19 Stephen Nelson MD [address] [place] [address] [email or web address] Primary Oncologist Medical Oncology 02/02/21 Livia Narvaez CNP [address] [place] [address] [email or web address] Nurse Practitioner Medical Oncology 07/04/21 Blair Foreman MD [address] [place] [address] [email or web address] Insurance Assigned Provider 06/18/23 Petty De La Rosa NP [address] [place] [address] [email or web address] Nurse Practitioner 08/02/24 documented as of this encounter Additional Source Comments The information contained in this document represents components of the legal health record. It is not the complete legal health record.[facility]
--- OUTSIDE RECORDS SUMMARY | 2025-01-04 12:23 | XMS_ITS | Encounter Summary ---
Author Organization [facility] Address [address] [place] [address] Phone Care Team Providers Care Production Mechanic Name Role Phone Marybeth Denton MD Unavailable Karo Rondon NP Unavailable Blair Foreman MD Primary Care Provider Blair Foreman MD Unavailable [phone] Stephen Nelson MD Unavailable [phone] Livia Narvaez CNP Unavailable Blair Foreman MD Unavailable [phone] Petty De La Rosa TOP KNITTER Unavailable Encounter Details Date Type Department Care Team (Late st Contact Info) Description 06/03/2020 Procedure Pass [facility], Ct Scan - [address] [address] Social History Tobacco Use Types Packs/Day Years [...] 1:00 AM EDT Licha Caldwell RN * [place] Suicide Severity Rating Scale (Screener/Recent Self-Report) Question [...] Info) Description 01/30/2025 2:40 PM EST [facility] at [address] [address] Stephen Nelson MD [address] [place] [address] 01/31/2025 11:00 AM EST Office Visit [facility] Rheumatology [address] [place] [address] Maria Del Rosario Graham MD [address] [place] [address], [address] [place] [address] [email or web address] 02/28/2025 9:40 AM EST Infusion [facility] at [address] [address] Stephen Nelson MD [address] [place] [phone] 03/28/2025 1:30 PM EST Appointment [facility] [address] [place] [address] Stephen Nelson MD [address] [place] [address] [phone] 03/28/2025 2:30 PM EST Office Visit [facility] at [address] [address] Tracy Worrell FNP [address] [place] [address] 03/28/2025 3:20 PM EST Infusion [facility] at [address] [address] Stephen Nelson MD [address] [place] [address] 06/14/2025 1:00 PM EDT Office Visit [facility] Internal Medicine 40 [place] [address] Blair Foreman MD [address] [place] [address] [email or web address] documented as of this encounter Visit Diagnoses [...] documented as of this encounter Care Teams Production Mechanic Relationship Specialty Start Date End Date Blair Foreman MD [address] [place] [address] [email or web address] PCP - General Internal Medicine 01/07/20 Marybeth Denton MD [address] [place] [address] [email or web address] 12/04/19 Karo Rondon NP [address] [place] [address] Obstetrics and Gynecology 12/04/19 Blair Foreman MD [address] [place] [phone] [email or web address] Insurance Assigned Provider 06/21/20 02/02/21 Stephen Nelson MD [address] [place] [address] [email or web address] Primary Oncologist Medical Oncology 02/02/21 Lviia Narvaez CNP [address] [place] [address] Nurse Practitioner Medical Oncology 07/04/21 Blair Foreman MD [address] [place] [address] [email or web address] Insurance Assigned Provider 06/18/23 Petty De La Rosa, REINIER [address] [place] [address] [email or web address] Nurse Practitioner 08/02/24 documented as of this encounter Additional Source Comments The information contained in this document represents components of the legal health record. It is not the complete legal health record.[facility]
--- OUTSIDE RECORDS SUMMARY | 2025-01-04 12:23 | XMS_ITS | Clinical Summary ---
Author Organization [facility] Address [address] [place] [address] Phone Care Team Providers Care Sole Scraper Name Role Phone Marybeth Denton MD Unavailable Karo Rondon NP Unavailable Blair Foreman MD Primary Care Provider [phone] Stephen Nelson MD Unavailable [phone] BriceJoseen BASE LOADER Unavailable Blair Foreman MD Unavailable Petty De La Rosa INSPECTOR FABRIC Unavailable Allergies Active Allergy Reactions Criticality Noted Date Comments Carvedilol Other (See Comments),Cough,Fat igue Low 12/04/2019 Fatigue cough and dyspnea Olsalazine 01/20/2017 dehydrated Fluconazole 03/20/2021 Other reaction(s): dehydration Gabapentin Fatigue Low 05/22/2020 Severe fatigue Iodinated Contrast Media Rash Medium 12/19/2023 Developed diffuse itchy rash after a CT scan with contrast to evaluate Abd pain Losartan Fatigue Low 12/04/2019 Sick to stomach fatigue and dizziness Pantoprazole GI Upset 12/23/2020 naUSEAU AND GASSY Sulfa (Sulfonamide Antibiotics) High 01/20/2017 Low white count Medications multivitamins capsule Take 1 capsule by mouth daily. Active zinc 50 mg Tab tablet Take 50 mg by mouth daily. Active bacillus coagulans-inulin 1 billion-250 cell-mg Cap Take 250 mg by mouth every evening. Active LORazepam (ATIVAN) 1 MG tablet Take 0.5 mg by mouth nightly at bedtime. 08/07/19 Active ostomy supplies (ARLEN-FIT NATURA DRAINABLE POUCH) 1 3/4 MiscIndications:E ncounter for ostomy care education 1 Box by Miscellaneous route as directed. 1 each 10/07/19 Active ostomy supplies MiscIndications:E ncounter for ostomy care education 1 each by Miscellaneous route as directed. [facility] Arlen-Fit Natura Moldable Durahesive skin barrier with hydrocolloid flexible collar -03/17 in. 22-33mm ref# [id number] 1 each 10/07/19 Active ostomy supplies MiscIndications:E ncounter for ostomy care education 1 each by Miscellaneous route as directed. Sergio Skin Barrier Rings 03/29 thickness-diamet er 2 1 each 10/07/19 Active ostomy supplies MiscIndications:E ncounter for ostomy care education 1 each by Miscellaneous route as directed. Safe 'n Simple No Sting Skin Barrier Film Wipes 1 each 10/07/19 Active ostomy supplies MiscIndications:E ncounter for ostomy care education 1 each by Miscellaneous route as directed. [facility] Protective Skin Barrier and Filler ref#[id number] 1 each 10/07/19 Active glucosamine 500 mg Cap Take 1,500 mg by mouth daily. Active cod liver oil Cap Take 1 capsule by mouth daily with dinner. 230mg Active coenzyme Q10 100 mg capsule Take 100 mg by mouth Every Afternoon. Active nystatin (NYSTOP) powder Apply 1 application topically 2 (two) times a week. 04/20/19 Active COLLAGEN MISC Take 2,250 mg by mouth Every Afternoon. Active cyanocobalamin, vitamin B-12, (VITAMIN B-12 SL) Place 2,000 mcg under the tongue every morning. Active cholecalciferol (VITAMIN D3) 25 MCG (1,000 unit) tablet Take 1,000 Units by mouth 2 (two) times a day. Active Medication-Free Text FASLODEX ONCE A MONTH [facility] Active SYNTHROID 88 mcg tablet TAKE 1 TABLET EVERY MORNING 90 tablet 3 12/02/20 24 Active metoprolol tartrate (LOPRESSOR) 25 MG tabletIndications :Essential hypertension TAKE ONE TABLET BY MOUTH TWO TIMES A DAY 60 tablet 11 05/29/19 25 Active Medication-Free Text Left arm ready to Wear Compression Sleeve 20-30 MM HG Refills 2 every 6 months for Life ICD-10 code I89.0 Arm lymphedema in the setting of breast Cancer ( Consider Zina Strong as the fabric will provide more support in the upper arm) 1 Unspecified 2 06/21/19 25 Active Medication-Free Text Left hand Ready to wear Compression gloves 20-30 MM Hg Refills 2 every 6 months for life ICD-10 code I89.0 Arm lymphedema in the setting of breast Cancer ( Consider Zina Strong as the fabric will provide more support in the upper arm) 1 Unspecified 2 06/21/19 25 Active anastrozole (ARIMIDEX) 1 mg tablet Take 1 tablet (1 mg total) by mouth nightly at bedtime. 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 Except on mondays 180 tablet 3 10/18/19 25 Active nystatin (NYSTOP) powderIndications :Ileostomy in place Apply externally on abdomen twice a week 30 g 3 10/20/19 25 Active rosuvastatin (CRESTOR) 5 MG tabletIndications :Mixed hyperlipidemia TAKE ONE TABLET BY MOUTH EVERY DAY 30 tablet 11 10/23/19 25 Active amLODIPine (NORVASC) 10 MG tabletIndications :Essential hypertension Take 0.5 tablets (5 mg total) by mouth 2 (two) times a day. 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 360 tablet 12/04/19 25 Active METHOTREXATE 2.5 MG Oral tabletIndications :Adult Still's disease,Methotrex ate, correction, current use TAKE 4 TABLETS BY MOUTH EVERY 7 DAYS 16 tablet 1 12/04/19 25 Active methotrexate 2.5 MG Oral tabletIndications :Adult Still's disease Take 5 tabs every 7 days 20 tablet 2 12/06/19 25 Active Active Problems Patient Care Coordination No te Formatting of this note migh t be different from the original. Height 174.1cm no shoes 2/ Problem Noted Date Diagnosed Date Multiple allergies 10/17/2024 Assessment & Plan (10/17/2024 6:55 PM EDT): Currently being tested for leaves & grasses to finalize appropriate desensitization accordingly. On statin therapy 10/17/2024 Assessment & Plan (10/17/2024 6:59 PM EDT): Monitor for muscle tenderness, swelling and weakness 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, correction, current use 10/17/2024 Assessment & Plan (10/17/2024 [...] at least every 3 months-standing orders in [facility]. Refrain from drinking alcohol while taking methotrexate. Make sure to inform any new CAMILLE ARSHAD, INSPECTOR FABRIC about chronic therapy with methotrexate particularly in [...] to help with inflammation and refer to [facility] general surgery for further evaluation. Patient notes understanding, [facility] general surgery referral placed. Gastroesophageal reflux dise [...] dermatology consult if not better or worse. 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 I have explained to her benefits [...] months with prior monitoring labs-standing orders in [facility]. I have explained to her benefits [...] monitoring labs prior to it-standing orders in [facility]. Call if problems or questions in [...] labs prior to it- standing orders in [facility]. Assessment & Plan (05/26/2021 9:35 AM [...] labs prior to it- standing orders in [facility]. Assessment & Plan (03/12/2021 3:16 PM [...] like her to be seen by a clerical grader within 8 to 9 weeks. Previous lab [...] of this 31-minute visit was spent in [id number] conversation with the patient and her present. [...] the guidance issued by the [employer] (May) and the FDA (May 12, 2019). This test has not been FDA cleared or approved but is being run under the FDAs Emergency Use Authorization (EUA) mechanism. This test was validated for dry nasal swabs. Method: RNA is isolated from respiratory specimens using COGEON-96 Viral RNA Isolation Kits (MasterImage 3D); RNA is reverse transcribed to cDNA, and subsequently ampli fied in a Real-Time PCR Instrument (Applied GRR Systems ViiA7). This system provides qualitative detection of nucleic acid from SARS-CoV-2. For more detailed information on the test methods and limitations as well as for Fact Sheets for both Patients and Healthcare providers see https://broad.io/pbtie13jnsv-cchdynjpoq9. Positive results are indicative of active infection [...] and its perform ance characteristics determined by [facility] in a manner consistent with CLIA requirements. [...] Mariana sequencing of JAK2, exons 12-15 (see [facility] Interpretive Handbook for method details). The sensitivity of this assay is approximately 20%, such that samples containing lower percentages of mutated nucleic acid will appear negative. The reference gene transcript used for variant annotation is: GRCh37(hg19)[id number]. This test was developed and its performance characteristics determined by [facility] in a manner consistent with CLIA requirements. [...] developed and its performance characteristics determined by [facility] in a manner consistent with CLIA requirements. [...] of this 32-minute visit was spent in uohv-cw-lblt conversation with the patient and her . [...] the guidance issued by the [employer] (May) and the FDA (May 12, 2019). This test has not been FDA cleared or approved but is being run under the FDAs Emergency Use Authorization (EUA) mechanism. This test was validated for dry nasal swabs. Method: RNA is isolated from respiratory specimens using COGEON-96 Viral RNA Isolation Kits (MasterImage 3D); RNA is reverse transcribed to cDNA, and subsequently ampli fied in a Real-Time PCR Instrument (Applied GRR Systems ViiA7). This system provides qualitative detection of nucleic acid from SARS-CoV-2. For more detailed information on the test methods and limitations as well as for Fact Sheets for both Patients and Healthcare providers see https://broad.io/ggegl82fwgl-[email or web address]. Positive results are indicative of active infection [...] and its perform ance characteristics determined by [facility] in a manner consistent with CLIA requirements. [...] extracted and converted to cDNA, followed by Bude sequencing of JAK2, exons 12-15 (see [facility] Interpretive Handbook for method details). The sensitivity of this assay is approximately 20%, such that samples containing lower percentages of mutated nucleic acid will appear negative. The reference gene transcript used for variant annotation is: GRCh37(hg19)[id number]. This test was developed and its performance characteristics determined by [facility] in a manner consistent with CLIA requirements. [...] developed and its performance characteristics determined by [facility] in a manner consistent with CLIA requirements. [...] the guidance issued by the [employer] [place] (May) and the FDA (May 12, 2019). This test has not been FDA cleared or approved but is being run under the FDA's Emergency Use Authorization (EUA) mechanism. This test was validated for dry nasal swabs. Method: RNA is isolated from respiratory specimens using COGEON-96 Viral RNA Isolation Kits (MasterImage 3D); RNA is reverse transcribed to cDNA, and subsequently ampl ified in a Real-Time PCR Instrument (Applied GRR Systems ViiA7). This system provides qualitative detection of nucleic acid from SARS-CoV-2. For more detailed information on the test methods and limitations as well as for Fact Sheets for both Patients and Healthcare providers see https://sites.broadinstitute.org/jrwn-brg-dqtsxl/cjf-xnhw-npxeq-19-sandy ti ng-work-0 Positive results are indicative of [...] Final Atrial Rate 05/23/2020 73 BPM Final [place] Interval 05/23/2020 156 ms Final QRS Duration 05/23/2020 84 ms Final QT Interval 05/23/2020 382 ms Final QTC Interval 05/23/2020 420 ms Final P Milton 05/23/2020 49 degrees Final R Wave [place] 05/23/2020 57 degrees Final T Wave [place] 05/23/2020 20 degrees Final Hospital Outpatient Visit [...] the guidance issued by the [employer] (May) and the FDA (May 12, 2019). This test has not been FDA cleared or approved but is being run under the FDA's Emergency Use Authorization (EUA) mechanism. This test was validated for dry nasal swabs. Method: RNA is isolated from respiratory specimens using COGEON-96 Viral RNA Isolation Kits (MasterImage 3D); RNA is reverse transcribed to cDNA, and subsequently ampl ified in a Real-Time PCR Instrument (Applied Mass RootsA7). This system provides qualitative detection of nucleic acid from SARS-CoV-2. For more detailed information on the test methods and limitations as well as for Fact Sheets for both Patients and Healthcare providers see https://sites.broadTrekkSofttitute.org/qpvy-dpo-dqvbkp/zsi-jdei-rktrs-19-sandy ti ng-work-0 Positive results are indicative of [...] the guidance issued by the [employer] (May) and the FDA (May 12, 2019). This test has not been FDA cleared or approved but is being run under the FDA's Emergency Use Authorization (EUA) mechanism. This test was validated for dry nasal swabs. Method: RNA is isolated from respiratory specimens using COGEON-dINK Viral RNA Isolation Kits (MasterImage 3D); RNA is reverse transcribed to cDNA, and subsequently ampl ified in a Real-Time PCR Instrument (Applied Mass RootsA7). This system provides qualitative detection of nucleic acid from SARS-CoV-2. For more detailed information on the test methods and limitations as well as for Fact Sheets for both Patients and Healthcare providers see https://sites.[email or web address]/gmgx-ccx-owrydd/ort-xyde-fjwdf-19-sandy ti ng-work-0 Positive results are indicative of [...] Final Atrial Rate 05/23/2020 73 BPM Final [place] Interval 05/23/2020 156 ms Final QRS Duration 05/23/2020 84 ms Final QT Interval 05/23/2020 382 ms Final QTC Interval 05/23/2020 420 ms Final P Milton 05/23/2020 49 degrees Final R Wave [place] 05/23/2020 57 degrees Final T Wave [place] 05/23/2020 20 degrees Final Hospital Outpatient Visit [...] the guidance issued by the [employer] (May) and the FDA (May 12, 2019). This test has not been FDA cleared or approved but is being run under the FDA's Emergency Use Authorization (EUA) mechanism. This test was validated for dry nasal swabs. Method: RNA is isolated from respiratory specimens using COGEON-96 Viral RNA Isolation Kits (MasterImage 3D); RNA is reverse transcribed to cDNA, and subsequently ampl ified in a Real-Time PCR Instrument (Applied GRR Systems ViiA7). This system provides qualitative detection of nucleic acid from SARS-CoV-2. For more detailed information on the test methods and limitations as well as for Fact Sheets for both Patients and Healthcare providers see https://sites.broadinstitute.org/uyuo-mvx-wigfar/pgp-ucok-osvyi-19-sandy ti ng-work-0 Positive results are indicative of [...] the guidance issued by the [employer] [place] (May 31, 2019) and the FDA [...] from respiratory specimens in approved media using COGEON-96 Viral RNA Isolation Kits (D[employer], [id number]), is reverse transcribed to cDNA, and subsequently am plified in the Applied Biosystems ViiA7 Real-Time PCR Instrument. This system provides qualitative detection of nucleic acid from SARS-CoV-2. For more detailed information on the test methods and limitations see https://ghave-87-jips-info.broadinstitute.org/ Positive results are indicative of active infection [...] the guidance issued by the [employer] (May) and the FDA (May 12, 2019). This test has not been FDA cleared or approved but is being run under the FDA's Emergency Use Authorization (EUA) mechanism. This test was validated for dry nasal swabs. Method: RNA is isolated from respiratory specimens using COGEON-dINK Viral RNA Isolation Kits (MasterImage 3D); RNA is reverse transcribed to cDNA, and subsequently ampl ified in a Real-Time PCR Instrument (Applied GRR Systems ViiA7). This system provides qualitative detection of nucleic acid from SARS-CoV-2. For more detailed information on the test methods and limitations as well as for Fact Sheets for both Patients and Healthcare providers see https://sites.broadinstitute.org/wftz-tnc-lnvrzs/bog-dwmm-bgwth-19-sandy ti ng-work-0 Positive results are indicative of [...] Final Atrial Rate 05/23/2020 73 BPM Final [place] Interval 05/23/2020 156 ms Final QRS Duration 05/23/2020 84 ms Final QT Interval 05/23/2020 382 ms Final QTC Interval 05/23/2020 420 ms Final P Milton 05/23/2020 49 degrees Final R Wave [place] 05/23/2020 57 degrees Final T Wave [place] 05/23/2020 20 degrees Final Hospital Outpatient Visit [...] the guidance issued by the [employer] (May) and the FDA (May 12, 2019). This test has not been FDA cleared or approved but is being run under the FDA's Emergency Use Authorization (EUA) mechanism. This test was validated for dry nasal swabs. Method: RNA is isolated from respiratory specimens using COGEON-96 Viral RNA Isolation Kits (MasterImage 3D); RNA is reverse transcribed to cDNA, and subsequently ampl ified in a Real-Time PCR Instrument (Applied Mass RootsA7). This system provides qualitative detection of nucleic acid from SARS-CoV-2. For more detailed information on the test methods and limitations as well as for Fact Sheets for both Patients and Healthcare providers see https://sites.broadTrekkSofttitute.org/isnv-sjz-qbcufl/bon-wyax-cltre-19-sandy ti ng-work-0 Positive results are indicative of [...] the guidance issued by the [employer] (May 31, 2019) and the FDA [...] from respiratory specimens in approved media using COGEON-96 Viral RNA Isolation Kits ([employer] Merrill [employer], [id number]), is reverse transcribed to cDNA, and subsequently am plified in the Applied Biosystems ViiA7 Real-Time PCR Instrument. This system provides qualitative detection of nucleic acid from SARS-CoV-2. For more detailed information on the test methods and limitations see https://qmmwa-36-rowr-info.broadinstitute.org/ Positive results are indicative of active infection [...] palliative care referral as an outpatient through [facility]. Pleural effusion 06/02/2020 Assessment & Plan (06/11/2020 [...] continues close follow-up with ostomy nurse and driver service technician as scheduled. Assessment & Plan (05/13/2024 12:03 PM EST): She continues close follow-up with ostomy nurse and driver service technician as scheduled. Mixed hyperlipidemia 01/20/2017 Postoperative hypothyroidism 01/20/2017 Resolved Problems Problem Noted Date Diagnosed Date Resolved Date Acquired hypothyroidism 01/20/20170 11/2016 Rash 06/08/2020 Arthralgia 06/08/2020 Encounters Date Type Department Care Team Description 01/04/2025 8:48 AM EDT Hospital Encounter [facility] Laboratory [address] [place] [id number] Maria Del Rosario Graham MD 01/02/2025 10:00 AM EDT Infusion [facility] at [address] [address] Stephen Nelson MD Malignant neoplasm of right female breast, unspecified estrogen receptor status, unspecified site of breast (Primary Dx) 01/02/2025 9:00 AM EDT Office Visit [facility] at [address] [address] Stephen Nelson MD Lobular carcinoma of right breast, stage 4 (Primary Dx); 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, 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, 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; Adult Still's disease 01/02/2025 7:47 AM EDT - 01/02/2025 11:59 PM EDT Hospital Encounter [facility] Laboratory [address] [place] [address] Stephen Nelson MD Arrived Discharge Disposition: Home or Self Care 01/02/2025 Orders Only [facility] Rheumatology [address] [place] [address] Maria Del Rosario Graham MD 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 (Primary Dx) 12/26/2024 Orders Only [facility] at [address] [address] Yuliana Lee CMA Lobular carcinoma of right breast, stage 4 (Primary Dx) 12/22/2024 Orders Only [facility] Rheumatology [address] [place] [address] Maria Del Rosario Graham MD 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 (Primary Dx); Adult Still's disease 12/05/2024 Orders Only [facility] Rheumatology [address] [place] [address] Maria Del Rosario Graham MD Adult Still's disease (Primary Dx) 12/05/2024 Telephone [facility] at [address] [address] Stephen Nelson MD Appt R/s 12/03/2024 10:55 AM EDT - 12/03/2024 11:59 PM EDT Hospital Encounter [facility] Laboratory [address] [place] [address] Maria Del Rosario Graham MD Discharge Disposition: Home or Self Care 12/03/2024 9:30 AM EDT Office Visit [facility] Internal Medicine [address] [place] [address] Blair Foreman MD Need for prophylactic vaccination and inoculation against influenza (Primary Dx); Impaired fasting glucose; Postoperative hypothyroidism 12/03/2024 Refill [facility] Rheumatology [address] [place] [address] [place] [address] Maria Del Rosario Graham MD Medication Refill 11/30/[address] [place] [address] Maria Del Rosario Graham MD Message to Provider 11/29/2024 3:40 PM EDT Infusion [facility] at [address] [address] Stephen Nelson MD Malignant neoplasm of right female breast, unspecified estrogen receptor status, unspecified site of breast (Primary Dx) 11/29/2024 2:15 PM EDT - 11/29/2024 11:59 PM EDT Hospital Encounter [facility] Laboratory [address] [place] [address] Stephen Nelson MD Discharge Disposition: Home or Self Care 11/28/2024 Orders Only [facility] at [address] [address] Angeles Fairbanks [place] Lobular carcinoma of right breast, stage 4 (Primary Dx) 11/19/2024 Refill [facility] Internal Medicine [address] [place] [address] Blair Foreman MD Medication Refill 11/01/2024 2:20 PM EDT Infusion [facility] at [address] [address] Stephen Nelson MD Malignant neoplasm of right female breast, unspecified estrogen receptor status, unspecified site of breast (Primary Dx) 11/01/2024 1:02 PM EDT - 11/01/2024 11:59 PM EDT Hospital Encounter [facility] Laboratory [address] [place] [address] Stephen Nelson MD Discharge Disposition: Home or Self Care 10/31/2024 Orders Only [facility] at [address] [address] Britni Freeman Lobular carcinoma of right breast, stage 4 (Primary Dx) 10/29/2024 1:14 PM EDT - 10/29/2024 11:59 PM EDT Hospital Encounter [facility] Laboratory [address] [place] [address] Blair Foreman MD Discharge Disposition: Home or Self Care 10/25/2024 Telephone [facility] Internal Medicine [address] [place] [address] Blair Foreman MD Labs 10/22/2024 Refill [facility] Internal Medicine [address] [place] [address] Blair Foreman MD Medication Refill 10/17/2024 1:54 PM EDT - 10/17/2024 11:59 PM EDT Hospital Encounter [facility] Laboratory [address] [place] [address] Maria Del Rosario Graham MD Discharge Disposition: Home or Self Care 10/17/2024 1:00 PM EDT Office Visit [facility] Rheumatology [address] [place] [address] Maria Del Rosario Graham MD Adult Still's disease (Primary Dx); Ileostomy in place; History of Graves' disease; History of ulcerative colitis; 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; Lobular carcinoma of right breast, stage 4; 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, 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, 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; Multiple allergies; Age-related osteoporosis without current pathological fracture; On statin therapy 10/17/2024 Refill [facility] Internal Medicine [address] [place] [address] Blair Foreman MD Medication Refill 10/14/2024 Refill [facility] Rheumatology [address] [place] [address] Maria Del Rosario Graham MD Medication Refill 10/10/2024 Telephone [facility] at [address] [address] Stephen Nelson MD 10/04/2024 10:40 AM EDT Infusion [facility] at [address] [address] Stephen Nelson MD Gleason, Aileen Marie, RN Malignant neoplasm of right female breast, unspecified estrogen receptor status, unspecified site of breast (Primary Dx) 10/04/2024 9:30 AM EDT Office Visit [facility] [address] [address] Livia Narvaez CNP Lobular carcinoma of right breast, stage 4 (Primary Dx); alf (current) use of aromatase inhibitors; alf (current) use of other agents affecting estrogen receptors and estrogen levels; Osteoporosis, unspecified osteoporosis type, unspecified pathological fracture presence 10/04/2024 8:11 AM EDT - 10/04/2024 11:59 PM EDT Hospital Encounter [facility] [address] [place] [address] Stephen Nelson MD Discharge Disposition: Home or Self Care from Last 3 Months Immunizations Immunization Administration Dates Next Due INFLUENZA, SPLIT VIRUS, TRIV ALENT W/ PRESERVATIVE IM 11/13/2010,12/29/2005 Influenza, whole 12/17/2009,12/12/2008, 7 Td, unspecified formulation 06/02/2000 Tdap 11/13/2010 Family History Medical History Relation Comments No Known Problems Daughter 1 No Known Problems Daughter 2 CV disease Father Atrial fibrillation Mother Bone cancer Mother Breast cancer Mother CV disease Mother Relation Status Comments Daughter 1 Alive Daughter 2 Alive Father Mother (Age 90) Hx of breast c ancer and now with bone cancer Social History Tobacco Use Types Packs/Day Years Used Date Smoking Tobacco: Never Smokeless Tobacco: Never Tobacco Cessation:Counseling Given: Not Answered Alcohol Use Standard Drinks/Week Comments Not Currently [...] Orientation Straight 03/21/2017 9: 38 AM EST Last Filed Vital Signs Vital Sign Reading Time Taken Comments Blood Pressure 146/84 01/02/2025 9:02 AM EDT Pulse 90 01/02/2025 9:02 AM EDT Temperature 36.4 C (97.5 F) 01/02/2025 9:02 AM EDT Respiratory Rate 14 12/03/2024 9:19 AM EDT Oxygen Saturation 98% 01/02/2025 9:02 AM EDT Inhaled Oxygen Concentration 3% 06/04/2020 4 :00 PM EDT Weight 59.3 kg (130 lb 12.8 oz) 01/02/2025 9:02 AM EDT Height 173.8 cm (5' 8.43 ) 01/02/2025 9:02 AM ED T Body Mass Index 19.64 01/02/2025 9:02 AM EDT Plan of Treatment Upcoming Encounters Date Type Department Care Team (Late st Contact Info) Description 01/30/2025 2:40 PM EST Infusion [facility] [address] [address] Stephen Nelson MD [address] [place] [address] 01/31/2025 11:00 AM EST Office Visit [facility] Rheumatology [address] [place] [phone] Maria Del Rosario Graham MD [address] [place] [address], [address] [address] [email or web address] 02/28/2025 9:40 AM EST Infusion [facility] [address] [address] Stephen Nelson MD [address] [place] [phone] 03/28/2025 1:30 PM EST Appointment [facility] [address] [place] [address] Stephen Nelson MD [address] [place] [address] 03/28/2025 2:30 PM EST Office Visit [facility] [address] [address] Tracy Worrell FNP [address] [place] [address] 03/28/2025 3:20 PM EST Infusion [facility] [address] [place] [address] Stephen Nelson MD [address] [place] [address] [email or web address] 06/14/2025 1:00 PM EDT Office Visit [facility] Internal Medicine [address] [place] [address] Blair Foreman MD [address] [place] [address] [email or web address] Health Maintenance Due Date Last Done Comments COVID-19 VACCINE (#1) 08/18/1955 RSV VACCINE (1 - Risk 50-74 years 1-dose series) 2000 INFLUENZA VACCINE (#1) 2024 1, 12/17/2009, 12/12/2008, Additional history exists DEPRESSION SCREENING 05/01/2025 05/01/2024 FOLLOW UP BONE DENSITY TESTING 06/27/2025 06/28/2023, 02/25/2021, 02/22/2019, Additional history exists BLOOD PRESSURE 07/03/2025 01/02/2025 TSH LEVEL 12/03/2025 12/03/2024, 10/12, 07/02/2024, Additional history exists LIPID PANEL 08/10/2029 08/10/2024, 05/12, 04/14/2023, Additional history exists OSTEOPOROSIS SCREENING INITIAL (ONE-TIME) Completed 06/28/2023, 02/25/2021, 02/22/2019, Additional history exists HEPATITIS C SCREENING Completed 08/10/2024 , 08/04/2020, 08/04/2020 SMOKING STATUS SCREENING (Once After 26 Yrs) Completed 01/02/2025 HEPATITIS A VACCINES Aged Out No long er eligible based on patient's age to complete this topic HIB VACCINES Aged Out No longer eligi ble based on patient's age to complete this topic MENINGOCOCCAL VACCINES (ACWY) Aged Out No longer eligible based on patient's age to complete this topic MENINGOCOCCAL VACCINES (B) Aged Out N o longer eligible based on patient's age to complete this topic Medical Devices Not on file Procedures Procedure Name Priority Date/Time Associated Diagnosis Comments COMPREHENSIVE METABOLIC PANEL Routine 01/04/2025 8:51 AM EDT 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 Lobular carcinoma of right breast, stage 4 C-REACTIVE PROTEIN Routine 01/04/2025 8: 51 AM EDT 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 Lobular carcinoma of right breast, stage 4 SEDIMENTATION RATE (ESR) Routine 01/04/2025 8:51 AM EDT 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's 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 Lobular carcinoma of right breast, stage 4 CBC AND DIFFERENTIAL Routine 01/04/2025 8:51 AM EDT 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 Lobular carcinoma of right breast, stage 4 FERRITIN Routine 01/04/2025 8:51 AM EDT 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 Lobular carcinoma of right breast, stage 4 D-DIMER Routine 01/04/2025 8:51 AM EDT Adult Still's 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 Lobular carcinoma of right breast, stage 4 CORTISOL AM Routine 01/04/2025 8:51 AM EDT 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 COMPREHENSIVE METABOLIC PANEL Routine 01/02/2025 7:47 AM EDT Lobular carcinoma of right breast, stage 4 CBC AND DIFFERENTIAL Routine 01/02/2025 7:47 AM EDT Lobular carcinoma of right breast, stage 4 HEMOGLOBIN A1C Routine 12/03/2024 10:55 AM EDT Impaired fasting glucose TSH WITH REFLEX Routine 12/03/2024 10:55 AM EDT Postoperative hypothyroidism COMPREHENSIVE METABOLIC PANEL Routine 12/03/2024 10:55 AM EDT 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 Lobular carcinoma of right breast, stage 4 C-REACTIVE PROTEIN Routine 12/03/2024 10 :55 AM EDT Adult Still's 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 Lobular carcinoma of right breast, stage 4 SEDIMENTATION RATE (ESR) Routine 12/03/2024 10:55 AM EDT Adult Still's 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 Lobular carcinoma of right breast, stage 4 CBC AND DIFFERENTIAL Routine 12/03/2024 10:55 AM EDT 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 Lobular carcinoma of right breast, stage 4 FERRITIN Routine 12/03/2024 10:55 AM EDT 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 Lobular carcinoma of right breast, stage 4 COMPREHENSIVE METABOLIC PANEL Routine 11/29/2024 2:15 PM EDT Lobular carcinoma of right breast, stage 4 CBC AND DIFFERENTIAL Routine 11/29/2024 2:15 PM EDT Lobular carcinoma of right breast, stage 4 COMPREHENSIVE METABOLIC PANEL Routine 11/01/2024 1:02 PM EDT Lobular carcinoma of right breast, stage 4 CBC AND DIFFERENTIAL Routine 11/01/2024 1:02 PM EDT Lobular carcinoma of right breast, stage 4 T3, TOTAL Routine 10/29/2024 1:14 PM EDT Postoperative hypothyroidism Fatigue, unspecified type FREE T4 Routine 10/29/2024 1:14 PM EDT Fatigue, unspecified type TSH Routine 10/29/2024 1:14 PM EDT Postoperative hypothyroidism IRON AND IRON BINDING CAPACITY Routine 10/17/2024 2:27 PM EDT Adult Still's disease C-REACTIVE PROTEIN Routine 10/17/2024 2: 27 PM EDT 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 Lobular carcinoma of right breast, stage 4 SEDIMENTATION RATE (ESR) Routine 10/17/2024 2:27 PM EDT Adult Still's 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 Lobular carcinoma of right breast, stage 4 FERRITIN Routine 10/17/2024 2:27 PM EDT Adult Still's 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 Lobular carcinoma of right breast, stage 4 COMPREHENSIVE METABOLIC PANEL Routine 10/04/2024 8:11 AM EDT Lobular carcinoma of right breast, stage 4 CBC AND DIFFERENTIAL Routine 10/04/2024 8:11 AM EDT Lobular carcinoma of right breast, stage 4 LIPID PANEL Routine 08/10/2024 9:13 AM EDT Adult Still's disease Lobular carcinoma of right breast, stage 4 Elevated ferritin HEPATITIS C ANTIBODY, QUALITATIVE Routine 08/10/2024 9:13 AM EDT Adult Still's disease Lobular carcinoma of right breast, stage 4 Elevated ferritin BD DXA AXIAL (SPINE) WITH HIP Routine 06/28/2023 9:45 AM EDT Osteoporosis without current pathological fracture, unspecified osteoporosis type Lobular carcinoma of right breast, stage 4 from Last 3 Months or Most Recently Relevant to Health Maintenance Results * Cortisol AM (01/04/2025 8:51 AM EDT) CORTISOL AM 13.3 6.02 - 18.4 ug/dL [facility] Blood 01/04/2025 8:51 AM EDT 01/04/2025 9:02 AM EDT us Maria Del Rosario Graham MD LAB BLOOD ORDERABLES Fin al Result Performing Organization Address City/[facility]/ZIP Co de Phone Number [address] [address] * (ABNORMAL) Comprehensive metabolic panel (01/04/2025 8:51 AM EDT) Only the most recent of6 resultswithin the time period is included. SODIUM 142 133 - 146 mmol/L [facility] POTASSIUM 3.8 3.3 - 5.1 mmol/L [facility] CHLORIDE 103 96 - 108 mmol/L [facility] CO2 27 21 - 35 mmol/L [facility] BUN 9 6 - 19 mg/dL [facility] CREATININE 0.80 0.5 - 1.5 mg/dL [facility] GLUCOSE 101(H) 70 - 99 mg/dL [facility] ALBUMIN 4.2 3.9 - 4.8 g/dL [facility] TOTAL PROTEIN 8.0 6.5 - 8.0 g/dL [facility] CALCIUM 9.9 8.4 - 10.3 mg/dL [facility] ALKALINE PHOSPHATASE 92 39 - 117 U/L [facility] TOTAL BILIRUBIN 0.4 0.0 - 1.2 mg/dL [facility] AST 20 0 - 37 U/L [facility] ALT 14 0 - 40 U/L [facility] GLOBULIN 3.8 1 - 4.8 g/dL [facility] EGFR 77 >59 mL/min/1.7 3m2 [facility] Comment:Estimated glomerular filtration rate calculated using the CKD-EPI refit equation. ANION GAP 16 10 - 20 mmol/L [facility] Blood 01/04/2025 8:51 AM EDT 01/04/2025 9:02 AM EDT us Maria Del Rosario Graham MD LAB BLOOD ORDERABLES Fin al Result Performing Organization Address City/[facility]/ZIP Co de Phone Number [address] [address] * Sedimentation rate (ESR) (01/04/2025 8:51 AM EDT) Only the most recent of3 resultswithin the time period is included. ESR 28 0 - 30 mm/h [facility] Blood 01/04/2025 8:51 AM EDT 01/04/2025 9:02 AM EDT Maria Del Rosario Graham MD LAB BLOOD ORDERABLES Fin al Result Performing Organization Address [facility] de Phone Number [address] [address] * (ABNORMAL) D-dimer (01/04/2025 8:51 AM EDT) D-DIMER 623(H) <500 ng/mL FEU [facility] Comment:In patients with low to moderate pre-test probability scores for VTE (PE or DVT), a D-Dimer cut-off less than 500 ng/mL (FEU) has a negative predictive value (NPV) of 97 to 100%. Blood 01/04/2025 8:51 AM EDT 01/04/2025 9:02 AM EDT Maria Del Rosario Graham MD LAB BLOOD ORDERABLES Fin al Result Performing Organization Address [facility] de Phone Number [address] [address] * (ABNORMAL) CBC and differential (01/04/2025 8:51 AM EDT) Only the most recent of6 resultswithin the time period is included. WBC 7.52 4.00 - 11.00 K/uL [facility] RBC 4.80 4.00 - 5.20 M/uL [facility] HGB 14.1 12.0 - 16.0 g/dL [facility] HCT 44.2 36.0 - 46.0 % [facility] PLT 369 150 - 450 K/uL [facility] MCV 92.1 80.0 - 100.0 fL [facility] MCH 29.4 27.0 - 31.0 pg [facility] MCHC 31.9(L) 32.0 - 36.0 g/dL [facility] RDW 16.1(H) 11.5 - 14.5 % [facility] MPV 10.8 8.4 - 12.0 fL [facility] NRBC 0.00 0.00 /100 WBCs [facility] ABSOLUTE NRBC 0.00 0.00 K/uL [facility] DIFF METHOD Auto [facility] NEUTS 57.8 48.0 - 76.0 % [facility] LYMPHS 26.2 18.0 - 41.0 % [facility] MONOS 11.6(H) 4.0 - 11.0 % [facility] EOS 2.8 0.0 - 5.0 % [facility] BASOS 1.3 0.0 - 1.5 % [facility] Granulocytes, immature (%) 0.3 0.0 - 0.9 % [facility] ABSOLUTE NEUTS 4.35 1.92 - 7.60 K/uL [facility] ABSOLUTE LYMPHS 1.97 0.72 - 4.10 K/uL [facility] ABSOLUTE MONOS 0.87 0.16 - 1.10 K/uL [facility] ABSOLUTE EOS 0.21 0.00 - 0.50 K/uL [facility] ABSOLUTE BASOS 0.10 0.00 - 0.15 K/uL [facility] Granulocytes, immature 0.02 0.00 - 0.09 K/uL [facility] Blood 01/04/2025 8:51 AM EDT 01/04/2025 9:02 AM EDT us Maria Del Rosario Graham MD LAB BLOOD ORDERABLES Fin al Result [address] [address] * C-Reactive Protein (01/04/2025 8:51 AM EDT) Only the most recent of3 resultswithin the time period is included. C REACTIVE PROTEIN <3.0 0.0 - 4.0 mg/L [facility] Blood 01/04/2025 8:51 AM EDT 01/04/2025 9:02 AM EDT us Maria Del Rosario Graham MD LAB BLOOD ORDERABLES Fin al Result Performing Organization Address City/[facility] Co de Phone Number [address] [address] * Ferritin (01/04/2025 8:51 AM EDT) Only the most recent of3 resultswithin the time period is included. FERRITIN 84 13 - 150 ug/L [facility] Blood 01/04/2025 8:51 AM EDT 01/04/2025 9:02 AM EDT us Maria Del Rosario Graham MD LAB BLOOD ORDERABLES Fin al Result Performing Organization Address [facility] Co de Phone Number [address] [address] * TSH with reflex (12/03/2024 10:55 AM EDT) TSH 0.61 0.27 - 4.20 uIU/mL [facility] Blood 12/03/2024 10:5 5 AM EDT 12/03/2024 10:58 AM EDT us Blair Foreman MD LAB BLOOD ORDERABLES Final Re sult Performing Organization Address [facility] Co de Phone Number [address] [address] * (ABNORMAL) Hemoglobin A1c (12/03/2024 10:55 AM EDT) HEMOGLOBIN A1C 6.4(H) 4.3 - 5.8 % [facility] Blood 12/03/2024 10:5 5 AM EDT 12/03/2024 10:57 AM EDT us Blair Foreman MD LAB BLOOD ORDERABLES Final Re sult Performing Organization Address [facility]/ZIP Co de Phone Number [address] [address] * T3, Total (10/29/2024 1:14 PM EDT) TOTAL T3 105 60 - 181 ng/dL [facility] Blood 10/29/2024 1:14 PM EDT 10/29/2024 1:17 PM EDT us Blair Foreman MD LAB BLOOD ORDERABLES Final Re sult Performing Organization Address [facility]/ZIP Co de Phone Number [address] [address] * TSH (10/29/2024 1:14 PM EDT) TSH 0.45 0.27 - 4.20 uIU/mL [facility] Blood 10/29/2024 1:14 PM EDT 10/29/2024 1:18 PM EDT us Blair Foreman MD LAB BLOOD ORDERABLES Final Re sult Performing Organization Address [facility]/ZIP Co de Phone Number [address] [address] * Free T4 (10/29/2024 1:14 PM EDT) FREE T4 1.6 0.9 - 1.7 ng/dL [facility] Blood 10/29/2024 1:14 PM EDT 10/29/2024 1:18 PM EDT us Blair Foreman MD LAB BLOOD ORDERABLES Final Re sult Performing Organization Address [facility]/ZIP Co de Phone Number [address] [address] * Iron and iron binding capacity (10/17/2024 2:27 PM EDT) IRON 79 30 - 160 ug/dL [facility] IRON BINDING CAPACITY 400 228 - 428 ug/dL [facility] TRANSFERRIN SATURAT. 20 15 - 50 % [facility] Blood 10/17/2024 2:27 PM EDT 10/17/2024 2:36 PM EDT Maria Del Rosario Graham MD LAB BLOOD ORDERABLES Fin al Result Performing Organization Address City/[facility]/ZIP Co de Phone Number [address] [address] * Hepatitis C antibody, qualitative (08/10/2024 9:13 AM EDT) HCV NON-REACTIV E NON-REACTI VE [facility] Blood 08/10/2024 9:13 AM EDT 08/10/2024 9:33 AM EDT Maria Del Rosario Graham MD LAB BLOOD ORDERABLES Fin al Result Performing Organization Address [facility] Co de Phone Number [address] [address] * (ABNORMAL) Lipid panel (08/10/2024 9:13 AM EDT) HDL 127 mg/dL [facility] Comment: Interpretation <40 mg/dL: Low HDL cholesterol (major risk factor for CHD) Greater than or equal to 60 mg/dL: High HDL cholesterol ( negative risk factor for CHD) HDL - cholesterol is affected by a number of factors, e.g. smoking, excerise, hormones, sex and age. CHOLESTEROL 297(H) 0 - 240 mg/dL [facility] TRIGLYCERIDES 190(H) 30 - 160 mg/dL [facility] LDL 132(H) 50 - 129 mg/dL [facility] Comment: LDL levels in terms of risk for coronary heart disease: <100 mg/dL: Optimal 100-129 mg/dL: Near or above optimal 130-159 mg/dL: Borderline high 160-189 mg/dL: High >190 mg/dL: Very High CARDIAC RISK RATIO 2.3(L) 3.3 - 4.4 [facility] Blood 08/10/2024 9:13 AM EDT 08/10/2024 9:34 AM EDT us Maria Del Rosario Graham MD LAB BLOOD ORDERABLES Fin al Result Performing Organization Address City/State/[facility] Co de Phone Number [address] [address] * BD DXA AXIAL (SPINE) WITH HIP (06/28/2023 9:45 AM EDT) Anatomical Region Laterality Modality Bone Density Bone Density 06/29/2023 12:4 9 PM EDT Impressions 06/29/2023 7:14 PM EDT Osteoporosis bone mineral density in the right femoral neck and left total hip. ATTESTATION: I, Rebel Hutchinson as teaching physician, have reviewed the images for this case and if necessary edited the report originally created by Hiren Murdock. Narrative 06/29/2023 7:14 PM EDT BD DXA AXIAL (SPINE) WITH HIP INDICATION: Postmenopausal estrogen deficiency. COMPARISON: XR hip 2 view right plus pelvis. Evaluation of the lumbar spine and both hips is obtained and appears technically adequate. The lumbar spine from L1 through L4 discloses a total bone mineral density of 0.929 g/cm2 T-score: -1.1 Z-Score: 1.2 WHO Classification: Osteopenia The right hip (total) has a total bone mineral density of 0.682 g/cm2 T-score: -2.1 Z-Score: -0.5 WHO Classification: Osteopenia The right hip (neck) has a total bone mineral density of 0.526 g/cm2 T-score: -2.9 Z-Score: -1.0 WHO classification: Osteoporosis The left hip (total) has a total bone mineral density of 0.622 g/cm2 T-score: -2.6 Z-Score: -1.0 WHO Classification: Osteoporosis The left hip (neck) has a total bone mineral density of 0.580 g/cm2 T-score: -2.4 Z-Score: -0.5 WHO classification: Osteopenia FRAX: 10-Year Fracture Risk Major Osteoporotic Fracture: 13% Hip Fracture: 3.6% Procedure Note Rebel Hutchinson MD - 06/29/2023 BD DXA AXIAL (SPINE) WITH HIP INDICATION: Postmenopausal estrogen deficiency. COMPARISON: XR hip 2 view right plus pelvis. Evaluation of the lumbar spine and both hips is obtained and appearstechnically adequate. The lumbar spine from L1 through L4 discloses a total bone mineral densityof 0.929 g/cm2 T-score: -1.1 Z-Score: 1.2 WHO Classification: Osteopenia The right hip (total) has a total bone mineral density of 0.682 g/cm2 T-score: -2.1 Z-Score: -0.5 WHO Classification: Osteopenia The right hip (neck) has a total bone mineral density of 0.526 g/cm2 T-score: -2.9 Z-Score: -1.0 WHO classification: Osteoporosis The left hip (total) has a total bone mineral density of 0.622 g/cm2 T-score: -2.6 Z-Score: -1.0 WHO Classification: Osteoporosis The left hip (neck) has a total bone mineral density of 0.580 g/cm2 T-score: -2.4 Z-Score: -0.5 WHO classification: Osteopenia FRAX: 10-Year Fracture Risk Major Osteoporotic Fracture: 13% Hip Fracture: 3.6% IMPRESSION: Osteoporosis bone mineral density in the right femoral neck and left totalhip. ATTESTATION: I, Rebel Hutchinson as teaching physician, have reviewed theimages for this case and if necessary edited the report originally createdby Hiren Murdock. Blair Foreman MD [facility] BD BONE DENSITY DEXA Alla l Result from Last 3 Months or Most Recently Relevant to Health Maintenance Insurance MEDICARE PART A & B [employer] MEDEX SUPPLEMENT MEDICARE PART A & B [employer] MEDEX SUPPLEMENT MEDICARE PART A & B [facility] MEDEX SUPPLEMENT MEDICARE PART A & B [employer] MEDEX SUPPLEMENT MEDICARE PART A & B [employer] SUPPLEMENT MEDICARE PART A & B [employer] MEDEX SUPPLEMENT MEDICARE PART A & B [employer] MEDEX SUPPLEMENT MEDICARE PART A & B [employer] MEDEX SUPPLEMENT MEDICARE PART A & B [employer] MEDEX SUPPLEMENT Advance Directives For more information, please contact: [phone] (9AM - 5PM [facility], Tuesday-Tuesday) Documents on File Type Date Recorded Patient Manager Provider Relations Expl anation Healthcare Proxy 06/13/2020 9:51 AM MOLST 08/07/2020 Molst Form * DNR/DNI (No CPR/No Intubation) (Latest Code Status on File) Date Activated Date Inactivated Comments 06/02/2020 10:50 PM Question Answer Comments Code Status Confirmed With: Patient Care Teams Sole Scraper Relationship Specialty Start Date End Date Blair Foreman MD [address] [place] [phone] [email or web address] PCP - General Internal Medicine 01/07/20 Marybeth Denton MD [address] [place] [phone] [email or web address] Medical [email or web address] 12/04/19 Karo Rondon NP [address] [place] [phone] Obstetrics and Gynecology 12/04/19 Stephen Nelson MD [address] [place] [address] [email or web address] Primary Oncologist Medical Oncology 02/02/21 Livia Narvaez CNP [address] [place] [address] [email or web address] Nurse Practitioner Medical Oncology 07/04/21 Blair Foreman MD [address] [place] [id number] [email or web address] Insurance Assigned Provider 06/18/23 Petty De La Rosa NP [address] [place] [address] [email or web address] Nurse Practitioner 08/02/24 Additional Source Comments The information contained in this document represents components of the legal health record. It is not the complete legal health record.[facility]
--- OUTSIDE RECORDS SUMMARY | 2025-01-04 12:23 | XMS_ITS | Encounter Summary ---
Author Organization [facility] Address [address] [place] [address] Phone Care Team Providers Care Tractor Trailer Driver Name Role Phone Marybeth Denton MD Unavailable [phone] Karo Rondon NP Unavailable Blair Foreman MD Primary Care Provider Blair Foreman MD Unavailable Stephen Nelson MD Unavailable [phone] Livia Narvaez CNP Unavailable Blair Foreman MD Unavailable Petty De La Rosa SPREADER Unavailable Encounter Details Date Type Department Care Team (Late st Contact Info) Description 06/04/2020 Procedure Pass [facility] Cardiovascular And Interventional Radiology [address] [place] [address] Social History Tobacco Use Types Packs/Day Years [...] Info) Description 01/30/2025 2:40 PM EST Infusion [facility] at [address] [address] Stephen Nelson MD [address] [place] [address] 01/31/2025 11:00 AM EST Office Visit [facility] Rheumatology [address] [place] [address] Maria Del Rosario Graham MD 22 [facility], [address] [place] [address] [email or web address] 02/28/2025 9:40 AM EST Infusion [facility] at [address] [address] Stephen Nelson MD [address] [place] [address] 03/28/2025 1:30 PM EST Appointment [facility] [address] [place] [address] Stephen Nelson MD [address] [place] [address] 03/28/2025 2:30 PM EST Office Visit [facility] at [address] [address] Tracy Worrell FNP [address] [place] [address] 03/28/2025 3:20 PM EST Infusion [facility] at [address] [address] Stephen Nelson MD [address] [place] [address] [email or web address] 06/14/2025 1:00 PM EDT Office Visit [facility] Internal Medicine 40 [place] [address] Blair Foreman MD 40 [place] [address] [email or web address] [...] documented as of this encounter Care Teams Tractor Trailer Driver Relationship Specialty Start Date End Date Blair Foreman MD 40 [place] [address] [email or web address] PCP - General Internal Medicine 01/07/20 Marybeth Denton MD [address] [place] [address] [email or web address] Medical Oncology 12/04/19 Karo Rondon NP [address] [place] [address] Obstetrics and Gynecology 12/04/19 Blair Foreman MD [address] [place] [address] Insurance Assigned Provider 06/21/20 02/02/21 Stephen Nelson MD [address] [place] [address] Primary Oncologist Medical Oncology 02/02/21 Livia Narvaez CNP [address] [place] [address] Nurse Practitioner Medical Oncology 07/04/21 Blair Foreman MD [address] [place] [address] Insurance Assigned Provider 06/18/23 Petty De La Rosa, REINIER [address] [place] [address] [email or web address] Nurse Practitioner 08/02/24 documented as of this encounter Additional Source Comments The information contained in this document represents components of the legal health record. It is not the complete legal health record.[facility]
--- OUTSIDE RECORDS SUMMARY | 2025-01-04 12:23 | XMS_ITS | Encounter Summary ---
Author Organization [facility] Address [address] [place] [address] Phone Care Team Providers Care Brim Flexer Name Role Phone Marybeth Denton MD Unavailable Karo Rondon NP Unavailable Blair Foreman MD Primary Care Provider Blair Foreman MD Unavailable Stephen Nelson MD Unavailable [phone] Livia Narvaez CNP Unavailable Blair Foreman MD Unavailable Petty De La Rosa INSIGHTS ANALYST Unavailable Encounter Details Date Type Department Care Team (Late st Contact Info) Description 06/03/2020 Procedure Pass [facility], Ct Scan - [address] [address] Social History Tobacco Use Types Packs/Day Years [...] 1:00 AM EDT Licha Caldwell RN * [place] Suicide Severity Rating Scale (Screener/Recent Self-Report) Question Answer Date of Assessment Author 1. Wish to be (Past 1 Month) No 021 1:00 AM RAMONT Lciha Caldwell RN 2. Non-Specific Active Suici vivian Thoughts (Past 1 Month) No 06/03/2020 1:00 AM EDT Catrachito Caldwell RN 6. Suicidal Behavior (Lifetime) No 1:00 AM EDT Licha Caldwell RN documented as of this encounter Plan of Treatment Upcoming Encounters Date Type Department Care Team (Late st Contact Info) Description 01/30/2025 2:40 PM EST Infusion [facility] at [address] [address] Stephen Nelson MD [address] [place] [address] 01/31/2025 11:00 AM EST Office Visit [facility] Rheumatology [address] [place] [address] Maria Del Rosario Graham MD [address] [place] [address], [address] [place] [address] [email or web address] 02/28/2025 9:40 AM EST Infusion [facility] at [address] [address] Stephen Nelson MD [address] [place] [address] [id number] 03/28/2025 1:30 PM EST Appointment [facility] [address] [place] [address] Stephen Nelson MD [address] [place] [address] [id number] 03/28/2025 2:30 PM EST Office Visit [facility] at [address] [address] Tracy Worrell FNP 30 [place] [address] 03/28/2025 3:20 PM EST Infusion [facility] at [address] [address] Stephen Nelson MD [address] [place] [address] 06/14/2025 1:00 PM EDT Office Visit [facility] Internal Medicine 40 [place] [address] Blair Foreman MD 40 [place] [address] [email or web address] documented as of this encounter Visit Diagnoses [...] documented as of this encounter Care Teams Brim Flexer Relationship Specialty Start Date End Date Blair Foreman MD [address] [place] [address] [email or web address] PCP - General Internal Medicine 01/07/20 Marybeth Denton MD [address] [place] [address] [email or web address] 12/04/19 Karo Rondon NP [address] [place] [address] Obstetrics and Gynecology 12/04/19 Blair Foreman MD [address] [place] [address] [email or web address] Insurance Assigned Provider 06/21/20 02/02/21 Stephen Nelson MD [address] [place] [address] [email or web address] Primary Oncologist Medical Oncology 02/02/21 Livia Narvaez CNP [address] [place] [address] Nurse Practitioner Medical Oncology 07/04/21 Blair Foreman MD [address] [place] [address] [email or web address] Insurance Assigned Provider 06/18/23 Petty De La Rosa, REINIER [address] [place] [address] [email or web address] Nurse Practitioner 08/02/24 documented as of this encounter Additional Source Comments The information contained in this document represents components of the legal health record. It is not the complete legal health record.[facility]
--- OUTSIDE RECORDS SUMMARY | 2025-01-04 12:23 | XMS_ITS | Encounter Summary ---
Author Organization [facility] Address [address] [place] [address] Phone Care Team Providers Care Procurement Professional Name Role Phone Marybeth Denton MD Unavailable [phone] Karo Rondon NP Unavailable [phone] Blair Foreman MD Primary Care Provider Blair Foreman MD Unavailable [phone] Stephen Nelson MD Unavailable [phone] Livia Narvaez CNP Unavailable Blair Foreman MD Unavailable [phone] Petty De La Rosa CAUSTIC ROOM OPERATOR Unavailable Encounter Details Date Type Department Care Team (Late st Contact Info) Description 06/09/2020 Procedure Pass [facility] Cardiovascular And Interventional Radiology 30 [place] [address] Social History Tobacco Use Types Packs/Day Years [...] Info) Description 01/30/2025 2:40 PM EST Infusion [facility] [place] at [address] [address] Stephen Nelson MD [address] [place] [address] 01/31/2025 11:00 AM EST Office Visit [facility] Rheumatology [address] [place] [address] Maria Del Rosario Graham MD [address] [facility], [address] [place] [address] [email or web address] 02/28/2025 9:40 AM EST Infusion [facility] at [address] [address] Stephen Nelson MD [address] [place] [address] 03/28/2025 1:30 PM EST Appointment [facility] [address] [place] [address] Stephen Nelson MD [address] [place] [address] 03/28/2025 2:30 PM EST Office Visit [facility] [place] at [address] [address] Tracy Worrell FNP [address] [place] [address] 03/28/2025 3:20 PM EST Infusion [facility] at [address] [address] Stephen Nelson MD [address] [place] [address] 06/14/2025 1:00 PM EDT Office Visit [facility] Internal Medicine 40 [place] [address] Blair Foreman MD 40 [place] [address] [email or web address] documented as of this encounter Visit Diagnoses [...] documented as of this encounter Care Teams Procurement Professional Relationship Specialty Start Date End Date Blair Foreman MD [address] [place] [address] [email or web address] PCP - General Internal Medicine 01/07/20 Marybeth Denton MD [address] [place] [address] [email or web address] 12/04/19 Karo Rondon NP [address] [place] [address] Obstetrics and Gynecology 12/04/19 Blair Foreman MD [address] [place] [address] [email or web address] Insurance Assigned Provider 06/21/20 02/02/21 Stephen Nelson MD [address] [place] [address] Primary Oncologist Medical Oncology 02/02/21 Livia Narvaez CNP [address] [place] [address] [email or web address] Nurse Practitioner Medical Oncology 07/04/21 Blair Foreman MD [address] [place] [address] Insurance Assigned Provider 06/18/23 Petty De La Rosa NP [address] [place] [address] [email or web address] Nurse Practitioner 08/02/24 documented as of this encounter Additional Source Comments The information contained in this document represents components of the legal health record. It is not the complete legal health record.[facility]
--- OUTSIDE RECORDS SUMMARY | 2025-01-04 12:24 | XMS_ITS | Patient Health Record ---
Author Organization [facility] Address [address] [place] [address] Care Team Providers Care Office Secretary Name Role Phone Blair Foreman MD Primary Care Provider Prince Storm [phone] Allergies Allergen (clinical drug ingredient) Drug/Non Drug Allergy documented on EMR Reaction Allergy Type Onset Date Status Sulfa Unknown Drug Allergy Active olsalazine Dipentum Unknown Drug Allergy Active sulfasalazine Azulfidine (uncoded) Unknown Allergy Active Reason For Referral No Information Medications Medication SIG (Take, Route, Frequency, Duration) Notes Start Date End Date Status Nyamyc 534663 UNIT/GM 1 application Exte rnally Twice a day; Duration: 30 days Active Synthroid 50 MCG 1 tablet Orally Once a day Active Metoprolol-HCTZ ER 25-12.5 MG 1 tablet Orally Once a day A ctive Simvastatin 10 MG 1 tablet in the even ing Orally Once a day Active Nystatin 297526 UNIT/GM USE DIRECTED WHEN CHANGING OSTOMY BAG; Duration: 30 Active Problems Problem Type SNOMED Code ICD Code Onset Dates Problem Status W/U Status Risk Notes Problem 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, 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 Plan Of Treatment Future Test Test Name Order Date FLEXIBLE SIGMOIDOSCOPY WITH BIOPSY 04/19 Insurance Providers Payer Name Payer Address Payer Phone Subscriber Number Group Number Insured Name Patient Relationship to Insured Coverage Start Date Coverage End Date [facility] [address] [place] [address] [id number] LEVI GUY Self - patient is [...] from chemo Hyperlipidemia Hypothyroidism Graves Disease Denies SC,DM,CVA,Lung disease,renal dise ase Surgical History Surgery Date(Month/Year) Subtotal colectomy for refra ctory ulcerativie colitis--permanent ileostomy--1995[facility] Status post splenectomy for hemolyic ane leigh Bilateral mastectomy 07/2010 Partial thyroidectomy BERNABE 2001
--- OUTSIDE RECORDS SUMMARY | 2025-01-04 12:24 | XMS_ITS | Encounter Summary ---
Author Organization [facility] Address [address] [place] [address] Phone Care Team Providers Care Artificial Flowers Starcher Name Role Phone Marybeth Denton MD Unavailable Karo Rondon NP Unavailable Blair Foreman MD Primary Care Provider Stephen Nelson MD Unavailable [phone] Livia Narvaez CNP Unavailable Blair Foreman MD Unavailable Petty De La Rosa NP Unavailable Encounter Details Date Type Department Care Team (Late st Contact Info) Description 02/08/2021 Procedure Pass [facility], Ct Scan - [address] [address] Social History Tobacco Use Types Packs/Day Years Used Date Smoking Tobacco: Never Smokeless Tobacco: Never Alcohol Use Standard Drinks/Week Comments Yes 0 (1 standard drink = 0.6 oz pur e alcohol) 0-1 wine per week Comments No Sex and Gender Information Value Date Recorded Sex Assigned at Female 03/21/2017 9:38 AM EST Legal Sex Female 10:01 PM EDT Gender Identity Female 03/21/2017 9:38 AM EST Sexual Orientation Straight 03/21/2017 9: 38 AM EST documented as of this encounter Functional Status * Calculated C-SSRS Risk Score (Lifetime/Recent) Answer Date of Assessment Author No Risk Indicated 02/08/2021 12:45 PM EST Jossie Pereira RN * [place] Suicide Severity Rating Scale (Screener/Recent Self-Report) Question Answer Date of Assessment Author 1. Wish to be (Past 1 Month) No 021 12:45 PM Jossie Leger, GILLES 2. Non-Specific Active Suici vivian Thoughts (Past 1 Month) No 02/08/2021 12:45 PM Jossie Leger, GILLES 6. Suicidal Behavior (Lifetime) No 12:45 PM Jossie Leger RN documented as of this encounter Plan of Treatment Upcoming Encounters Date Type Department Care Team (Late st Contact Info) Description 01/30/2025 2:40 PM EST Infusion [facility] at [address] [address] Stephen Nelson MD [address] [place] [address] [email or web address] 01/31/2025 11:00 AM EST Office Visit [facility] Rheumatology [address] [place] [address] Maria Del Rosario Graham MD [address] [place] [address], [address] [place] [address] [email or web address] 02/28/2025 9:40 AM EST Infusion [facility] at [address] [address] Stephen Nelson MD [address] [place] [address] [email or web address] 03/28/2025 1:30 PM EST Appointment [facility] [address] [place] [address] Stephen Nelson MD [address] [place] [address] 03/28/2025 2:30 PM EST Office Visit [facility] at [address] [address] Tracy Worrell FNP 30 [place] [address] 03/28/2025 3:20 PM EST Infusion [facility] at [address] [address] Stephen Nelson MD 30 [place] [address] 06/14/2025 1:00 PM EDT Office Visit [facility] Internal Medicine 40 [place] [address] Blair Foreman MD 40 [place] [address] [email or web address] documented as of this encounter Visit Diagnoses Not on filedocumented in this encounter Additional Health Concerns Infection Onset Date Last Indicated Resolved Time COVID-19 06/22/2021 06/23/2021 07/14/2021 1:21 AM EDT Assessment Noted Time PHQ-2 Depression Total Score: 0 02/28/20 9:30 AM EST documented as of this encounter Care Teams Artificial Flowers Starcher Relationship Specialty Start Date End Date Blair Foreman MD 40 [place] [address] [email or web address] PCP - General Internal Medicine 01/07/20 Marybeth Denton MD [address] [place] [address] [email or web address] 12/04/19 Karo Rondon NP [address] [place] [address] Obstetrics and Gynecology 12/04/19 Stephen Nelson MD [address] [place] [address] [email or web address] Primary Oncologist Medical Oncology 02/02/21 Livia Narvaez CNP [address] [place] [address] [email or web address] Nurse Practitioner Medical Oncology 07/04/21 Blair Foreman MD [address] [place] [address] [email or web address] Insurance Assigned Provider 06/18/23 Petty De La Rosa NP [address] [place] [address] [email or web address] Nurse Practitioner 08/02/24 documented as of this encounter Additional Source Comments The information contained in this document represents components of the legal health record. It is not the complete legal health record.[facility]
--- OUTSIDE RECORDS SUMMARY | 2025-01-04 12:24 | XMS_ITS | Encounter Summary ---
Author Organization [facility] Address [address] [place] [address] Phone Care Team Providers Care Roll Line Operator Name Role Phone Marybeth Denton MD Unavailable Karo Rondon NP Unavailable [phone] Blair Foreman MD Primary Care Provider [phone] Stephen Nelson MD Unavailable [phone] Livia Narvaez CNP Unavailable Blair Foreman MD Unavailable Petty De La Rosa NP Unavailable Encounter Details Date Type Department Care Team (Late st Contact Info) Description 12/26/2024 Orders Only [facility] at [address] [address] Yuliana Lee, [facility] [address] [place] [address] Lobular carcinoma of right breast, stage 4 [...] Info) Description 01/30/2025 2:40 PM EST Infusion [facility] at [address] [address] Stephen Nelson MD [address] [place] [address] 01/31/2025 11:00 AM EST Office Visit [facility] Rheumatology [address] [place] [address] Maria Del Rosario Graham MD [address] [place] [address], [address] [place] [address] [email or web address] 02/28/2025 9:40 AM EST Infusion [facility] at [address] [address] Stephen Nelson MD [address] [place] [address] 03/28/2025 1:30 PM EST Appointment [facility] [address] [place] [address] Stephen Nelson MD [address] [place] [address] 03/28/2025 2:30 PM EST Office Visit [facility] at [address] [address] Tracy Worrell FNP [address] [place] [address] 03/28/2025 3:20 PM EST Infusion [facility] at [address] [address] Stephen Nelson MD [address] [place] [address] 06/14/2025 1:00 PM EDT Office Visit [facility] [place] Internal Medicine 40 [place] [address] Blair Foreman MD [address] [place] [address] [email or web address] documented as of this encounter Results * Comprehensive metabolic panel (01/02/2025 7:47 AM EDT) SODIUM 142 133 - 146 mmol/L [facility] POTASSIUM 4.0 3.3 - 5.1 mmol/L [facility] CHLORIDE 103 96 - 108 mmol/L [facility] CO2 27 21 - 35 mmol/L [facility] BUN 10 6 - 19 mg/dL [facility] CREATININE 0.70 0.5 - 1.5 mg/dL [facility] GLUCOSE 93 70 - 99 mg/dL [facility] ALBUMIN 4.6 3.9 - 4.8 g/dL [facility] TOTAL PROTEIN 8.0 6.5 - 8.0 g/dL [facility] CALCIUM 9.8 8.4 - 10.3 mg/dL [facility] ALKALINE PHOSPHATASE 87 39 - 117 U/L [facility] TOTAL BILIRUBIN 0.4 0.0 - 1.2 mg/dL [facility] AST 18 0 - 37 U/L [facility] ALT 11 0 - 40 U/L [facility] GLOBULIN 3.4 1 - 4.8 g/dL [facility] EGFR 91 >59 mL/min/1.7 3m2 [facility] Comment:Estimated glomerular filtration rate calculated using the CKD-EPI refit equation. ANION GAP 16 10 - 20 mmol/L [facility] Blood 01/02/2025 7:47 AM EDT 01/02/2025 7:58 AM EDT us Stephen Nelson MD LAB BLOOD ORDERABLES Final Res ult [facility] [address] [place], [place] [id number] * (ABNORMAL) CBC and differential (01/02/2025 7:47 AM EDT) WBC 5.77 4.00 - 11.00 K/uL [facility] RBC 4.92 4.00 - 5.20 M/uL [facility] HGB 14.3 12.0 - 16.0 g/dL [facility] HCT 45.8 36.0 - 46.0 % [facility] PLT 384 150 - 450 K/uL [facility] MCV 93.1 80.0 - 100.0 fL [facility] MCH 29.1 27.0 - 31.0 pg [facility] MCHC 31.2(L) 32.0 - 36.0 g/dL [facility] RDW 16.2(H) 11.5 - 14.5 % [facility] MPV 11.0 8.4 - 12.0 fL [facility] NRBC 0.00 0.00 /100 WBCs [facility] ABSOLUTE NRBC 0.00 0.00 K/uL [facility] DIFF METHOD Auto [facility] NEUTS 46.3(L) 48.0 - 76.0 % [facility] LYMPHS 35.0 18.0 - 41.0 % [facility] MONOS 14.4(H) 4.0 - 11.0 % [facility] EOS 2.3 0.0 - 5.0 % [facility] BASOS 1.7(H) 0.0 - 1.5 % [facility] Granulocytes, immature (%) 0.3 0.0 - 0.9 % [facility] ABSOLUTE NEUTS 2.67 1.92 - 7.60 K/uL [facility] ABSOLUTE LYMPHS 2.02 0.72 - 4.10 K/uL [facility] ABSOLUTE MONOS 0.83 0.16 - 1.10 K/uL [facility] ABSOLUTE EOS 0.13 0.00 - 0.50 K/uL [facility] ABSOLUTE BASOS 0.10 0.00 - 0.15 K/uL [facility] Granulocytes, immature 0.02 0.00 - 0.09 K/uL [facility] Blood 01/02/2025 7:47 AM EDT 01/02/2025 7:58 AM EDT us Stephen Nelson MD LAB BLOOD ORDERABLES Final Res ult Performing Organization Address City/State/[facility] Co de Phone Number [address] [address] documented in this encounter Visit Diagnoses Diagnosis Lobular carcinoma of right breast, stage 4- Primary documented in this encounter Additional Health Concerns Assessment Noted Time PHQ-2 Depression Total Score: 0 05/01/19 25 4:07 PM EST documented as of this encounter Care Teams Roll Line Operator Relationship Specialty Start Date End Date Blair Foreman MD [address] [place] [address] [email or web address] PCP - General Internal Medicine 01/07/20 Marybeth Denton MD [address] [place] [address] [email or web address] 12/04/19 Karo Rondon NP [address] [place] [address] Obstetrics and Gynecology 12/04/19 Stephen Nelson MD [address] [place] [address] [email or web address] Primary Oncologist Medical Oncology 02/02/21 Livia Narvaez CNP [address] [place] [address] [email or web address] Nurse Practitioner Medical Oncology 07/04/21 Blair Foreman MD [address] [place] [address] [email or web address] Insurance Assigned Provider 06/18/23 Petty De La Rosa NP [address] [place] [address] [email or web address] Nurse Practitioner 08/02/24 documented as of this encounter Additional Source Comments The information contained in this document represents components of the legal health record. It is not the complete legal health record.[facility]
--- OUTSIDE RECORDS SUMMARY | 2025-01-04 12:24 | XMS_ITS | Encounter Summary ---
Author Organization [facility] Address [address] [place] [address] Phone Care Team Providers Care Otr Flatbed Driver Name Role Phone Marybeth Denton MD Unavailable [phone] Karo Rondon NP Unavailable [phone] Blair Foreman MD Primary Care Provider [phone] Blair Foreman MD Unavailable [phone] Stephen Nelson MD Unavailable [phone] Livia Narvaez CNP Unavailable Blair Foreman MD Unavailable Petty De La Rosa MAIL SUPERINTENDENT Unavailable [phone] Encounter Details Date Type Department Care Team (Late st Contact Info) Description 12/29/2020 Telephone [facility] Rheumatology [address] [place] [address] Harpreet Varghese MD [address] [place] [address] [email or web address] Social History Tobacco Use Types Packs/Day Years [...] Info) Description 01/30/2025 2:40 PM EST Infusion [facility] at [address] [address] Stephen Nelson MD [address] [place] [address] 01/31/2025 11:00 AM EST Office Visit [facility] Rheumatology [address] [place] [phone] Maria Del Rosario Graham MD [address] [place] [address], [address] [place] [address] [email or web address] 02/28/2025 9:40 AM EST Infusion [facility] at [address] [address] Stephen Nelson MD [address] [place] [address] 03/28/2025 1:30 PM EST Appointment [facility] [address] [place] [phone] Stephen Nelson MD [address] [place] [address] 03/28/2025 2:30 PM EST Office Visit [facility] at [address] [address] Tracy Worrell FNP [address] [place] [address] 03/28/2025 3:20 PM EST Infusion [facility] at [facility] [address] [place] [address] Stephen Nelson MD [address] [place] [phone] [email or web address] 06/14/2025 1:00 PM EDT Office Visit [facility] Internal Medicine [address] [place] [address] Blair Foreman MD [address] [place] [address] 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 PCP - General Internal Medicine 01/07/20 Marybeth Denton MD [address] [place] [id number] [email or web address] 12/04/19 Karo Rondon NP [address] [place] [address] Obstetrics and Gynecology 12/04/19 Blair Foreman MD [address] [place] [address] Insurance Assigned Provider 06/21/20 02/02/21 Stephen Nelson MD [address] [place] [address] Primary Oncologist Medical Oncology 02/02/21 Livia Narvaez CNP [address] [place] [address] Nurse Practitioner Medical Oncology 07/04/21 Blair Foreman MD [address] [place] [phone] Insurance Assigned Provider 06/18/23 Petty De La Rosa NP [address] [place] [address] [email or web address] Nurse Practitioner 08/02/24 documented as of this encounter Additional Source Comments The information contained in this document represents components of the legal health record. It is not the complete legal health record.[facility]
== END 2025-01-04 11:22 | disposition home or self-care (01) ==
PROVIDERS: PCP Internal Medicine; Visit Provider Internal Medicine
DX: S41.131A Puncture wound without foreign body of right upper arm, initial encounter (principal); W55.03XA Scratched by cat, initial encounter

== ENCOUNTER → 2025-01-04 10:43 | Outpatient (BNVA) | payer MEDICARE, SELFPAY | PROVIDERS: PCP Internal Medicine; Visit Provider Internal Medicine | DX: S41.131A Puncture wound without foreign body of right upper arm, initial encounter (principal); W55.03XA Scratched by cat, initial encounter | CPT/HCPCS: 99212 ==